=== PATIENT | male | born 1940 | race Caucasian/White ===

== ENCOUNTER → 2017-07-28 08:35 | Outpatient (CLI) | payer MEDICARE, OTHER, SELFPAY ==
[2017-07-22 08:54] VITALS: BP 130/70; BMI 23.5
--- NOTE | 2017-07-28 08:45 | ECHOD_ITS ---
Reason For Study: DYSPNEA/SOB Procedure This was a 2D Doppler, Color Flow transthoracic echocardiogram. Exam performed in department. Left Ventricle Normal LV size. Mild global left ventricular systolic dysfunction. The estimated ejection fraction is 45 %. No regional wall motion abnormalities noted. Right Ventricle Normal RV size. Mild global right ventricular systolic dysfunction. Atria The left atrium is mildly enlarged. Normal right atrium. Mitral Valve Normal mitral valve. Mild (1+) eccentric mitral valve insufficiency. Tricuspid Valve Normal tricuspid valve. Mild (1+) tricuspid valve insufficiency. Pulmonary artery systolic pressure is 32 mmHg. Aortic Valve Normal aortic valve. Trisinus/trileaflet aortic valve. Mild (1+) eccentric aortic valve insufficiency. Pulmonic Valve Normal pulmonic valve. Mild (1+) pulmonic valve insufficiency. Great Vessels Normal aortic root. The pulmonary artery is normal size. Normal inferior vena cava. Pericardium/Pleural No pericardial effusion. MMode/2D Measurements & Calculations LVIDd: 5.3 cm IVSd: 0.99 cm Ao root diam: 3.2 cm LVIDs: 4.1 cm LVPWd: 0.96 cm LA dimension: 4.3 cm RVDd: 4.2 cm FS: 22.7 % LAV(MOD-bp): 64.2 ml LA A4 area: 20.4 cm2 RA A4 area: 17.3 cm2 LAV(MOD-bp) Indexed: 33.8 ml/m2 LAV(MOD-sp2): 62.6 ml LAV(MOD-sp4): 64.8 ml Doppler Measurements & Calculations MV E max farooq: 44.5 cm/sec Lat Peak E' Farooq: 7.3 cm/sec Med Peak E' Farooq: 4.5 cm/sec MV A max farooq: 53.6 cm/sec E/E' lat: 6.1 E/E' med: 9.9 MV E/A: 0.83 Ao V2 max: 89.5 cm/sec AI max farooq: 369.9 cm/sec LV V1 max: 72.7 cm/sec Ao max P.2 mmHg AI max P.8 mmHg LV V1 max P.1 mmHg AI dec slope: 109.5 cm/sec2 AI P1/2t: 989.7 msec MR max farooq: 546.2 cm/sec PA V2 max: 111.6 cm/sec PI dec slope: 129.3 cm/sec2 MR max P.3 mmHg TR max farooq: 259.2 cm/sec TR max P.9 mmHg Interpretation Summary Normal LV size. Mild global left ventricular systolic dysfunction. The estimated ejection fraction is 45 %. Mild (1+) eccentric mitral valve insufficiency. Mild (1+) tricuspid valve insufficiency. Compared to the previous the Lv function is mildly worse Ordering Physician: Pardeep Mason Referring Physician: Manuel Simpson Performed By: Amy Mae, PAKO, RVT
[2017-07-28 10:26] LABS: Anion Gap 7 (5-15); BUN 28 mg/dL (7-18); BUN/Creat Ratio 21.2 RATIO (10-20); Calcium,Total 8.6 mg/dL (8.5-10.1); Chloride 106 mmol/L (98-107); Creatinine, Serum 1.32 mg/dL (0.70-1.30); EST Glomerular Filtration Rate 56 mL/min (>60); Est Glom Filt Rate - Afr Amer 68 mL/min (>60); Glucose 83 mg/dL (74-106); Potassium 4.3 mmol/L (3.5-5.1); Sodium Level 142 mmol/L (136-145)
[2017-07-28 10:27] LABS: BNP,B-Type NATRIURETIC PEPTIDE 54.2 pg/mL (0-100)
== END ==
PROVIDERS: Family Provider Family Medicine; PCP Family Medicine; Visit Provider Internal Medicine Cardiovascular Disease
DX: R06.02 Shortness of breath (principal); I25.10 Atherosclerotic heart disease of native coronary artery without angina pectoris
CPT/HCPCS: 36415; 80048; 83880; 93306

== ENCOUNTER → 2017-12-20 11:29 | Outpatient (CLI) | payer MEDICARE, OTHER, SELFPAY ==
--- NOTE | 2017-12-20 11:35 | RAD_ITS ---
STUDY: X-RAY - ABDOMEN/PELVIS REASON FOR EXAM: Male, 77 years old. Renal calculi. TECHNIQUE: Single AP view of the abdomen / pelvis. COMPARISON: January 12, 2017 FINDINGS: Normal visualized lung bases. There is an unremarkable bowel gas pattern. There is no demonstrated free abdominal air. There is a large granuloma within the spleen, unchanged. There are at least 3 calcifications projected over the left kidney, the largest of which measures 4 mm in diameter. Normal soft tissue structures. Normal visualized osseous structures. RAD/Abdomen Single View IMPRESSION: Progression of left nephrocalcinosis. Electronically Signed: Ray Encinas MD at 17:22 EDT , Service support ,
== END ==
PROVIDERS: Family Provider Family Medicine; PCP Family Medicine; Visit Provider Nurse Practitioner Adult Health
DX: N20.0 Calculus of kidney (principal)
CPT/HCPCS: 74018

== ENCOUNTER → 2017-12-21 10:55 | Outpatient (CLI) | payer MEDICARE, OTHER, SELFPAY ==
--- NOTE | 2017-12-21 11:04 | CT_ITS ---
STUDY: CT ABDOMEN AND PELVIS WITHOUT CONTRAST REASON FOR EXAM: Male, 77 years old. Left flank pain. RADIATION DOSAGE (If Supplied By Facility): CTDIvol = ( 6.52 ) mGy, DLP = ( 307.85 ) mGycm TECHNIQUE: Transaxial images were obtained from the dome of the diaphragm to the symphysis pubis without oral contrast, and without intravenous contrast. Sagittal and coronal images were reconstructed. Individualized dose optimization techniques were used for this CT. COMPARISON: Comparison is made with prior study dated January 04, 2017. FINDINGS: Stable mild degree of increased linear markings at the lung bases suggestive of mild scarring. The visualized portions of the heart are within normal limits. Normal liver. Normal gallbladder and extrahepatic biliary system. Normal spleen. Normal pancreas. Normal bilateral adrenal glands. There is a marked degree of right hydronephrosis and right hydroureter due to a 3 mm calculus in the midportion of the right ureter. A tiny punctate calculus is seen just distal to the 3 mm calculus. This measures approximately 1 mm. Nonobstructive left intrarenal calculi. The largest measures 7 mm and is in the inferior pole. Normal visualized stomach. Normal small intestine. There are multiple colonic diverticula consistent with diverticulosis. The appendix is visualized and appears normal. There is scattered atherosclerotic calcification of the abdominal aorta, without a demonstrated aneurysm. Normal inferior vena cava. Normal retroperitoneum. I suspect a tiny calculus along the posterior base of the urinary bladder. The prostate measures 4.9 cm x 3.9 cm. Normal abdominal wall. 50% loss of height of the L3 vertebrae. This is unchanged. Disc space narrowing and degeneration at the L5-S1 level. CT/Abdomen/Pelvis without Cont IMPRESSION: Marked degree of right hydronephrosis and hydroureter due to a 3 mm calculus in the midportion of the ureter. A tiny calculus also seen just distal to the 3 mm calculus. Multiple nonobstructive left intrarenal calculi. Electronically Signed: Zen Adame MD at 12:01 EDT Tel [phone], Service support ,
== END ==
PROVIDERS: Family Provider Family Medicine; PCP Family Medicine; Visit Provider Nurse Practitioner Adult Health
DX: R10.9 Unspecified abdominal pain (principal)
CPT/HCPCS: 74176

== ENCOUNTER → 2017-12-27 07:38 | Outpatient (CLI) | payer MEDICARE, OTHER, SELFPAY ==
--- NOTE | 2017-12-27 07:49 | EKG12_ITS ---
Test Reason : PREOP Blood Pressure : / mmHG Vent. Rate : 043 BPM Atrial Rate : 043 BPM P-R Int : 238 ms QRS Dur : 110 ms QT Int : 486 ms P-R-T Axes : -44 -59 -28 degrees QTc Int : 410 ms Unusual P axis, possible ectopic atrial bradycardia Left anterior fascicular block Minimal voltage criteria for LVH, may be normal variant ST abnormality, possible digitalis effect Abnormal ECG Confirmed by PRABHU DUFFY, NGUYỄN ([id number]), food editor PATRICIA MENSAH ([id number]) on 12/28/2017 9:25:00 AM Referred By: Mike Dougherty Confirmed By:NGUYỄN PELLETIER MD
[2017-12-27 09:29] LABS: Hematocrit 42.5 % (40-54); Hemoglobin 13.7 g/dl (13.0-16.5); Mean Corp Hgb Conc 32.2 g/gl (32-36); Mean Corpuscular Hgb 29.5 pg (27.0-32.0); Mean Corpuscular Volume 91.4 fL (80-94); Mean Platelet Vol. 9.9 fl (6.2-12.0); Platelet Count 183 K/mm3 (150-450); RBC Distribution Width CV 13.3 % (11.6-14.6); RBC Distribution Width SD 44.1 fl (35.1-43.9); Red Blood Count 4.65 M/mm3 (4.6-6.2); White Blood Count 4.9 K/mm3 (4.4-11.0)
[2017-12-27 09:39] LABS: Scan Indicated on CBC? Y/N NO
[2017-12-27 10:05] LABS: AST(SGOT) 27 U/L (15-37); Alanine Aminotransfer ALT/SGPT 29 U/L (16-61); Albumin, Serum 3.5 g/dL (3.2-5.0); Alkaline Phosphatase 87 U/L (45-117); Anion Gap 8 (5-15); BUN 26 mg/dL (7-18); BUN/Creat Ratio 19.7 RATIO (10-20); Bilirubin, Direct 0.13 mg/dL (0.00-0.30); Calcium,Total 8.9 mg/dL (8.5-10.1); Chloride 105 mmol/L (98-107); Cholesterol 134 mg/dL (200); Creatinine, Serum 1.32 mg/dL (0.70-1.30); EST Glomerular Filtration Rate 56 mL/min (>60); Est Glom Filt Rate - Afr Amer 68 mL/min (>60); Globulin 3.4 g/dL (2.2-4.2); Glucose 57 mg/dL (74-106); High Density Lipoprotein 54 mg/dL; Potassium 4.3 mmol/L (3.5-5.1); Protein, Total 6.9 g/dL (6.4-8.2); Sodium Level 143 mmol/L (136-145); Triglycerides 87 mg/dL; Very Low Density Lipoprotein 17 mg/dL (5-40)
== END ==
PROVIDERS: Family Provider Family Medicine; PCP Family Medicine; Visit Provider Urology
DX: Z01.812 Encounter for preprocedural laboratory examination (principal); I51.9 Heart disease, unspecified; I10 Essential (primary) hypertension
CPT/HCPCS: 36415; 80048; 80061; 80076; 85027; 93005

== ENCOUNTER → 2018-01-20 12:45 | Outpatient (CLI) | payer MEDICARE, OTHER, SELFPAY ==
--- NOTE | 2018-01-20 12:47 | RAD_ITS ---
STUDY: X-RAY - ABDOMEN/PELVIS REASON FOR EXAM: Male, 77 years old. Right renal stone TECHNIQUE: Two AP supine views of the abdomen and pelvis. COMPARISON: December 20, 2017 FINDINGS: Normal visualized lung bases. There is an unremarkable bowel gas pattern. There is no demonstrated free abdominal air. Stent extending from the right renal pelvis the urinary bladder. There are left abdominal calcifications including small renal stone and nonspecific left upper quadrant calcification. There is levoscoliosis with degenerative change of the spine . There is stable L3 compression fracture. RAD/Abdomen Single View IMPRESSION: Right urinary stent. Left renal stone. Electronically Signed: Stevo Barnes MD at 12:06 EDT , Service support ,
== END ==
PROVIDERS: Family Provider Family Medicine; PCP Family Medicine; Visit Provider Urology
DX: N20.0 Calculus of kidney (principal)
CPT/HCPCS: 74018

== ENCOUNTER → 2018-02-07 09:50 | Outpatient (CLI) | payer MEDICARE, OTHER, SELFPAY | PROVIDERS: Family Provider Family Medicine; PCP Family Medicine; Visit Provider Urology | DX: N20.0 Calculus of kidney (principal); R10.9 Unspecified abdominal pain | CPT/HCPCS: 74176 ==

== ENCOUNTER 2018-03-14 11:20 | Day surgery (SDC) | payer MEDICARE, OTHER, SELFPAY ==
[2018-03-14 11:55] VITALS: BP 136/86; PULSE 49; RESP 18; TEMP 36.4; O2SAT 97; BMI 22.6
[2018-03-14] MEDS: Cefazolin 2 GM in 0.9% Normal Saline 100 ML IV (12:58)
--- NOTE | 2018-03-14 13:00 | OP.PN_ITS ---
Immediate Post-Op Note Date of Procedure: 03/14/18 Primary Surgeon/Physician: Ani Hartman rattling machine tender: NOT,DEFINED Pre-Operative Diagnosis: left inguinal hernia Post-Operative Diagnosis: left inguinal hernia - direct and indirect Surgery/Procedure Performed:: left inguinal hernia repair with mesh Description of Surgical Findings:: direct and indirect inguinal hernia Estimated Blood Loss: < 10 Specimen's removed: none Type of Anesthesia:: Local MAC ASA Class: ASA2 Mod Systematic Disease - Admit VTE Documentation VTE Present on Admission: Yes VTE Mechan Device Prophylaxis: SCD's
--- NOTE | 2018-03-14 13:01 | DCINST_ITS ---
Discharge Diet: No Restrictions Discharge Activity: Return to Normal Activity, May not drive while taking narcotic pain medications. Lifting Restrictions: no lifting greater than 50 pounds for one month Call your doctor if your incision/area has: Continuous Slow Oozing, Foul Smelling Discharge Call your doctor if you observe: Fever of 101 or Higher Additional Dressing/Incision Instructions:: Leave dressing in place. May get wet in shower. Do not soak - no tub baths/swimming Allergies/Adverse Reactions: Allergies No Known Allergies Allergy (Verified 03/07/18 09:19) Medications to take at Discharge Aspirin [Aspirin, Baby] 81 mg PO DAILY@0800 10/03/13 Multivitamins,Therapeutic [Multivitamin] 1 tab PO DAILY 10/03/13 Saw [place] 900 mg PO DAILY 10/03/13 Finasteride [Proscar] 5 mg PO DAILY 01/05/17 Melatonin 20 mg PO QHS 01/05/17 famotidine 10 mg chewable tablet 10 mg PO .q day PRN 07/22/17 rosuvastatin 10 mg tablet 10 mg PO DAILY #90 tab 07/22/17 Primary Care Physician: Omer Simpson MD [Primary Care Provider] - Test Results: Test results from this visit will be discussed in further detail at your follow- up appointment, if applicable. Please Follow Up With: Ani Hartman MD - call When: to be seen in 7-10 days, please call for date and time, thank you
--- NOTE | 2018-03-14 14:16 | OP.PCM_ITS ---
Report of Operation Date of Procedure: 03/14/18 Pre-Operative Diagnosis: left inguinal hernia Post-Operative Diagnosis: left inguinal hernia - direct and indirect Surgery/Procedure Performed:: left inguinal hernia repair with mesh Description of Surgical Findings:: direct and indirect inguinal hernia armor reconnaissance specialist: NOT,DEFINED Type of Anesthesia:: Local MAC Anesthesiologist: Shine Ahuja Specimen's removed: none Estimated Blood Loss (mL): < 10 Fluids Replaced: 1000 ml RL Description of Procedure: After informed consent was obtained, patient was brought to the Operating Room. Appropriate time out protocol was followed. He was then placed in the supine position. The patient was then placed under anesthesia. The lower torso and the left groin area and genitalia were then prepped with a surgical skin preparation and appropriate sterile surgical drapes were placed. The anatomical landmarks were identified and after anesthetizing the skin and subcutaneous tissues with 1% xylocaine with epinephrine, a transverse skin incision was made above the level of the internal inguinal ring. The subcutaneous tissues were then sharply dissected down to the external oblique fascia and any hemorrhage was adequately controlled with electrocoagulation. The external oblique was then divided obliquely along the fibers and a muscle-splitting incision was then made to divide the internal oblique musculature and fascia. The transversalis fascia was then identified and was then incised parallel to the inferior hypogastric vessels. The preperitoneal space was then entered. Blunt dissection was then done to identify out Davidson's ligament, the pubic tubercle and a large area surrounding these landmarks for placement of the mesh. The femoral vessels were identified. There was an internal hernia sac identified. The peritoneal sac was then from the spermatic cord blunt dissection. The peritoneal sac was then from the spermatic cord and opened. There were no incarcerated contents. The opening was then ligated with vicryl suture. It was from the spermatic cord proximally to the level of the separation of the gonadal vessels and vas deferens. A large left side 3D Bard Max mesh was then placed in the preperitoneal space such that it would be overlapping medially beyond the pubic tubercle and overlapping inferior to Davidson's ligament. The patient was then placed in the reversed [place] position to ensure that the mesh was laid out properly according to general duty nurse's guidelines. The mesh covered the entire wound opening also. The internal oblique fascia was then closed using interrupted 0 prolene suture. One of the sutures was used to lock the mesh into position. Hemostasis was carefully controlled with electrocoagulation. The external oblique fascia was then reapproximated using a running 0 Vicryl suture. This was carefully done to avoid any entrapment of blood vessels/nerves. Bernadine's fascia was closed using Vicryl suture in an interrupted simple fashion. The skin incision was closed with 4-0 Monocryl in a running subcuticular fashion. Cavilon and Steri-Strips were used to reinforce the skin closure and appropriate sterile dressing was applied. The patient was brought to the Recovery Room in stable condition. Grafts/Implants Used: Bard 3D Max Large mesh - Complications none noted - Admit VTE Documentation VTE Present on Admission: Yes VTE Mechan Device Prophylaxis: SCD's
[2018-03-14 14:17] VITALS: BP 110/68; BP 136/86; PULSE 50; RESP 16; TEMP 36.2; O2SAT 96
[2018-03-14 14:20] VITALS: BP 116/68; BP 136/86; PULSE 52; RESP 14; O2SAT 97
[2018-03-14 14:25] VITALS: BP 117/69; BP 136/86; PULSE 50; RESP 16; O2SAT 97
[2018-03-14 14:30] VITALS: BP 119/71; BP 136/86; PULSE 52; RESP 16; TEMP 36.2; O2SAT 97
[2018-03-14 15:05] VITALS: BP 136/86
== END 2018-03-14 15:05 | disposition home or self-care (01) ==
LOC: SDC 11:21 → AC 11:23
PROVIDERS: Family Provider Family Medicine; PCP Family Medicine; Visit Provider Surgery
PROC: (CPT 49505; principal; 2018-03-14 12:45)
DX: K40.90 Unilateral inguinal hernia, without obstruction or gangrene, not specified as recurrent (principal); K21.9 Gastro-esophageal reflux disease without esophagitis; I10 Essential (primary) hypertension; E78.5 Hyperlipidemia, unspecified; N40.0 Benign prostatic hyperplasia without lower urinary tract symptoms; Z87.442 Personal history of urinary calculi
CPT/HCPCS: 00830; 49505; J7050; J7120; C1781; J2405

== ENCOUNTER 2018-07-16 20:33 | Emergency (ER) | payer MEDICARE, OTHER, SELFPAY ==
[2018-07-16 20:33] VITALS: BMI 23.5
[2018-07-16 20:34] VITALS: BP 162/94; PULSE 60; RESP 18; TEMP 36.8; O2SAT 98; BMI 22.9
--- NOTE | 2018-07-16 21:15 | ED.DCSUM_ITS ---
- ER Visit Summary Date of Service: 07/16/18 Chief Complaint: Left wrist pain History of Present Illness: The patient is a 78 M presenting with left wrist pain. Patient states he was stepping down off a step ladder and lost his balance and fell. He caught himself with his left upper extremity. He did not hit his head or lose consciousness. This occurred several hours ago. He presents due to persistent pain in left wrist. He is not on anticoagulants. Physical Examination: Vitals are stable. Patient is afebrile. Alert no acute distress. HEENT exam is unremarkable. Neck is nontender Lungs are clear and equal bilaterally. Heart is regular rate and rhythm. Abdomen is soft nontender nondistended. Extremities left wrist diffuse tenderness with swelling, elbow and shoulder are nontender Skin is warm and dry. No focal neurologic deficit. Remainder of exam is unremarkable. Emergency Department Course and Treatment: X-ray left wrist shows no fracture. Patient declined pain medication. He was given a Velcro wrist splint. Advised to follow-up with his primary care physician. Advised return to ED if worsening complaints. Disposition: Discharge home Impression: Left wrist sprain This note was generated with [employer] dictation software. It may contain incorrect words, spelling, and punctuation that were not noted in review of the chart prior to signing ED Disposition - Plan for ED Patient: Instructions: ED Sprain Wrist Referrals: Omer Smipson MD [Primary Care Provider] -
--- NOTE | 2018-07-16 21:20 | RAD_ITS ---
STUDY: X-RAY - LEFT WRIST REASON FOR EXAM: Male, 78 years old. Left wrist pain/swelling after fall TECHNIQUE: 3 view(s) of the wrist were obtained. COMPARISON: None. FINDINGS: Normal visualized distal radius and ulna. Normal radiocarpal articulation. Normal distal radioulnar articulation. Normal carpal bones. Normal carpal articulations. There is degenerative arthrosis of the carpometacarpal articulation of the thumb. Normal second through fifth carpometacarpal articulations. Normal visualized metacarpal bones. The soft tissue structures are unremarkable. RAD/Wrist min 3 Views IMPRESSION: No fracture. Electronically Signed: Luciano Danielle MD at 23:17 EST , Service support ,
--- NOTE | 2018-07-16 23:42 | ED.DEP ---
ED Disposition - Plan for ED Patient: Instructions: ED Sprain Wrist Referrals: Omer Simpson MD [Primary Care Provider] -
[2018-07-16 23:56] VITALS: BP 142/77; PULSE 63; RESP 17; O2SAT 94
== END 2018-07-16 23:57 | disposition home or self-care (01) ==
PROVIDERS: Emergency Provider Emergency Medicine; Family Provider Family Medicine; PCP Family Medicine
DX: S63.502A Unspecified sprain of left wrist, initial encounter (principal); W11.XXXA Fall on and from ladder, initial encounter; Y93.9 Activity, unspecified; Y92.89 Other specified places as the place of occurrence of the external cause; Y99.9 Unspecified external cause status
CPT/HCPCS: 73110; 99283

== ENCOUNTER → 2019-03-28 15:01 | Outpatient (CLI) | payer MEDICARE, OTHER, SELFPAY ==
[2018-07-26 09:05] VITALS: BMI 22.5
--- NOTE | 2019-03-28 15:04 | RAD_ITS ---
STUDY: X-RAY - LUMBAR SPINE REASON FOR EXAM: Male, 78 years old. Back pain TECHNIQUE: 5 view(s) of the lumbar spine were obtained. COMPARISON: None FINDINGS: Normal lumbar lordosis. There is mild to moderate levo scoliosis. There is a normal alignment of the vertebrae. There is chronic wedging of superior endplate of L3. No evidence for acute fracture or subluxation.. The disc space heights are well-maintained although there is minor multilevel endplate spurring The soft tissue structures are unremarkable. RAD/L/S Spine Min 4 Views IMPRESSION: Scoliosis and mild degenerative changes. Old fracture of superior endplate of L3. If clinical suspicion for acute injury CT or MRI recommended for further evaluation Electronically Signed: León Ragsdale MD at 22:12 EDT , Service support ,
== END ==
PROVIDERS: Family Provider Family Medicine; PCP Family Medicine; Referring Provider Family Medicine; Visit Provider Family Medicine
DX: M54.9 Dorsalgia, unspecified (principal)
CPT/HCPCS: 72110

== ENCOUNTER → 2019-07-28 10:09 | Outpatient (CLI) | payer OTHER, SELFPAY ==
[2019-07-28 08:58] VITALS: BMI 23.2
[2019-07-28 11:15] LABS: AST(SGOT) 31 U/L (15-37); Alanine Aminotransfer ALT/SGPT 35 U/L (16-61); Albumin, Serum 3.6 g/dL (3.2-5.0); Alkaline Phosphatase 82 U/L (45-117); Bilirubin, Direct 0.18 mg/dL (0.00-0.30); Cholesterol 148 mg/dL (200); Globulin 3.3 g/dL (2.2-4.2); High Density Lipoprotein 62 mg/dL; Protein, Total 6.9 g/dL (6.4-8.2); Triglycerides 47 mg/dL; Very Low Density Lipoprotein 9 mg/dL (5-40)
== END ==
PROVIDERS: PCP Family Medicine; Referring Provider Physician Assistant Medical; Visit Provider Physician Assistant Medical
DX: I25.10 Atherosclerotic heart disease of native coronary artery without angina pectoris (principal); E78.5 Hyperlipidemia, unspecified; R00.1 Bradycardia, unspecified
CPT/HCPCS: 36415; 80061; 80076

== ENCOUNTER → 2019-08-10 12:46 | Outpatient (CLI) | payer MEDICARE, SELFPAY ==
[2019-07-28 08:58] VITALS: BMI 23.2
== END ==
PROVIDERS: PCP Family Medicine; Referring Provider Physician Assistant Medical; Visit Provider Physician Assistant Medical
DX: I25.10 Atherosclerotic heart disease of native coronary artery without angina pectoris (principal); E78.5 Hyperlipidemia, unspecified; R00.1 Bradycardia, unspecified
CPT/HCPCS: 93225; 93226

== ENCOUNTER → 2019-08-14 12:53 | Outpatient (CLI) | payer MEDICARE, SELFPAY ==
[2019-07-28 08:58] VITALS: BMI 23.2
--- NOTE | 2019-08-14 12:54 | ECHOD_ITS ---
Reason For Study: MURMUR Procedure This was a 2D Doppler, Color Flow transthoracic echocardiogram. Exam performed in department. Left Ventricle Normal LV size. Left ventricular systolic function is normal. The estimated ejection fraction is 60 %. Stage 1 diastolic dysfunction. No regional wall motion abnormalities noted. Right Ventricle Normal RV size. Normal systolic function. Atria The left atrium is mildly enlarged. Normal right atrium. Mitral Valve Normal mitral valve. Mild (1+) eccentric mitral valve insufficiency. Tricuspid Valve Mild diffuse thickening of the tricuspid valve. Mild (1+) tricuspid valve insufficiency. Pulmonary artery systolic pressure is 30 mmHg. Aortic Valve Trisinus/trileaflet aortic valve. Mild (1+) aortic valve insufficiency. Pulmonic Valve Normal pulmonic valve. Great Vessels Normal aortic root. The pulmonary artery is normal size. Normal inferior vena cava. Pericardium/Pleural No pericardial effusion. MMode/2D Measurements & Calculations LVIDd: 5.0 cm IVSd: 0.91 cm Ao root diam: 4.1 cm LVIDs: 3.5 cm LVPWd: 0.86 cm RVDd: 3.8 cm FS: 29.1 % LAV(MOD-bp): 57.2 ml LA A4 area: 21.4 cm2 LA dimension(2D): 4.5 cm LAV(MOD-bp) Indexed: 30.6 ml/m2 LAV(MOD-sp2): 49.9 ml LAV(MOD-sp4): 64.8 ml RA A4 area: 14.7 cm2 Time Measurements MV dec time: 0.39 sec Doppler Measurements & Calculations MV E max farooq: 36.4 cm/sec Lat Peak E' Farooq: 8.2 cm/sec Med Peak E' Farooq: 4.5 cm/sec MV A max farooq: 70.4 cm/sec E/E' lat: 4.4 E/E' med: 8.1 MV E/A: 0.52 Ao V2 max: 138.8 cm/sec AI max farooq: 389.2 cm/sec LV V1 max: 107.5 cm/sec Ao max P.7 mmHg AI max P.9 mmHg LV V1 max P.6 mmHg AI dec slope: 169.9 cm/sec2 AI P1/2t: 671.1 msec PA V2 max: 138.5 cm/sec PI end-d farooq: 117.7 cm/sec TR max farooq: 258.9 cm/sec TR max P.8 mmHg Interpretation Summary Normal LV size. Left ventricular systolic function is normal. The estimated ejection fraction is 60 %. Stage 1 diastolic dysfunction. The left atrium is mildly enlarged. Pulmonary artery systolic pressure is 30 mmHg. Mild (1+) aortic valve insufficiency. Ordering Physician: An Cooper/Pardeep Mason Referring Physician: ROSANNA ARAUJO Performed By: Ana Leone, RDCS, RVT
== END ==
PROVIDERS: PCP Family Medicine; Referring Provider Physician Assistant Medical; Visit Provider Physician Assistant Medical
DX: R00.1 Bradycardia, unspecified (principal); I25.10 Atherosclerotic heart disease of native coronary artery without angina pectoris; R01.1 Cardiac murmur, unspecified; E78.5 Hyperlipidemia, unspecified
CPT/HCPCS: 93306

== ENCOUNTER → 2019-10-26 10:39 | Outpatient (CLI) | payer MEDICARE, SELFPAY ==
[2019-09-15 13:32] VITALS: BMI 22.2
--- NOTE | 2019-10-26 10:56 | RAD_ITS ---
STUDY: X-RAY CHEST REASON FOR EXAM: Male, 79 years old. PRE OP PPM IMPLANT TECHNIQUE: PA and lateral views of the chest. COMPARISON: Comparison is made with prior examination October 02, 2013. FINDINGS: The lungs are clear and expanded. There is no demonstrated pleural abnormality. Normal size heart. Normal mediastinum and sonali. Normal visualized pulmonary arteries. There is atherosclerotic calcification of the aortic arch with tortuosity. There is demineralization of the osseous structures. Normal visualized ribs, clavicles, and shoulders. Stable 2.2 cm x 2.5 cm rounded calcified nodule in the left upper quadrant. RAD/Chest PA and Lateral IMPRESSION: Stable examination. Electronically Signed: Zen Adame, at 13:15 EDT , Service support ,
== END ==
LOC: LAB 10:41 → RAD 10:52
PROVIDERS: PCP Family Medicine; Referring Provider Internal Medicine Cardiovascular Disease; Visit Provider Internal Medicine Cardiovascular Disease
DX: I44.1 Atrioventricular block, second degree (principal); I25.10 Atherosclerotic heart disease of native coronary artery without angina pectoris; R00.1 Bradycardia, unspecified
CPT/HCPCS: 71046

== ENCOUNTER 2019-11-03 10:58 | Day surgery (SDC) | payer MEDICARE, SELFPAY ==
[2019-09-15 13:32] VITALS: BMI 22.2
[2019-10-26 10:44] LABS: Bacteria 0 SEEN /hpf (None Seen); Mucous, Urine 0 SEEN /hpf (<or=2+); Red Blood Cells-Urine 0 SEEN /hpf (0-5); Squamous Epithelial Cells - UA 0 SEEN /hpf (0-5)
[2019-10-26 11:27] LABS: Hematocrit 43.3 % (40-54); Hemoglobin 14.5 g/dL (13.0-16.5); Mean Corp Hgb Conc 33.5 g/dL (32-36); Mean Corpuscular Hgb 31.3 pg (27.0-32.0); Mean Corpuscular Volume 93.3 fL (80-94); Mean Platelet Vol. 9.9 fl (6.2-12.0); Platelet Count 154 K/mm3 (150-450); RBC Distribution Width SD 44.2 fl (35.1-43.9); Red Blood Count 4.64 M/mm3 (4.6-6.2); White Blood Count 4.4 K/mm3 (4.4-11.0)
[2019-10-26 11:34] LABS: Prothrombin Time (Protime)PT. 12.6 SECONDS (11.7-14.9)
[2019-10-26 11:38] LABS: Color, Urine Yellow (Yellow); Glucose, Dipstick Normal (Normal); Ketone-Dipstick Negative (Negative); Leukocyte Esterase-Dipstick Negative /ul (Negative); Nitrite-Dipstick Negative (Negative); Occult Blood-Urine Negative /ul (Negative); Protein-Dipstick Negative (Negative); Specific Gravity, Urine 1.015 (1.002-1.030); Urine Bilirubin Dipstick Negative (Negative); Urine Clarity Clear (Clear); Urine Urobilinogen Normal (Normal)
[2019-10-26 11:57] LABS: Anion Gap 7 (5-15); BUN 27 mg/dL (7-18); BUN/Creat Ratio 20.8 RATIO (10-20); Calcium,Total 8.6 mg/dL (8.5-10.1); Chloride 105 mmol/L (98-107); EST Glomerular Filtration Rate 57 mL/min (>60); Est Glom Filt Rate - Afr Amer 69 mL/min (>60); Glucose 109 mg/dL (74-106); Potassium 4.2 mmol/L (3.5-5.1); Sodium Level 140 mmol/L (136-145)
[2019-10-26 11:58] LABS: White Blood Cells 0-5 SEEN /hpf (0-5)
--- NOTE | 2019-11-01 11:16 | PCM.HP.BLA ---
History and Physical Date of Admission: 11/03/19 He is a 79-year-old man with a history of minimal coronary artery disease status post cardiac catheterization in 2013. As you know he has had occasional dizzy spells. 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 He has not had any ralph syncopal episodes. In June 2018 he was noted to have sinus bradycardia during cataract surgery. He went on to have a 24-hour Holter monitor performed which demonstrated periods of sinus rhythm with intermittent second-degree Mobitz type II AV block. His longest pause was 3.3 seconds. His echocardiogram had demonstrated an ejection fraction of 60% with stage I diastolic dysfunction and mild left atrial enlargement. He tells me that he is not had any ralph syncopal spells. He denies any chest pain. 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) Nonobstructive atherosclerosis of coronary artery (Chronic) Hyperlipidemia (Chronic) Sinus bradycardia (Chronic) BPH (benign prostatic hyperplasia) (Chronic) Osteoarthritis (Chronic) Renal calculi (Chronic) Urinary calculi (Chronic) Surgical History History of left heart catheterization (Chronic 11/03/13) History of cataract extraction (Resolved 07/12/19) History of colonoscopy (Resolved) History of cystoscopy (Resolved) History of left inguinal hernia repair (Resolved) History of right inguinal hernia repair (Resolved) Family History Father , age 71 COPD (chronic obstructive pulmonary disease) Brother Cancer brain tumor Social History (Updated 09/15/19 @ 13:[address] Pardeep Mason MD) Smoking Status: Never smoker alcohol intake: current alcohol intake frequency: holidays/special occasions only substance use type: does not use caffeine: Yes Type: carbonated beverages Number of servings: 1, tea Number of servings: 1 ROS Const Const: Negative for fatigue, weakness, headache(s), frequent falls, difficulty sleeping or excessive sweating Eyes Eyes: Negative for loss of peripheral vision, transient loss of vision, blurry vision, double vision or tunnel vision ENT ENT: Negative for headache(s), dizziness, Nosebleed/epistaxis or balance problems Cardio Chest Pain: No Palpitations: No Edema: None Muscle aches with walking: None Resp Respiratory: Negative for SOB with activity, SOB at rest, SOB orthopnea\SOB lying down, Cough or paroxysmal nocturnal dyspnea GI GI: Negative nausea, vomiting, heartburn or black,tarry stools : Negative for hematuria Musc Musc: Negative for muscle aches/ myalgia, muscle weakness, joint pain or balance problems Skin Skin: Negative non-healing lesions, rash or unusual bruising Neuro Neuro: Negative for dizziness, lightheadedness, near syncope, syncope, orthostatic symptoms, frequent falls, headache(s), weakness, blurry vision, double vision or lack of coordination Thiago Hematologic/Lymphatic: Negative for easy bleeding or easy bruising Endo Endo: Negative for fatigue, excessive sweating or increased thirst/drinking Psych Psych: Negative for anxiety or depression Allergy Allergy/Immunology: Negative for hives, Negative for rash Cardiology Exam Const Appearance: cooperative, healthy appearing, no acute distress, well developed and well groomed Nutritional Appearance: average body habitus and well nourished Orientation: alert, awake and oriented x3 Head Head: normal to inspection, normocephalic and atraumatic Ears: hearing grossly normal bilaterally and external ears normal Nose: external nose normal, nares normal, nasal mucous membranes and turbinates normal, septum normal, no nasal discharge Face and Sinus: face symmetric Mouth: oral mucosae normal, tongue normal, oropharynx normal and moist mucous membranes Teeth and gingiva: dentition normal Throat: posterior oropharynx normal, tonsils normal and uvula midline Eyes General: appearance normal, both eyes and all related structures Eyelids: eyelids normal Conjunctivae: conjunctivae normal Pupils: PERRL, normal by confrontation and accommodation normal EOM: EOM intact bilaterally Neck Neck: normal visual inspection, trachea midline and no JVD JVD: +5 Carotids: normal carotid upstroke and bounding pulses Chest Chest inspection: normal inspection of the chest, symmetric chest movement and normal respiratory effort Auscultation: Bilateral: Clear to Auscultation Cardio Palpation: normal PMI Rate: regular rate Rhythm: regular rhythm Heart sounds: S1 normal, S2 normal and normal, physiologic split S2; negative rub, gallop or murmur GI GI: normal to inspection, soft, no hepatosplenomegaly and bowel sounds present Neuro General: alert, awake, oriented x3, gait normal, moves all extremities and no focal sensory deficit Skin Skin: no rashes or lesions noted Extremities Pulses: Normal: Right Femoral Pulse, Left Femoral Pulse, Right Dorsalis Pedis Pulse, Left Dorsalis Pedis Pulse, Right Posterior Tibial Pulse, Left Posterior Tibial Pulse, Right Radial Pulse, Left Radial Pulse Lower Extremity Edema: None: Bilateral Musculoskel Musculoskeletal: No joint tenderness Psych Psychological: normal affect Assessment & Plan 1. Mobitz type 2 second degree atrioventricular block I44.1 Plan He appears to have intermittent Mobitz type II AV block. His longest pause on the Holter monitor was 3.3 seconds. He will proceed with PPM implant and follow-up with Pacemaker clinic on 11/13/2019 at 9 AM. Hopefully, this improves his dizzy spells. 2. Pure hypercholesterolemia E78.00 Plan He does have a history of hyperlipidemia and remains on medium intensity statin. This will be continued. 3. Nonobstructive atherosclerosis of coronary artery I25.10 Plan He has evidence of nonobstructive coronary disease. I would not recommend that we make any changes at this particular time. Thank you for allowing me to participate in the care of your patient. Please don't hesitate to call if any issues arise.
[2019-11-02 14:34] VITALS: BMI 22.2
[2019-11-03] VITALS (13 sets, daily range): BP systolic 116–148; BP diastolic 66–99; PULSE 44–49; RESP 18; TEMP 36.3–36.8; O2SAT 94–100; BMI 22.2
--- NOTE | 2019-11-03 13:34 | CL.IE_ITS ---
Patient: FENG JONES Study Date: 11/03/2019 Performing: Pardeep Mason MD : 1940 Age: 79 Gender: male PROCEDURES PERFORMED [id number] PACER INSERT+DUAL LEADS INDICATIONS Mobitz (type II) AV block PROCEDURE DETAILS The patient was brought to the Catheterization Lab in the postabsorptive nonsedated state. Infor med consent was obtained prior to the procedure. Local anesthetic was given subcutaneously to the le ft upper chest area with Lidocaine 2%. Incision was made to the left subclavicular area. Access was a chieved and a guidewire was advanced into the left subclavian vein. A peel-away sheath was inserted i nto the left subclavian vein - 9fr. PPM ventricular lead was inserted / positioned to right ventricul ar apex. PPM ventricular lead testing performed. PPM ventricular lead testing performed. A peel-away sheath was inserted into the left subclavian vein - 7fr. PPM atrial lead was inserted / positioned to the right atrial appendage. PPM atrial lead testing performed. The Atrial lead sutured in place with 2-0 Silk. The Ventricular PM lead sutured in place with 2-0 Silk. Device pocket was irrigated with a ntibiotic. PPM generator was attached to the lead(s) and inserted into the pocket. PPM generator was then interrogated by the sas clinical programmer. Subcutaneous closure was completed with 3-0 Vicryl . Skin closure was completed with 4-0 Vicryl. Instrument, sponge, and needle counts were noted to be normal. The patient tolerated the procedure well. Estimated Blood Loss: 15 ml's IMPLANTED / EX-PLANTED DEVICES IMPLANTED DEVICE(S): PPM Generator - Car Sander: [employer]TV, Model # L111 , Serial # [id number] PPM Atrial lead - Car Sander: [employer]TV, Model # 7741 , Serial # [id number] PPM Ventricular lead - Car Sander: [employer]TV, Model # 7742 , Serial # [id number] DEVICE PARAMETERS ATRIAL LEAD PARAMETERS: P wave- 1.7 (mV) Current- 1.6 (mA) threshold- 1.2 (V) impedence- 794 (OHMS) VENTRICULAR LEAD PARAMETERS: R wave- 11.7 (mV) Current- 1.2 (mA) threshold- 0.9 (V) impedence- 794 (OHMS) DEVICE PARAMETERS: Mode- DDD Lower rate- 45 Upper rate- 130 CONCLUSIONS / RECOMMENDATIONS Device Conclusions: Successful implantation of a dual chamber pacemaker Device Recommendations: Follow up with Primary Care Physician PROCEDURE MEDICATIONS Versed 1 mg IV Fentanyl 50 mcg IV Oxygen: 2 L/min via nasal cannula Antibiotic given in appropriate timeframe. Signed By Pardeep Mason MD On 11/03/2019 13:32:54 Pardeep Mason MD
[2019-11-03] MEDS: Atorvastatin Calcium 20 MG Tablet PO (21:55)
[2019-11-03] MEDS: MELATONIN 10 MG TABLET 20 MG PO (21:55)
[2019-11-04 02:58] VITALS: PULSE 45
[2019-11-04 04:15] VITALS: BP 130/70; PULSE 46; RESP 18; TEMP 36.6; O2SAT 97
--- NOTE | 2019-11-04 05:55 | RAD_ITS ---
STUDY: X-RAY CHEST REASON FOR EXAM: Male, 79 years old. POST PERM ICD/PACEMAKER. INSPR VW TECHNIQUE: Frontal view COMPARISON: 11/04/2019 FINDINGS: There are pacemaker leads in the RIGHT atrium and RIGHT ventricle. The lungs are clear and expanded. There is no demonstrated pleural abnormality. Normal size heart. Normal mediastinum and sonali. Normal visualized pulmonary arteries. Normal visualized aortic arch and descending thoracic aorta. Normal visualized thoracic spine. Normal visualized ribs, clavicles, and shoulders. There is no demonstrated abnormality of the visualized soft tissue structures of the upper abdomen. RAD/Chest PA and Lateral IMPRESSION: Pacemaker is in proper position. There is NO pneumothorax. Electronically Signed: Paul Johnson MD at 7:43 EDT , Service support ,
[2019-11-04 06:38] VITALS: PULSE 45
--- NOTE | 2019-11-04 06:50 | RAD_ITS ---
STUDY: X-RAY CHEST REASON FOR EXAM: Male, 79 years old. POST PERM ICD/PACEMAKER. EXPR VW TECHNIQUE: Frontal view COMPARISON: 11/04/2019 FINDINGS: There are pacemaker leads in the RIGHT atrium and RIGHT ventricle. The lungs are clear and expanded. There is no demonstrated pleural abnormality. Normal size heart. Normal mediastinum and sonali. Normal visualized pulmonary arteries. Normal visualized aortic arch and descending thoracic aorta. Normal visualized thoracic spine. Normal visualized ribs, clavicles, and shoulders. There is no demonstrated abnormality of the visualized soft tissue structures of the upper abdomen. RAD/Chest 1 View IMPRESSION: Pacemaker is in proper position. There is NO pneumothorax. Electronically Signed: Paul Johnson MD at 7:46 EDT , Service support ,
[2019-11-04 09:18] VITALS: BP 119/61; PULSE 47; RESP 18; TEMP 36.9; O2SAT 98
[2019-11-04] MEDS: Aspirin 81 MG TAB.CHEW PO (09:19)
--- NOTE | 2019-11-04 10:36 | PN.CARD_ITS ---
Subjectve: Patient seen and evaluated. Appears to be doing better. Objective: Vital Signs Temp Pulse Resp BP Pulse Ox 98.4 F 47 L 18 119/61 98 11/04/19 09:18 11/04/19 09:18 11/04/19 09:18 11/04/19 09:18 11/04/19 09:18 Oxygen Delivery Method Room Air Weight: 154 lb 15.759 oz Body Mass Index (BMI) 22.2 Intake and Output for Last 24 Hours 11/02/19 11/03/19 11/04/19 23:59 23:59 23:59 Intake Total 200 / 650 450 / 450 Output Total 200 / 1225 1525 / 1525 Balance 0 / -575 -1075 / -1075 General: Awake, Alert, Oriented x 3 HEENT: PERRL, EOMI, Sclera Non Icteric Neck: Supple, Good ROM, No Lymph Node Enlargement Lungs: Clear to auscultation Cardiovascular: Regular Rhythm, Normal S1, Normal S2, No Murmurs, No Rubs, No Gallops Vascular: No Carotid Bruits, Normal Femoral Pulses, Normal Radial Pulses, Normal Dorsalis Pedal Pulse, Normal Posterior Tibial Pulses Abdomen: Bowel Sounds Present, Soft, Non Tender, No HSM, No Organomegaly Extremities: No Cyanosis, No Clubbing, No edema Neurological: No Focal Motor or Sensory Deficit Rhythm: EKG: ECHO: Stress Test: Cardiac Cath: PCI: CT Surgery: Holter monitor: EPS: PPM: CXR: Chest CT Scan: Medical Necessity - Tobacco Use Smoking Status: Never smoker Assessment/Plan 1. Status post permanent pacemaker implantation for 2-1 heart block. * Patient appears to have done well overnight. Chest x-ray demonstrates no evidence of pneumothorax and leads in good position. * Pacer check appears to be functioning normally. * Will discharge patient home for outpatient follow-up. * Patient will call the office Wednesday for a follow-up appointment.
--- NOTE | 2019-11-04 10:37 | DCINST_ITS ---
Discharge Diet: Low fat/ Low Cholesterol Discharge Activity: May Not Drive May resume sexual activity in: 1 week Call your doctor if your incision/area has: Continuous Slow Oozing, Sudden Increased Bleeding, Increased Pain/ Swelling, Increased Redness, Foul Smelling Discharge, Swelling at the incision site Call your doctor if you observe: Fever of 101 or Higher, Shortness of breath, Dizziness, Fainting spells, Swelling in the ankles, Chest pain, Prolonged hi ccoughing, Increased palpitations (irregular heartbeat) Suture Line Care: Avoid Pulling/Pushing, Avoid Pinching/Bending Remove Dressing in (days):: 3 Cleanse incision/area with: Do not get Incision Wet, Keep Dressing Clean & Dry Additional Dressing/Incision Instructions:: When dressing is removed, wash and dry incision. Keep covered with a light bandage if it is rubbing against your clothing. Do not cover the incision with an airtight bandage. Change the bandage daily. Do not remove steri strips. The strips will fall off on their own. Additional Instructions: Signs and Symptoms to Report to Your Doctor at Once - call your doctor's office or Doctor's Registry ([phone]) Call 911 or go to the nearest Emergency Department if you feel you need urgent care. *Infection (fever, increased redness or swelling at the incision site, drainage from the incision increased pain at the pacemaker site) *Shortness of breath *Dizziness *Fainting spells *Swelling in the ankles *Chest pain *Prolonged hiccoughing *Increased palpitaitons (irregular heartbeat) Medications: Take your pain medication as directed. Refer to your discharge instruction sheet for a list of medications you are to take. Allergies/Adverse Reactions: Allergies No Known Allergies Allergy (Verified 09/15/19 13:32) Medications to take at Discharge Aspirin [Aspirin, Baby] 81 mg PO DAILY@0800 10/03/13 Multivitamins,Therapeutic [Multivitamin] 1 tab PO DAILY 10/03/13 Melatonin 20 mg PO QHS 01/05/17 rosuvastatin 10 mg tablet 10 mg PO DAILY #90 tab 07/28/19 Primary Care Physician: Omer Simpson MD [Primary Care Provider] - Test Results: Test results from this visit will be discussed in further detail at your follow- up appointment, if applicable. When: CALL OFFICE WEDNESDAY FOR AAPPT.[id number] PACER Proposed Discharge Date: 11/04/19
== END 2019-11-04 09:16 | disposition home or self-care (01) ==
LOC: CLSP 11:00 → PCU 14:08
PROVIDERS: PCP Family Medicine; Referring Provider Internal Medicine Cardiovascular Disease; Visit Provider Internal Medicine Cardiovascular Disease
DX: I44.1 Atrioventricular block, second degree (principal); E78.00 Pure hypercholesterolemia, unspecified; I25.10 Atherosclerotic heart disease of native coronary artery without angina pectoris; Z95.0 Presence of cardiac pacemaker
CPT/HCPCS: 33208; 36415; 71045; 71046; 80048; 81001; 85027; 85610; 93005; 99152; 99153; J7040; J7050; C1894

== ENCOUNTER → 2020-06-12 10:08 | Outpatient (CLI) | payer MEDICARE, SELFPAY ==
[2020-06-12 08:24] VITALS: BMI 22.9
[2020-06-12 11:06] LABS: Anion Gap 3 (5-15); BUN 25 mg/dL (7-18); BUN/Creat Ratio 22.5 RATIO (10-20); Calcium,Total 8.7 mg/dL (8.5-10.1); Chloride 108 mmol/L (98-107); Creatinine, Serum 1.11 mg/dL (0.70-1.30); EST Glomerular Filtration Rate 68 mL/min (>60); Est Glom Filt Rate - Afr Amer 82 mL/min (>60); Glucose 96 mg/dL (74-106); Potassium 4.2 mmol/L (3.5-5.1); Sodium Level 139 mmol/L (136-145)
[2020-06-12 11:08] LABS: AST(SGOT) 29 U/L (15-37); Alanine Aminotransfer ALT/SGPT 34 U/L (16-61); Albumin, Serum 3.4 g/dL (3.2-5.0); Alkaline Phosphatase 93 U/L (45-117); Bilirubin, Direct 0.13 mg/dL (0.00-0.30); Cholesterol 145 mg/dL (200); Globulin 3.4 g/dL (2.2-4.2); High Density Lipoprotein 54 mg/dL; Protein, Total 6.8 g/dL (6.4-8.2); Triglycerides 60 mg/dL; Very Low Density Lipoprotein 12 mg/dL (5-40)
== END ==
PROVIDERS: PCP Family Medicine; Referring Provider Internal Medicine Cardiovascular Disease; Visit Provider Internal Medicine Cardiovascular Disease
DX: E78.00 Pure hypercholesterolemia, unspecified (principal); N18.9 Chronic kidney disease, unspecified
CPT/HCPCS: 36415; 80048; 80061; 80076

== ENCOUNTER → 2020-09-24 16:10 | Outpatient (CLI) | payer MEDICARE, SELFPAY ==
[2020-06-12 08:24] VITALS: BMI 22.9
--- NOTE | 2020-09-24 16:14 | RAD_ITS ---
STUDY: X-RAY - ACUTE ABDOMINAL SERIES REASON FOR EXAM: Male, 80 years old. constipation and RLQ painn TECHNIQUE: Single view of the chest. Supine, and erect view(s) of the abdomen were obtained. COMPARISON: None. FINDINGS: Two lead cardiac conduction device is seen via the left subclavian vein with lead tips projecting over the right atrium and right ventricle, respectively. The lungs are clear and expanded. Normal size heart. Normal mediastinum and sonali. Normal visualized pulmonary arteries. Normal visualized aortic arch and descending thoracic aorta. There is fecal residue of the right and left colon. No dilated loops of small bowel. 8 show calcification of the left hemidiaphragm is stable since CT 02/07/2018, doubtful significance (probable sequela of old fat necrosis or postinflammatory lymph node). The soft tissue structures of the abdomen and pelvis are unremarkable. Mild levoscoliosis. Degenerative changes of the lumbar spine. RAD/Acute Abdomen Inc Chest IMPRESSION: 1. Mild colonic fecal retention. Nonobstructive bowel gas pattern. Electronically Signed: Bird Oneal MD ([place]) at 7:29 EDT , Service support ,
[2020-09-24 18:17] LABS: Absolute Lymphocyte Count 0.97 X10^3/uL (0.83-4.51); Absolute Neutrophil Count 4.1 X10^3/uL (2.0-7.7); Basophil# 0.02 X10^3/uL; Basophil% 0.3 % (0-1); Eosinophils% 1.7 % (0-5); Hematocrit 48.1 % (40-54); Hemoglobin 15.6 g/dL (13.0-16.5); Lymphocyte # 0.97 X10^3/ul (4.0); Lymphocyte % 16.2 % (19-41); Mean Corp Hgb Conc 32.4 g/dL (32-36); Mean Corpuscular Hgb 30.3 pg (27.0-32.0); Mean Corpuscular Volume 93.4 fL (80-94); Mean Platelet Vol. 10.1 fl (6.2-12.0); Monocyte# 0.78 X10^3/uL; NRBC Flagged by Analyzer 0 % (0-5); Neutrophil # 4.09 X10^3/uL (2.7-7.7); Neutrophil % 68.3 % (47-70); Platelet Count 173 K/mm3 (150-450); RBC Distribution Width CV 12.7 % (11.6-14.6); RBC Distribution Width SD 43.8 fl (35.1-43.9); Red Blood Count 5.15 M/mm3 (4.6-6.2)
[2020-09-24 18:25] LABS: Erythrocyte Sedimentation Rate 26 mm/hr (0-20)
[2020-09-24 19:04] LABS: ALB/GLOB Ratio 0.9 RATIO (0.9-2.4); AST(SGOT) 26 U/L (15-37); Alanine Aminotransfer ALT/SGPT 27 U/L (16-61); Albumin, Serum 3.5 g/dL (3.2-5.0); Alkaline Phosphatase 85 U/L (45-117); Anion Gap 6 (5-15); BUN 19 mg/dL (7-18); BUN/Creat Ratio 13.3 RATIO (10-20); Calcium,Total 8.9 mg/dL (8.5-10.1); Chloride 104 mmol/L (98-107); Creatinine, Serum 1.43 mg/dL (0.70-1.30); EST Glomerular Filtration Rate 51 mL/min (>60); Est Glom Filt Rate - Afr Amer 62 mL/min (>60); Globulin 3.9 g/dL (2.2-4.2); Glucose 88 mg/dL (74-106); Potassium 4.3 mmol/L (3.5-5.1); Protein, Total 7.4 g/dL (6.4-8.2); Sodium Level 137 mmol/L (136-145)
== END ==
PROVIDERS: PCP Family Medicine; Referring Provider Family Medicine; Visit Provider Family Medicine
DX: R10.813 Right lower quadrant abdominal tenderness (principal); K59.00 Constipation, unspecified
CPT/HCPCS: 74022; 80053; 85025; 85652; 86140

== ENCOUNTER → 2020-09-25 10:08 | Outpatient (CLI) | payer MEDICARE, SELFPAY ==
[2020-06-12 08:24] VITALS: BMI 22.9
[2020-09-25 13:08] LABS: Anion Gap 4 (5-15); BUN 18 mg/dL (7-18); BUN/Creat Ratio 12.2 RATIO (10-20); Chloride 101 mmol/L (98-107); Creatinine, Serum 1.48 mg/dL (0.70-1.30); EST Glomerular Filtration Rate 49 mL/min (>60); Est Glom Filt Rate - Afr Amer 59 mL/min (>60); Glucose 99 mg/dL (74-106); Potassium 4.7 mmol/L (3.5-5.1); Sodium Level 134 mmol/L (136-145)
== END ==
PROVIDERS: PCP Family Medicine; Referring Provider Family Medicine; Visit Provider Family Medicine
DX: R10.9 Unspecified abdominal pain (principal); N18.9 Chronic kidney disease, unspecified
CPT/HCPCS: 36415; 80048; 86140

== ENCOUNTER → 2020-09-30 07:27 | Outpatient (CLI) | payer MEDICARE, SELFPAY ==
[2020-06-12 08:24] VITALS: BMI 22.9
--- NOTE | 2020-09-30 07:29 | CT_ITS ---
STUDY: CT ABDOMEN AND PELVIS WITH CONTRAST REASON FOR EXAM: Male, 80 years old. ABD PAIN. Right flank pain and right lower quadrant pain. History of renal calculi. RADIATION DOSAGE (If Supplied By Facility): CTDIvol = ( 12.8 ) mGy, DLP = ( 1084.62 ) mGycm TECHNIQUE: Transaxial images were obtained from the dome of the diaphragm to the symphysis pubis with oral contrast. Oral and amp; IV Readi-CAT and amp; 100mL Isovue-300 was administered. Sagittal and coronal images were reconstructed. Individualized dose optimization techniques were used for this CT. COMPARISON: Comparison is made with prior examination dated 02/07/2018. FINDINGS: Stable minimal increased markings at the lung bases slightly more prominent on the right side suggestive of mild scarring. A dual-chamber pacemaker is seen. There is decreased attenuation of the liver consistent with steatosis. 4.6 mm cyst in the lateral aspect of the right lobe of the liver. Normal gallbladder and extrahepatic biliary system. Normal spleen. Normal pancreas. Normal bilateral adrenal glands. Marked degree of right hydronephrosis and proximal right hydroureter. A tiny calculus is seen in the proximal portion of the right ureter. Stable tiny nonobstructive left intrarenal calculi. There is a small hiatal hernia. Normal small intestine. There are multiple colonic diverticula consistent with diverticulosis. The appendix is visualized and appears normal. Normal abdominal aorta. Normal inferior vena cava. Normal retroperitoneum. Stable 2.3 cm x 2 cm calcified mesenteric lymph node in the mesenteric fat in the left mid abdomen. Normal urinary bladder. There is enlargement of the prostate gland. The prostate measures 4.9 cm x 4.9 cm. This causes indentation at the bladder base. Normal abdominal wall. 50% loss of height of the superior endplate of the L3 vertebrae. Moderate degree of disc space narrowing and spondylosis at the L5-S1 level. Mild degree of levoscoliosis. CT/Abdomen/Pelvis WITH Contrast IMPRESSION: Marked degree of right-sided hydronephrosis and proximal right hydroureter due to a tiny calculus in the proximal right ureter. Sigmoid diverticulosis. Electronically Signed: Zen Adame MD at 9:10 EDT , Service support ,
== END ==
PROVIDERS: PCP Family Medicine; Referring Provider Family Medicine; Visit Provider Family Medicine
DX: R10.9 Unspecified abdominal pain (principal)
CPT/HCPCS: 74177; Q9967

== ENCOUNTER → 2020-10-04 16:49 | Outpatient (CLI) | payer MEDICARE, SELFPAY ==
[2020-06-12 08:24] VITALS: BMI 22.9
== END ==
PROVIDERS: PCP Family Medicine; Referring Provider Urology; Visit Provider Urology
DX: Z03.818 Encounter for observation for suspected exposure to other biological agents ruled out (principal)
CPT/HCPCS: 87635; C9803; U0002

== ENCOUNTER 2021-04-11 14:17 | Emergency (ER) | payer MEDICARE, SELFPAY ==
[2021-04-11 14:18] VITALS: BP 144/91; PULSE 52; RESP 16; TEMP 36.1; O2SAT 97; BMI 21.9
--- NOTE | 2021-04-11 14:25 | RAD_ITS ---
STUDY: X-RAY - LEFT HAND REASON FOR EXAM: Male, 80 years old. INJURY, PAIN -- LEFT MIDDLE, RING FINGER TECHNIQUE: 3 view(s) of the hand. COMPARISON: None. FINDINGS: Normal radiocarpal articulation. Normal distal radioulnar joint. Normal visualized carpal bones. Normal carpal articulations There is degenerative arthrosis of the carpometacarpal (CMC) articulation of the thumb. Normal second through fifth carpometacarpal joints. Normal metacarpi. Normal metacarpophalangeal joint of the thumb. Normal interphalangeal joint of the thumb. Normal proximal and distal phalanges of the thumb. Normal metacarpophalangeal joints of the second through fifth fingers. There is diffuse articular joint space narrowing of the proximal and distal interphalangeal joints of the second through fifth fingers, but without erosive changes or periarticular soft tissue swelling. Normal phalanges of the second through fifth fingers. Soft tissue laceration overlying the distal phalanx of the fourth digit. No fracture is seen. RAD/Hand Min 3 Views IMPRESSION: Degenerative joint disease of the hand and wrist, as described above. Soft tissue laceration overlying the distal phalanx of the fourth digit. Electronically Signed: Zen Adame MD at 14:46 EDT , Service support ,
--- NOTE | 2021-04-11 15:28 | EX.ED.UPPERE ---
HPI History of Present Illness HPI Narrative: Patient presents with injury to his left ring finger that occurred today approximately 1 hour prior to arrival. Patient states he got it pinched between 2 metal objects. Patient states his pain is very mild at the present time. Patient is unsure of his last tetanus. Patient denies any paresthesias or weakness. Patient states nothing makes the pain better or worse. Chief Complaint: Upper Extremity Injury Informant: patient Occured/Mechanism Mechanism/Context: Yes blunt trauma Onset/Context/Timing Onset: Today Context: Sudden Onset Timing: Continuous Location: Left ring finger Current Severity: Mild Worsened by: Nothing Relieved by: Nothing Narrative Tetanus Immunization: Unknown [facility] Medical History (Updated 04/11/21 @ 17:[address] Pierre Koo DO) BPH (benign prostatic hyperplasia) Hyperlipidemia Mobitz type 2 second degree atrioventricular block Nonobstructive atherosclerosis of coronary artery Osteoarthritis Renal calculi Sinus bradycardia Urinary calculi Home Medications rosuvastatin 10 mg tablet 10 mg PO DAILY #90 tab 06/12/20 [Rx Last Taken Unknown] cephalexin 500 mg PO Q6 #40 capsule 04/11/21 [Rx Last Taken Unknown] Allergy/AdvReac Type Severity Reaction Status Date / Time No Known Allergies Allergy Verified 04/11/21 14:21 Family History Father , age 71 COPD (chronic obstructive pulmonary disease) Brother Cancer brain tumor Surgical History History of cataract extraction (07/12/19) History of colonoscopy History of cystoscopy History of left heart catheterization (11/03/13) History of left inguinal hernia repair History of right inguinal hernia repair Social History Smoking Status: Never smoker alcohol intake: current alcohol intake frequency: holidays/special occasions only substance use type: does not use caffeine: Yes Type: carbonated beverages Number of servings: 1 and tea Number of servings: 1 ROS ROS ED Constitutional Constitutional ED: Denies chills or fever(s) Eyes Eyes: Denies blurry vision or change in vision ENT ENT ED: Denies rhinorrhea or sore throat Cardiovascular Cardiovascular: Denies chest pain or palpitations Respiratory/Chest Respiratory/Chest: Denies cough or dyspnea Gastrointestinal Gastrointestinal: Denies nausea or vomiting Genitourinary Genitourinary ED: Denies dysuria or hematuria Musculoskeletal Musculoskeletal: Denies back pain or neck pain Integumentary Denies abscess or rash Neurologic Neurologic: Denies headache(s) or weakness Allergic/Immunologic Allergic/Immunologic ED: Denies mouth swelling or urticaria EXAM Physical Exam Const Vital Signs: 04/11/21 14:18 Temperature 97.0 F L Temperature Source Temporal Pulse Rate 52 L Respiratory Rate 16 Blood Pressure 144/91 H Blood Pressure Mean 108 Pulse Ox 97 Oxygen Delivery Method Room Air Positive well nourished and well developed General Appearance ED: well developed HEENT Reports moist mucous membranes Neck full ROM Extremity Extremity Narrative: There is some tenderness over the left ring finger. There is no deformity noted. Range of motion was slightly limited in flexion extension of the DIP and PIP joints secondary to pain. There is a 3 cm full-thickness curvilinear laceration over the palmar aspect of the distal phalanx of the left ring finger. There is moderate gapping of the wound margins. There are no foreign bodies. There are no tendon lacerations noted. Sensation was intact to light touch in all digits. Capillary refill was less than 2 seconds in all digits. Neuro oriented x3, CN's II-XII intact bilaterally, moves all extremities, no focal motor deficits and no sensory deficits noted Sensorium / Orientation: alert Motor Exam: strength 5/5 throughout Psych mental status grossly normal MDM MDM MDM Narrative Medical decision making narrative: Patient was given a tetanus booster. X-rays of the left hand were obtained. There are 3 views. On my interpretation, there is no acute fracture. There is no dislocation. There is some mild soft tissue swelling. There are some degenerative changes noted in the wrist and hand. Radiologist also interpreted the x-rays and agrees. The wound was cleaned and irrigated with copious amounts of normal saline. The wound was anesthetized with 1% plain lidocaine via digital block. The wound was closed with 7 simple interrupted #4-0 nylon sutures under sterile technique. Patient tolerated the procedure well. Bacitracin dressing was applied. Patient was given a prescription for Keflex. Patient was given his first dose here. Patient was instructed to keep the hand elevated. Patient was instructed to follow-up with his primary care physician in 7 days for wound recheck and suture removal. Patient understood and was agreeable with the plan. All questions were answered. Radiography Diagnostic Testing: Clinical Impression(s) from Imaging Studies Hand X-Ray 04/11/21 14:25 IMPRESSION: Degenerative joint disease of the hand and wrist, as described above. Soft tissue laceration overlying the distal phalanx of the fourth digit. Electronically Signed: Zen Adame MD at 14:46 EDT , Service support , Procedures Lacerations Left ring finger: Length: 3 cm Depth: Sub Q Shape: Flap Prep: Sterile Conditions and Chlorhexadine Laceration repair: Digital block, Irrigated, Lidocaine and Wound explored Irrigated (ml): 60 Number of Sutures/Hermelinda: 7 Suture Information: Simple and 4-0 Discharge Plan Triage Chief Complaint: Upper Extremity Injury ED Provider: Pierre Koo Dx/Rx/DC Orders Clinical Impression: Laceration of left ring finger Instructions: ED Laceration, Hand: All Closures Prescriptions: New cephalexin [cephalexin] 500 MG capsule 500 mg PO Q6 Qty: 40 RF: 0 No Action rosuvastatin 10 mg tablet 10 mg PO DAILY Qty: 90 RF: 3 Primary Care Provider: Omer Simpson Referrals: Omer Simpson MD [Primary Care Provider] - 7 Days for suture removal Disposition Disposition: Home, Self Care
[2021-04-11] MEDS: Diphth,Pertuss(Acell),Tet Vac 0.5 ML Vial IM (16:31)
[2021-04-11] MEDS: Lidocaine 1% (20 ml mdv) 20 ML Vial INFILT (16:32)
[2021-04-11] MEDS: Cephalexin 500 MG Capsule PO (17:38)
[2021-04-11 17:39] VITALS: RESP 18
== END 2021-04-11 17:40 | disposition home or self-care (01) ==
PROVIDERS: Emergency Provider Emergency Medicine; PCP Family Medicine
DX: S61.215A Laceration without foreign body of left ring finger without damage to nail, initial encounter (principal); W23.0XXA Caught, crushed, jammed, or pinched between moving objects, initial encounter; Y92.9 Unspecified place or not applicable; Y99.9 Unspecified external cause status; E78.5 Hyperlipidemia, unspecified; I44.1 Atrioventricular block, second degree; I25.10 Atherosclerotic heart disease of native coronary artery without angina pectoris; M19.042 Primary osteoarthritis, left hand; N40.0 Benign prostatic hyperplasia without lower urinary tract symptoms; Z23 Encounter for immunization
CPT/HCPCS: 12002; 73130; 90715; 99283

== ENCOUNTER → 2021-10-06 | Outpatient (CLI) | payer MEDICARE, SELFPAY ==
--- NOTE | 2021-10-06 10:03 | RAD_ITS ---
INDICATION: GENERAL ABD PAIN EXAMINATION/TECHNIQUE: X-RAY - XR Abdomen 1 View COMPARISON: CT abdomen and pelvis with contrast from 09/30/2020. FINDINGS: The entirety of the upper, lower, and bilateral lateral aspect of the abdomen are not entirely included in the [id number]. BOWEL GAS PATTERN: Nonobstructive bowel gas pattern. CALCIFICATIONS: There are 0.4 cm left midpole and 0.4 cm left lower pole calculi. There is redemonstration of a radio lucent peripherally calcified left upper quadrant oval lesion corresponding to the calcified lymph node seen on the prior CT from 09/30/2020. LOWER CHEST: Not included in the [id number]. BONES AND SOFT TISSUES: No acute findings in the visualized bones and soft tissues. RAD/Abdomen Single View IMPRESSION: Left-sided nephrolithiasis. Electronically Signed: Delroy Shields, at 10:41 EDT ,
[2021-10-06 11:40] LABS: Hematocrit 46.2 % (40-54); Hemoglobin 15.1 g/dL (13.0-16.5); Mean Corp Hgb Conc 32.7 g/dL (32-36); Mean Corpuscular Hgb 30.1 pg (27.0-32.0); Mean Corpuscular Volume 92.2 fL (80-94); Mean Platelet Vol. 9.7 fl (6.2-12.0); Platelet Count 194 K/mm3 (150-450); RBC Distribution Width CV 12.5 % (11.6-14.6); RBC Distribution Width SD 42.5 fl (35.1-43.9); Red Blood Count 5.01 M/mm3 (4.6-6.2); White Blood Count 4.8 K/mm3 (4.4-11.0)
[2021-10-06 12:14] LABS: Anion Gap 5 (5-15); BUN 29 mg/dL (7-18); BUN/Creat Ratio 20.9 RATIO (10-20); Calcium,Total 9.1 mg/dL (8.5-10.1); Chloride 108 mmol/L (98-107); Creatinine, Serum 1.39 mg/dL (0.70-1.30); EST Glomerular Filtration Rate 52 mL/min (>60); Est Glom Filt Rate - Afr Amer 63 mL/min (>60); Glucose 99 mg/dL (74-106); Sodium Level 138 mmol/L (136-145)
== END | disposition home or self-care (01) ==
PROVIDERS: PCP Family Medicine; Referring Provider Registered Nurse; Visit Provider Registered Nurse
DX: Z01.812 Encounter for preprocedural laboratory examination (principal); R10.84 Generalized abdominal pain
CPT/HCPCS: 36415; 74018; 80048; 85027

== ENCOUNTER → 2021-10-07 | Outpatient (CLI) | payer MEDICARE, SELFPAY ==
--- NOTE | 2021-10-07 12:27 | EKG12_ITS ---
Test Reason : PREOP Blood Pressure : / mmHG Vent. Rate : 050 BPM Atrial Rate : 050 BPM P-R Int : 208 ms QRS Dur : 168 ms QT Int : 530 ms P-R-T Axes : 243 -74 073 degrees QTc Int : 483 ms AV dual-paced rhythm Abnormal ECG Confirmed by ORTIZ DUFFY, AUDREY ([id number]), brands editor TANIA BUCKLEY ([id number]) on 10/08/2021 9:58:50 AM Referred By: Mike Dougherty Confirmed By:AUDREY ALCANTAR MD
== END | disposition home or self-care (01) ==
LOC: PSN 12:05
PROVIDERS: PCP Family Medicine; Referring Provider Urology; Visit Provider Urology
DX: Z01.810 Encounter for preprocedural cardiovascular examination (principal); Z20.822 Contact with and (suspected) exposure to COVID-19
CPT/HCPCS: 87635; 93005; C9803; U0003; U0005

== ENCOUNTER → 2021-12-23 | Outpatient (CLI) | payer MEDICARE, SELFPAY ==
--- NOTE | 2021-12-23 12:57 | CT_ITS ---
STUDY: CT ABDOMEN AND PELVIS WITH CONTRAST REASON FOR EXAM: Male, 81 years old. STRICTURE OF URETER. History of bilateral inguinal hernia repair. RADIATION DOSAGE (If Supplied By Facility): CTDIvol = ( 15.82 ) mGy, DLP = ( 604.72 ) mGycm TECHNIQUE: Transaxial images were obtained from the dome of the diaphragm to the symphysis pubis without oral contrast. IV 100mL Isovue-300 was administered. Sagittal and coronal images were reconstructed. Individualized dose optimization techniques were used for this CT. COMPARISON: Comparison is made with prior examination dated 09/30/2020. FINDINGS: The visualized lung bases are unremarkable. The visualized portions of the heart are within normal limits. A dual chamber pacemaker is seen. There is decreased attenuation of the liver consistent with steatosis. Stable 4.6 mm cyst in the lateral aspect of the right lobe of the liver. There are multiple small gallstones. Normal spleen. Normal pancreas. Normal bilateral adrenal glands. There is mild cortical atrophy of the right kidney, consistent with chronic medical renal disease. Nonobstructive 3 mm calculus in the mid to lower aspect of the left kidney. There is a small hiatal hernia. Normal small intestine. There are multiple colonic diverticula consistent with diverticulosis. The appendix is visualized and appears normal. There is scattered atherosclerotic calcification of the abdominal aorta, without a demonstrated aneurysm. Normal inferior vena cava. Normal retroperitoneum. Stable calcified 2.3 cm x 2 cm mesenteric lymph node in the mesenteric fat in the left midabdomen. Normal urinary bladder. There is enlargement of the prostate gland. It measures 4.5 cm x 4.8 cm. This causes indentation of the bladder base. Prostatic calcification. Normal abdominal wall. Stable loss of height of the superior endplate of L3 vertebrae. Disc space narrowing and spondylosis at the L5-S1 level. CT/Abdomen/Pelvis WITH Contrast IMPRESSION: Prostatic enlargement. 3 mm calculus in the mid lower aspect of the left kidney. Right renal atrophy. Fatty infiltration of the liver. Multiple small gallstones. Electronically Signed: Zen Adame MD at 14:19 EDT ,
[2021-12-23 13:30] LABS: CREATININE FINGERSTICK 1.4 mg/dL (0.70-1.30)
== END | disposition home or self-care (01) ==
LOC: CT 12:57
PROVIDERS: PCP Family Medicine; Referring Provider Urology; Visit Provider Urology
DX: Z01.812 Encounter for preprocedural laboratory examination (principal); N13.5 Crossing vessel and stricture of ureter without hydronephrosis
CPT/HCPCS: 74177; Q9967

== ENCOUNTER → 2022-03-26 | Outpatient (CLI) | payer MEDICARE, SELFPAY ==
--- NOTE | 2022-03-26 13:11 | CT_ITS ---
STUDY: CT LUMBAR SPINE WITH CONTRAST REASON FOR EXAM: Male, 81 years old. STENOSIS RADIATION DOSAGE (If Supplied By Facility): CTDIvol = ( 22.21 ) mGy, DLP = ( 811.84 ) mGycm TECHNIQUE: The patient was scanned in a multi detector CT scanner. High resolution transaxial imaging was performed following the intravenous administration of 10ml ISOVUE-200. Images were obtained from L1 to S1 level. Sagittal and coronal images were reconstructed. Individualized dose optimization techniques were used for this CT. COMPARISON: None FINDINGS: Normal lumbar lordosis. There is no substantial scoliosis. There is 50% loss of height of the superior endplate of the L3 vertebrae. Due to the hypertrophy of the spinous processes, a lumbar puncture was not successful. L1-2: Mild degree of disc space narrowing. Spondylosis. No significant stenosis is seen. L2-3: 50% loss of height of the L3 vertebrae. Mild degree of diffuse posterior disc bulge. Mild degree of bilateral neural foraminal stenosis. L3-4: Mild degree of disc space narrowing. Mild degree of diffuse posterior disc bulge. Hypertrophy of the facet joints. Mild to moderate degree of bilateral neural foraminal stenosis worse on the right side. L4-5: Diffuse posterior disc bulge. Mild degree of bilateral neural foraminal stenosis. This is worse on the right side. Facet joint osteoarthritis and hypertrophy. Minimal degree of anterior listhesis of L4 on L5. L5-S1: Disc space narrowing and disc degeneration. No significant abnormality is seen. Atherosclerotic calcification of the abdominal aorta. CT/Spine Lumbar WITH Contrast IMPRESSION: Detailed findings as described above. Electronically Signed: Zen Adame MD at 15:22 EDT ,
[2022-03-26 13:21] VITALS: BP 147/90; PULSE 50; RESP 16; TEMP 36.2; O2SAT 97; BMI 22.9
--- NOTE | 2022-03-26 13:30 | RAD_ITS ---
PROCEDURE: LUMBAR MYELOGRAM DATE OF EXAMINATION: 03/26/2022. INDICATION: Male, 81 years old. Low back pain. PHYSICIAN: Zen Adame M.D. CONSENT: The patient''s history and physical findings were reviewed. The lumbar myelogram procedure was discussed with the patient prior to signing a consent. SEDATION: Local anesthesia with 3 mL of 1% lidocaine was used. FLUOROSCOPY TIME (if supplied): (5:11) minutes/seconds. Injection Information: 10 cc of ISOVUE M2 100 Number of images obtained: 1 TECHNIQUE: Digital fluoroscopy was used to identify a safe approach for the lumbar myelogram. The back was prepped and draped in usual fashion. Local anesthesia was utilized. Under fluoroscopic guidance a 22-gauge spinal needle was inserted into the spinal canal at the L4-5 level. Clear spinal fluid was seen. 10 mL of Isovue 200 M was injected into the spinal canal. There was evidence of extravasation. RAD/Lumbar Myelogram IMPRESSION: Limited attempted lumbar myelogram. A CT scan will follow. Electronically Signed: Zen Adame MD at 15:19 EDT ,
[2022-03-26] MEDS: Lidocaine 2% (5ml sdv) 5 ML VIAL.MPF INFILT (13:50)
[2022-03-26 14:15] VITALS: BP 153/84; PULSE 49; RESP 14; O2SAT 99
== END | disposition home or self-care (01) ==
LOC: RAD 13:08
PROVIDERS: PCP Family Medicine; Referring Provider Orthopaedic Surgery; Visit Provider Orthopaedic Surgery
DX: M48.061 Spinal stenosis, lumbar region without neurogenic claudication (principal); M43.16 Spondylolisthesis, lumbar region; M47.26 Other spondylosis with radiculopathy, lumbar region
CPT/HCPCS: 62304; 72132; Q9965

== ENCOUNTER 2022-04-25 22:21 | Emergency (ER) | payer MEDICARE, SELFPAY ==
[2022-04-25 22:22] VITALS: BP 147/81; PULSE 57; RESP 14; TEMP 36.7; O2SAT 96; BMI 23.5
--- NOTE | 2022-04-25 22:48 | ED.VIS.LOWEX ---
HPI History of Present Illness Chief Complaint: Lower Extremity Injury Informant: patient Narrative Narrative: Patient was walking a 5K race today. Normally he runs but he has been having sciatic issues on the right side. This is not bothering him now. While he was walking the race, he got a sudden pain on his medial midfoot. It shot a little bit up the anterior coles. It still is sore when he bears weight. No numbness or tingling. No calf pain. No swelling. Of note, he has not been on any fluoroquinolone antibiotics but he did get a steroid shot about 10 days ago. Rest makes this better and use makes it worse. No history of DVTs. [facility] Medical History (Updated 04/26/22 @ 00:[address] Dale Meek MD) BPH (benign prostatic hyperplasia) Hyperlipidemia Mobitz type 2 second degree atrioventricular block Nonobstructive atherosclerosis of coronary artery Osteoarthritis Renal calculi Sinus bradycardia Urinary calculi Home Medications aspirin 81 mg tablet,delayed release (Adult Low Dose Aspirin) 81 mg PO DAILY 06/10/21 [History Last Taken Unknown] rosuvastatin 10 mg tablet 10 mg PO DAILY #90 tabs 06/23/21 [Rx Last Taken Unknown] Allergy/AdvReac Type Severity Reaction Status Date / Time No Known Allergies Allergy Verified 04/25/22 22:22 Family History Father , age 71 COPD (chronic obstructive pulmonary disease) Brother Cancer brain tumor Surgical History History of cataract extraction (07/12/19) History of colonoscopy History of cystoscopy History of left heart catheterization (11/03/13) History of left inguinal hernia repair History of right inguinal hernia repair Social History Smoking Status: Never smoker alcohol intake: current alcohol intake frequency: holidays/special occasions only substance use type: does not use caffeine: Yes Type: carbonated beverages Number of servings: 1 and tea Number of servings: 1 ROS ROS ED Constitutional Constitutional ED: Denies fever(s) Cardiovascular Cardiovascular: Denies chest pain or palpitations Respiratory/Chest Respiratory/Chest: Denies cough or dyspnea Gastrointestinal Gastrointestinal: Denies nausea or vomiting Musculoskeletal Musculoskeletal: Reports other Details: See history of present illness. ; Denies neck pain Integumentary Denies abscess, Abrasions or rash Neurologic Neurologic: Denies paresthesias or weakness Endocrine Endocrinology: Denies polydipsia or polyuria Hematologic/Lymphatic Hematologic/Lymphatic: Denies easy bleeding or easy bruising Allergic/Immunologic Allergic/Immunologic ED: Denies urticaria EXAM Physical Exam Const Vital Signs: 04/25/22 22:22 Temperature 98.1 F Temperature Source Temporal Pulse Rate 57 L Respiratory Rate 14 Blood Pressure 147/81 H Blood Pressure Mean 103 Pulse Ox 96 Oxygen Delivery Method Room Air Positive well nourished and well developed General Appearance ED: well developed and NAD HEENT Reports moist mucous membranes atraumatic Resp normal respiratory effort Back/Spine no CVA tenderness Extremity normal to inspection Extremity Narrative: There is no swelling. No bruising. No change in color. No rashes. He does have tenderness at the medial midfoot. He has pain with dorsi flexion. However this range of motion is intact. No tenderness at the calcaneus. Achilles is intact palpation and Ríos test. His anterior compartments are still soft. There is mild tenderness in them though. No calf or posterior leg tenderness. No cord. Neuro Sensorium / Orientation: alert Psych mental status grossly normal Skin Lesions: no lesions Rashes: no rashes MDM MDM MDM Narrative Medical decision making narrative: X-rays show no process. Patient had sudden onset of a sharp pain. He has pain with dorsiflexion. I wonder if he had a tendinous rupture. These should resolve on their own. There is no calf tenderness. There is no swelling. No indication of DVT. I think ice [id number] meds and rest should be appropriate. If he has continued pain he may need further imaging. We discussed that if he has continued pain or swelling he may need ultrasound at some point. Radiography Diagnostic Testing: Clinical Impression(s) from Imaging Studies Foot X-Ray 04/25/22 22:57 IMPRESSION: No acute abnormal finding. Electronically Signed: Nik Kirby MD at 23:07 EST , Three-view x-ray of the left foot looked at by me and read by radiology shows no sign of acute fracture. Discharge Plan Triage Chief Complaint: Lower Extremity Injury ED Provider: Dale Meek Dx/Rx/DC Orders Clinical Impression: Acute pain of left foot Instructions: Treating Tendonitis of the Foot, ED Foot Sprain Prescriptions: No Action aspirin [Adult Low Dose Aspirin] 81 mg tablet,delayed release (DR/EC) 81 mg PO DAILY rosuvastatin 10 mg tablet 10 mg PO DAILY Qty: 90 3RF Primary Care Provider: Omer Simpson Referrals: Omer Simpson MD [Primary Care Provider] - 1 Week if not improving Disposition Disposition: Home, Self Care
--- NOTE | 2022-04-25 22:57 | RAD_ITS ---
STUDY: X-RAY - LEFT FOOT CLINICAL: Male, 81 years old. Trauma, and medial arch pain TECHNIQUE: 3 view(s) of the foot. COMPARISON: None. FINDINGS: Normal talus, calcaneus, and tarsal bones. Normal visualized subtalar, talonavicular, calcaneocuboid, tarsal and tarsometatarsal articulations. Normal metatarsi. Normal metatarsophalangeal joint of the great toe. Normal tibial and fibular sesamoid bones. Normal interphalangeal joint of the great toe. Normal phalanges of the great toe. Normal second through fifth metatarsophalangeal joints. Normal interphalangeal joints and phalanges of the lesser toes. The soft tissue structures are unremarkable. Old medial malleolus fracture. There is no demonstrated acute fracture. RAD/Foot min 3 Views IMPRESSION: No acute abnormal finding. Electronically Signed: Nik Kirby MD at 23:07 EST ,
[2022-04-26 00:21] VITALS: PULSE 64; RESP 15; O2SAT 99
== END 2022-04-26 00:48 | disposition home or self-care (01) ==
PROVIDERS: Emergency Provider Emergency Medicine; PCP Family Medicine; Visit Provider Emergency Medicine
DX: M79.672 Pain in left foot (principal); I25.10 Atherosclerotic heart disease of native coronary artery without angina pectoris; E78.5 Hyperlipidemia, unspecified
CPT/HCPCS: 73630; 99282

== ENCOUNTER → 2022-07-03 | Outpatient (CLI) | payer MEDICARE, SELFPAY ==
--- NOTE | 2022-07-03 11:30 | MRI_ITS ---
STUDY: MRI LEFT ANKLE WITHOUT CONTRAST REASON FOR EXAM: Male, 82 years old. LEFT ankle pain TECHNIQUE: Standarized fat and water weighted pulse sequences were obtained in all 3 orthogonal planes. COMPARISON: X-ray of the left foot dated April 25, 2022. FINDINGS: Mild reactive edema and subchondral cystic changes are present in the second, third, and fourth TMT articulations which are also mildly narrowed. No occult fractures are present. A small ankle joint effusion is present. No osteochondral defect are visualized on the current study. Normal subcutis adipose space. Normal posterior tibialis tendon. Normal flexor digitorum longus tendon. Normal flexor hallucis longus tendon. Normal peroneus longus and brevis tendons. Normal tibialis anterior tendon. Normal extensor hallucis longus tendon. Normal extensor digitorum longus tendons. Normal Achilles tendon and teno-osseous insertion. Normal plantar fascia. Normal plantar calcaneal tubercles. Normal intrinsic muscles of the rearfoot. Normal distal tibiofibular syndesmotic ligamentous complex. Normal lateral ligamentous complex. Normal subtalar ligaments and sinus tarsi. Normal deltoid ligamentous complexes. Normal plantar calcaneonavicular (spring) ligament. Normal tibiotalar articulation. Normal talar dome. Normal subtalar articulations. Normal talonavicular articulation. Normal calcaneocuboid articulation. Normal navicular-cuneiform articulations. MRI/Lower Ext Joint Only (Routine) IMPRESSION: 1. Mild reactive edema and subchondral cystic changes are present in the second, third, and fourth TMT articulations which are also mildly narrowed. 2. Small ankle joint effusion Electronically Signed: Kvng Olivera MD at 15:38 EST ,
[2022-07-03 11:39] VITALS: BP 145/57; PULSE 70; RESP 18; O2SAT 96
[2022-07-03 11:51] VITALS: BP 147/57; PULSE 70; RESP 18; O2SAT 95
[2022-07-03 12:07] VITALS: BP 138/86; PULSE 70; RESP 18; O2SAT 96
== END | disposition home or self-care (01) ==
PROVIDERS: PCP Family Medicine; Referring Provider Family Medicine; Visit Provider Family Medicine
DX: M25.572 Pain in left ankle and joints of left foot (principal); M25.472 Effusion, left ankle
CPT/HCPCS: 73721

== ENCOUNTER → 2023-05-17 | Outpatient (CLI) | payer MEDICARE, SELFPAY ==
--- NOTE | 2023-05-17 10:49 | STRESSREP_ITS ---
Stress Test Report Pharmacologic myocardial perfusion stress test. 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 Ventricular pacing is noted. Resting blood pressure is 140/84 mmHg. 0.4 mg of regadenoson was infused per usual protocol followed by rapid intravenous saline flush injection. Continuous EKG monitoring was performed. The maximum heart rate was 65 bpm which was 46% of max impacted heart rate the maximum workload was 1 metabolic equivalent. At rest there were no ST or T wave changes noted to suggest ischemia and at peak infusion nonspecific ST changes were noted which did not meet the criteria for ischemia. No clinical angina is noted. The final blood pressure was 132/74 mmHg. Myocardial perfusion protocol. 11 mCi of technetium 99m sestamibi was injected at rest. 0.4 mg of regadenoson was infused per usual protocol. At peak infusion 33.6 mCi of technetium 99m sestamibi was injected stress images were obtained stress and rest images were reconstructed and compared in the short axis vertical long and horizontal long axis. Gated images were also obtained. Perfusion SPECT analysis: Review of the stress images demonstrate normal uptake of tracer noted in all areas of the myocardium. There is mild reduction noted in the inferior septal wall. The resting images similar demonstrated normal uptake of tracer noted in all areas of the myocardium with mild reduction noted in the inferior septal wal l. No areas of reversibility are noted to suggest ischemia and no previous infarct is noted. Gated SPECT analysis: The gated ejection fraction is 47%. Conclusion: Normal pharmacologic myocardial perfusion stress test. Mildly reduced ejection fraction.
== END | disposition home or self-care (01) ==
LOC: CVS 06:16
PROVIDERS: PCP Family Medicine; Referring Provider Nurse Practitioner Family; Visit Provider Nurse Practitioner Family
DX: I47.29 Other ventricular tachycardia (principal); Z95.0 Presence of cardiac pacemaker; I44.1 Atrioventricular block, second degree; R00.1 Bradycardia, unspecified; I25.10 Atherosclerotic heart disease of native coronary artery without angina pectoris; E78.00 Pure hypercholesterolemia, unspecified
CPT/HCPCS: 78452; 93017; A9500; A4216; J2785

== ENCOUNTER → 2023-07-06 | Outpatient (CLI) | payer MEDICARE, SELFPAY ==
--- NOTE | 2023-07-06 12:46 | ECHOD_ITS ---
Version 2 Reason For Study: Other Ventricular Tachycardia Procedure This was a 2D Doppler, Color Flow transthoracic echocardiogram. Exam performed in department. Left Ventricle Normal LV size. Left ventricular systolic function is normal. The estimated ejection fraction is 60 %. No regional wall motion abnormalities noted. Right Ventricle Normal RV size. ICD or pacer leads identified within the right ventricle. Normal systolic function. Atria The left atrium is moderately enlarged. The right atrium is mildly enlarged. Mitral Valve Normal mitral valve. Tricuspid Valve Normal tricuspid valve. Mild to moderate (1-2+) tricuspid valve insufficiency. Pulmonary artery systolic pressure is 45 mmHg. Mild pulmonary hypertension. Aortic Valve Trisinus/trileaflet aortic valve. Mild (1+) eccentric aortic valve insufficiency. Pulmonic Valve Normal pulmonic valve. Great Vessels Normal aortic root. The pulmonary artery is normal size. Normal inferior vena cava. Pericardium/Pleural No pericardial effusion. MMode/2D Measurements & Calculations LVIDd: 5.0 cm IVSd: 1.3 cm Ao root diam: 3.4 cm LVIDs: 3.6 cm LVPWd: 1.0 cm LA dimension: 4.9 cm RVDd: 4.3 cm FS: 29.4 % LAV(MOD-bp): 94.4 ml LVAd ap4: 36.8 cm2 SV(MOD-sp4): 73.4 ml LAV(MOD-bp) Indexed: 48.5 ml/m2 LVLd ap4: 9.1 cm LAV(MOD-sp2): 101.1 ml EDV(MOD-sp4): 124.1 ml LAV(MOD-sp4): 82.7 ml EDV(sp4-el): 126.8 ml LVAs ap4: 21.0 cm2 LVLs ap4: 7.8 cm ESV(MOD-sp4): 50.7 ml ESV(sp4-el): 48.3 ml EF(MOD-sp4): 59.1 % EF(sp4-el): 61.9 % SV(sp4-el): 78.5 ml LA A4 area: 25.1 cm2 RA A4 area: 23.0 cm2 TAPSE: 1.9 cm Time Measurements MV dec time: 0.70 sec Doppler Measurements & Calculations MV E max farooq: 53.1 cm/sec Med Peak E' Farooq: 5.6 cm/sec MV V2 max: 85.7 cm/sec MV A max farooq: 68.7 cm/sec E/E' med: 9.4 MV max P.9 mmHg MV E/A: 0.77 MV V2 mean: 46.8 cm/sec MV mean P.0 mmHg MV V2 VTI: 34.7 cm MV P1/2t max farooq: 85.7 cm/sec Ao V2 max: 123.9 cm/sec AI max farooq: 379.5 cm/sec MV P1/2t: 180.2 msec Ao max P.1 mmHg AI max P.8 mmHg MV dec slope: 139.3 cm/sec2 Ao V2 mean: 80.7 cm/sec AI dec slope: 167.8 cm/sec2 Ao mean P.1 mmHg AI P1/2t: 662.3 msec MVA(P1/2t): 1.2 cm2 Ao V2 VTI: 32.4 cm AV (velocity ratio): 0.75 LV V1 max: 91.0 cm/sec MR max farooq: 498.1 cm/sec PA V2 max: 153.7 cm/sec LV V1 max P.3 mmHg MR max P.3 mmHg LV V1 mean P.9 mmHg LV V1 mean: 64.4 cm/sec LV V1 VTI: 24.3 cm PI end-d farooq: 127.4 cm/sec TR max farooq: 318.4 cm/sec TR max P.5 mmHg ECHO/Echo Complete Interpretation Summary Normal LV size. Left ventricular systolic function is normal. The estimated ejection fraction is 60 %. Pulmonary artery systolic pressure is 45 mmHg. Mild pulmonary hypertension. The left atrium is moderately enlarged. Ordering Physician: Gary Watson Referring Physician: Manuel Simpson MD Performed By: Mychal Phelan RCS
--- OUTSIDE RECORDS SUMMARY | 2023-07-06 13:17 | XMS RPT_ITS | CCD ---
Author Name Unknown Address [address] [facility] [address] [place] [address] Organization [facility] Care Team Providers Care Hydraulic Elevator Constructor Name Role Phone [facility] Nurse Unavailable Unavailable Kayce Claudio Unavailable Unavailable Tina SOTO, [place] Garcia Unavailable Unavailable MATTHIAS LARES Unavailable Unavailable MATTHIAS LARES Unavailable Unavailable ROSANNA ARAUJO Unavailable Unavailcharmaine Mason MD, Pardeep Remy Unavailable Medications Completed/Discontinued Medications Medication Drug Class(es) Dates Sig (Normalized) Sig (Original) aspirin 81 mg oral tablet (8 sources) Platelet Aggregation Inhibitor, Nonsteroidal Anti-inflammatory Drug Start: 07-21-2011 take 1 tablet by mouth once daily ASPIRIN 81 MG TABS One tablet by mouth daily ASPIRIN [id number] Pardeep Mason MD Problems Active Problems Problem Classification Problem Date Documented Date Episodic/Chronic Cardiac dysrhythmias (4 sources) Sinus bradycardia; Translations: [Bradycardia, unspecified] Onset: 07-16-2015 07-16-2015 Chronic Coronary atherosclerosis and other heart disease (8 sources) Atherosclerotic heart disease of [place] coronary artery without angina pectoris; Translations: [Coronary arteriosclerosis] Onset: 07-21-2011 07-16-2015 Chronic Disorders of lipid metabolism (4 sources) Hyperlipidemia; Translations: [Hyperlipidemia, unspecified] Onset: 07-22-2011 07-22-2011 Chronic Unclassified (1 source) Long-term drug therapy; Translations: [Other terminal carman (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 therapy] Onset: 07-17-2011 07-17-2011 Past or Other Problems Problem Classification Problem Date Documented Date Episodic/Chronic Other aftercare (3 sources) Other terminal carman (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 therapy; Translations: [Other fci (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 therapy] Onset: 07-17-2011 07-17-2011 Episodic Other lower respiratory disease (8 sources) Dyspnea; Translations: [Shortness of breath] Onset: 07-17-2011 Resolved: 07-16-2015 07-16-2015 Episodic Other screening for suspected conditions (not mental disorders or infectious disease) (14 sources) Abnormal electrocardiogram [ECG] [EKG]; Translations: [Abnormal result of cardiovascular function study, unspecified] Onset: 07-17-2011 Resolved: 07-16-2015 07-16-2015 Episodic Other screening for suspected conditions (not mental disorders or infectious disease) (2 sources) Abnormal result of cardiovascular function study, unspecified; Translations: [Abnormal result of cardiovascular function study, unspecified] Onset: 07-17-2011 Resolved: 07-16-2015 07-16-2015 Episodic Results Test Name Value Interpretation Reference Range Facil ity Vital Signs Date Time Vital Sign Value Performing Clinician Jana rodríguez 07-16-2016 09:02-0500 BMI (Body Mass Index) 23.1 kg/m2 MD [facility] Work Phone: 07-16-2016 09:02-0500 BP Diastolic 60 mm[Hg] MD [facility] Work Phone: 07-16-2016 09:02-0500 BP Systolic 130 mm[Hg] MD [facility] Work Phone: 07-16-2016 09:02-0500 BSA (Body Surface Area) 1.91 m2 MD [facility] Work Phone: 07-16-2016 09:02-0500 Pulse (Heart Rate) 52 /min MD [facility] Work Phone: 07-16-2016 09:02-0500 Respiratory Rate 20 /min MD [facility] Work Phone: 07-16-2016 09:02-0500 Weight 73.03 kg MD [facility] Work Phone: 07-21-2011 13:14-0500 Height 177.8 cm MD [facility] Work Phone: Encounters Encounter Date Encounter Type Care Provider Facility Start: 03-21-2018 End: 03-24-2018 Patient encounter MATTHIAS LARES [facility] Start: 03-03-2018 End: 03-07-2018 Patient encounter MATTHIAS LARES [facility] Procedures Date Procedure Procedure Detail Performing Clinician Start: 06-11-2017 End: 06-18-2017 *Hepatic Function Panel Jamari Rodriguez Start: 06-11-2017 End: 06-18-2017 Lipid panel [AGGREGATE] Jamari Rodriguez Start: 11-18-2016 End: 12-10-2016 *Hepatic Function Panel Jamari Rodriguez Start: 11-18-2016 End: 12-10-2016 Lipid panel [AGGREGATE] Jamari Rodriguez Start: 07-16-2016 End: 07-16-2016 DORIS Mason MD Start: 07-16-2016 End: 07-16-2016 Follow Up Appt 1 year Pardeep Mason MD Start: 02-28-2016 End: 05-20-2016 *Hepatic Function Panel Jamari Rdoriguez Start: 02-28-2016 End: 05-20-2016 Lipid panel [AGGREGATE] Jamari Rodriguez Start: 08-14-2015 End: 08-28-2015 *Hepatic Function Panel Jamari Rodriguez Start: 08-14-2015 End: 08-28-2015 Lipid panel [AGGREGATE] Jamari Rodriguez Start: 07-16-2015 End: 07-16-2015 DORIS Mason MD Start: 07-16-2015 End: 07-16-2015 Follow Up Appt 1 year Pardeep Mason MD Start: 12-03-2014 End: 12-10-2014 *Hepatic Function Panel Jamari Rodriguez Start: 12-03-2014 End: 12-10-2014 Lipid panel [AGGREGATE] Jamari Rodriguez Start: 07-17-2014 End: 07-17-2014 IC DESIGNER CUSTOM Pardeep Mason MD Start: 07-17-2014 End: 07-18-2014 Documentation of current medications Pardeep Mason MD Start: 07-17-2014 End: 07-17-2014 Follow Up Appt 1 year Pardeep Mason MD Start: 04-14-2014 End: 06-01-2014 *Hepatic Function Panel Jamari Rodriguez Start: 04-14-2014 End: 06-01-2014 Lipid panel [AGGREGATE] Jamari Rodriguez Start: 01-08-2014 End: 01-08-2014 DORIS Cooper PA-C Work Phone: Start: 01-08-2014 End: 01-08-2014 Follow Up Appt 6 months An mcintosh PA-C Work Phone: Start: 10-12-2013 End: 11-09-2013 *Hepatic Function Panel Jamari Rodriguez Start: 10-12-2013 End: 11-09-2013 Lipid panel [AGGREGATE] Jamari Rodriguez Start: 10-11-2013 End: 10-11-2013 DORIS Cooper PA-C Work Phone: Start: 10-11-2013 End: 10-11-2013 Follow Up Appt 3 months An mcintosh PA-C Work Phone: Start: 10-02-2013 End: 10-02-2013 *BMP Pardeep Mason MD Start: 10-02-2013 End: 10-02-2013 CBC W Auto Differential panel - Blood Pardeep Mason MD Start: 10-02-2013 End: 10-06-2013 Chest x-ray Pardeep Mason MD Start: 10-02-2013 End: 10-02-2013 Coagulation factor induced.INR assay in platelet poor plasma Pardeep Mason MD Start: 10-02-2013 End: 10-06-2013 Electrocardiogram, complete Pardeep Merritt i, MD Start: 10-02-2013 End: 10-06-2013 Left Heart Cath Pardeep Mason MD Start: 09-26-2013 End: 01-08-2014 Follow Up Appt 1 year Pardeep Mason MD Start: 09-26-2013 End: 10-02-2013 Stress Echocardiogram (treadmill) Pardeep Mason MD Start: 04-14-2013 End: 04-26-2013 *Hepatic Function Panel Jamari Rodriguez Start: 04-14-2013 End: 04-26-2013 Lipid panel [AGGREGATE] Jamari Rodriguez Start: 10-12-2012 End: 11-03-2012 *Hepatic Function Panel Jamari Rodriguez Start: 10-12-2012 End: 11-03-2012 Lipid panel [AGGREGATE] Jamari Rodriguez Start: 09-23-2012 End: 10-06-2013 *Hepatic Function Panel Jamari Rodriguez Start: 09-23-2012 End: 09-23-2012 IC DESIGNER CUSTOM Pardeep Mason MD Start: 09-23-2012 End: 09-23-2012 Follow Up Appt 1 year Pardeep Mason MD Start: 09-23-2012 End: 10-06-2013 Lipid panel [AGGREGATE] Jamari Rodriguez Start: 04-14-2012 End: 04-19-2012 *Hepatic Function Panel Jamari Rodriguez Start: 04-14-2012 End: 04-19-2012 Lipid panel [AGGREGATE] Jamari Rodriguez Start: 10-26-2011 End: 11-11-2011 *Hepatic Function Panel Jamari Rodriguez Start: 10-26-2011 End: 11-11-2011 Lipid panel [AGGREGATE] Jamari Rodriguez Start: 07-21-2011 End: 07-21-2011 Follow Up Appt 1 year Pardeep Mason MD Plan of Treatment Date Care Activity Detail Author Start: 07-22-2017 End: 07-22-2017 Appointment Appointment [facility] Work Phone: Start: 06-11-2017 End: 06-18-2017 *Hepatic Function Panel *Hepatic Function Panel [facility] Work Phone: Start: 06-11-2017 End: 06-18-2017 Lipid panel [AGGREGATE] *Lipid Profile CC PCP [facility] Work Phone: Start: 11-18-2016 End: 12-10-2016 *Hepatic Function Panel *Hepatic Function Panel [facility] Work Phone: Start: 11-18-2016 End: 12-10-2016 Lipid panel [AGGREGATE] *Lipid Profile CC PCP [facility] Work Phone: Start: 07-16-2016 End: 07-16-2016 IC DESIGNER CUSTOM IC DESIGNER CUSTOM [facility] Work Phone: Start: 07-16-2016 End: 07-16-2016 Follow Up Appt 1 year Follow Up Appt 1 year [facility] Work Phone: Start: 02-28-2016 End: 05-20-2016 *Hepatic Function Panel *Hepatic Function Panel [facility] Work Phone: Start: 02-28-2016 End: 05-20-2016 Lipid panel [AGGREGATE] *Lipid Profile CC PCP [facility] Work Phone: Start: 08-14-2015 End: 08-28-2015 *Hepatic Function Panel *Hepatic Function Panel [facility] Work Phone: Start: 08-14-2015 End: 08-28-2015 Lipid panel [AGGREGATE] *Lipid Profile CC PCP [facility] Work Phone: Start: 07-16-2015 End: 07-16-2015 IC DESIGNER CUSTOM IC DESIGNER CUSTOM [facility] Work Phone: Start: 07-16-2015 End: 07-16-2015 Follow Up Appt 1 year Follow Up Appt 1 year [facility] Work Phone: Start: 12-03-2014 End: 02-13-2015 *Hepatic Function Panel *Hepatic Function Panel [facility] Work Phone: Start: 12-03-2014 End: 02-13-2015 Lipid panel [AGGREGATE] *Lipid Profile CC PCP [facility] Work Phone: Start: 07-17-2014 End: 07-17-2014 IC DESIGNER CUSTOM IC DESIGNER CUSTOM [facility] Work Phone: Start: 07-17-2014 End: 07-17-2014 Follow Up Appt 1 year Follow Up Appt 1 year [facility] Work Phone: Start: 04-14-2014 End: 06-01-2014 *Hepatic Function Panel *Hepatic Function Panel [facility] Work Phone: Start: 04-14-2014 End: 06-01-2014 Lipid panel [AGGREGATE] *Lipid Profile CC PCP [facility] Work Phone: Start: 01-08-2014 End: 01-08-2014 IC DESIGNER CUSTOM IC DESIGNER CUSTOM [facility] Work Phone: Start: 01-08-2014 End: 01-08-2014 Follow Up Appt 6 months Follow Up Appt 6 months [email or web address] Work Phone: Start: 10-12-2013 End: 11-09-2013 *Hepatic Function Panel *Hepatic Function Panel [email or web address] Work Phone: Start: 10-12-2013 End: 11-09-2013 Lipid panel [AGGREGATE] *Lipid Profile CC PCP [email or web address] Work Phone: Start: 10-11-2013 End: 10-11-2013 IC DESIGNER CUSTOM IC DESIGNER CUSTOM [email or web address] Work Phone: Start: 10-11-2013 End: 10-11-2013 Follow Up Appt 3 months Follow Up Appt 3 months [facility] Work Phone: Start: 10-02-2013 End: 10-02-2013 *BMP *[facility] Work Phone: Start: 10-02-2013 End: 10-02-2013 CBC W Auto Differential panel - Blood *CBC without Diff [email or web address] Work Phone: Start: 10-02-2013 End: 10-06-2013 Chest x-ray X-Ray, Chest, PA & Lateral [email or web address] Work Phone: Start: 10-02-2013 End: 10-02-2013 Coagulation factor induced.INR assay in platelet poor plasma *PT/INR [email or web address] Work Phone: Start: 10-02-2013 End: 10-06-2013 Electrocardiogram, complete EKG (In office) [email or web address] Work Phone: Start: 10-02-2013 End: 10-03-2013 Left Heart Cath Left Heart Cath [email or web address] Work Phone: Start: 09-26-2013 End: 01-08-2014 Follow Up Appt 1 year Follow Up Appt 1 year [facility] Work Phone: Start: 09-26-2013 End: 10-02-2013 Stress Echocardiogram (treadmill) Stress Echocardiogram (treadmill) [email or web address] Work Phone: Start: 04-14-2013 End: 04-26-2013 *Hepatic Function Panel *Hepatic Function Panel [facility] Work Phone: Start: 04-14-2013 End: 04-26-2013 Lipid panel [AGGREGATE] *Lipid Profile CC PCP [email or web address] Work Phone: Start: 10-12-2012 End: 11-03-2012 *Hepatic Function Panel *Hepatic Function Panel [email or web address] Work Phone: Start: 10-12-2012 End: 11-03-2012 Lipid panel [AGGREGATE] *Lipid Profile [facility] Work Phone: Start: 09-23-2012 End: 10-06-2013 *Hepatic Function Panel *Hepatic Function Panel [email or web address] Work Phone: Start: 09-23-2012 End: 09-23-2012 IC DESIGNER CUSTOM IC DESIGNER CUSTOM [facility] Work Phone: Start: 09-23-2012 End: 09-23-2012 Follow Up Appt 1 year Follow Up Appt 1 year [facility] Work Phone: Start: 09-23-2012 End: 10-06-2013 Lipid panel [AGGREGATE] *Lipid Profile [facility] Work Phone: Start: 04-14-2012 End: 04-19-2012 *Hepatic Function Panel *Hepatic Function Panel [facility] Work Phone: Start: 04-14-2012 End: 04-19-2012 Lipid panel [AGGREGATE] *Lipid Profile [facility] Work Phone: Start: 10-26-2011 End: 11-11-2011 *Hepatic Function Panel *Hepatic Function Panel [facility] Work Phone: Start: 10-26-2011 End: 11-11-2011 Lipid panel [AGGREGATE] *Lipid Profile [facility] Work Phone: Start: 07-21-2011 End: 07-21-2011 Follow Up Appt 1 year Follow Up Appt 1 year [facility] Work Phone: Patient Education [facility] Work Phone: Summary Purpose Family History No Family History Records Found Advance Directives No Advanced Directives Records Found Additional Source Comments (unrecognized sect ion and content) No Status Records Found INFORMATION SOURCE (unrecogn ized section and content) FOR RECORDS PERTAINING TO PATIENTS WHO ARE OR HAVE BEEN ENROLLED IN A CHEMICAL DEPENDENCY/SUBSTANCEABUSE PROGRAM, SOME INFORMATION MAY BE OMITTED. This clinical summary was aggregated from multiple sources. Caution should be exercised in using it in the provision of clinical care. This summary normalizes information from multiple sources, and as a consequence, information in this document may materially change the coding, format and clinical context of patient data. In addition, data may be omitted in some cases. CLINICAL DECISIONS SHOULD BE BASED ON THE PRIMARY CLINICAL RECORDS. [employer] provides no warranty or guarantee of the accuracy or completeness of information in this document.
== END | disposition home or self-care (01) ==
LOC: CVS 12:45
PROVIDERS: PCP Family Medicine; Referring Provider Nurse Practitioner Family; Visit Provider Nurse Practitioner Family
DX: I47.29 Other ventricular tachycardia (principal)
CPT/HCPCS: 93306

== ENCOUNTER → 2023-07-21 | Outpatient (CLI) | payer MEDICARE, SELFPAY ==
--- NOTE | 2023-07-21 15:05 | RAD_ITS ---
STUDY: X-RAY - ABDOMEN/PELVIS REASON FOR EXAM: Male, 83 years old. ABD PAIN TECHNIQUE: Single AP view of the abdomen / pelvis. COMPARISON: None. FINDINGS: Normal visualized lung bases. Pacemaker leads in place. There is an unremarkable bowel gas pattern. There is no demonstrated free abdominal air. 4.4 mm calcification projecting over the left lower renal pole, likely stone. Larger calcification in the left upper abdomen likely peritoneal based on comparison to CT dated 12/23/2021 and measuring 3 cm. Normal soft tissue structures. 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 Mild degenerative disease of bilateral hips. RAD/Abdomen Single View IMPRESSION: Nonspecific gas pattern with no signs of bowel obstruction or free air. Possible kidney stone. Electronically Signed: Jasmin Guadarrama MD at 2:51 EST ,
[2023-07-21 17:32] LABS: Absolute Lymphocyte Count 0.71 X10^3/uL (0.83-4.51); Absolute Neutrophil Count 5.2 X10^3/uL (2.0-7.7); Basophil# 0.02 X10^3/uL; Basophil% 0.3 % (0-1); Eosinophil# 0.09 X10^3/uL; Eosinophils% 1.4 % (0-5); Hematocrit 39.2 % (40-54); Hemoglobin 12.7 g/dL (13.0-16.5); Lymphocyte # 0.71 X10^3/ul (0.83-4.51); Lymphocyte % 10.7 % (19-41); Mean Corp Hgb Conc 32.4 g/dL (32-36); Mean Corpuscular Hgb 29.5 pg (27.0-32.0); Mean Corpuscular Volume 91.2 fL (80-94); Mean Platelet Vol. 9.6 fl (6.2-12.0); Monocyte# 0.59 X10^3/uL; Monocyte% 8.9 % (0-10); NRBC Flagged by Analyzer 0 % (0-5); Neutrophil # 5.17 X10^3/uL (2.7-7.7); Neutrophil % 78.2 % (47-70); Platelet Count 162 K/mm3 (150-450); RBC Distribution Width CV 12.9 % (11.6-14.6); RBC Distribution Width SD 42.6 fl (35.1-43.9); White Blood Count 6.6 K/mm3 (4.4-11.0)
[2023-07-21 18:20] LABS: ALB/GLOB Ratio 0.8 RATIO (0.9-2.4); AST(SGOT) 27 U/L (15-37); Alanine Aminotransfer ALT/SGPT 31 U/L (16-61); Albumin, Serum 3.1 g/dL (3.2-5.0); Alkaline Phosphatase 76 U/L (45-117); Anion Gap 4 (5-15); BUN 25 mg/dL (7-18); BUN/Creat Ratio 19.7 RATIO (10-20); Calcium,Total 8.9 mg/dL (8.5-10.1); Chloride 109 mmol/L (98-107); Creatinine, Serum 1.27 mg/dL (0.70-1.30); EST Glomerular Filtration Rate 58 mL/min (>60); Est Glom Filt Rate - Afr Amer 70 mL/min (>60); Globulin 3.7 g/dL (2.2-4.2); Glucose 89 mg/dL (74-106); Potassium 3.4 mmol/L (3.5-5.1); Protein, Total 6.8 g/dL (6.4-8.2); Sodium Level 138 mmol/L (136-145)
--- OUTSIDE RECORDS SUMMARY | 2023-07-21 18:56 | XMS RPT_ITS | CCD ---
Author Name Unknown Address [address] [facility] [address] [place] [address] Organization [facility] Care Team Providers Care Industrial Electrician Name Role Phone [facility] Nurse Unavailable Unavailable Kayce Claudio Unavailable Unavailable Tina SOTO, [place] Garcia Unavailable Unavailable MATTHIAS LARES Unavailable Unavailable MATHTIAS LARES Unavailable Unavailable ROSANNA ARAUJO Unavailable Unavailcharmaine Mason MD, Pardeep Remy Unavailable Medications Completed/Discontinued Medications Medication Drug Class(es) Dates Sig (Normalized) Sig (Original) aspirin 81 mg oral tablet (8 sources) Platelet Aggregation Inhibitor, Nonsteroidal Anti-inflammatory Drug Start: 07-21-2011 take 1 tablet by mouth once daily ASPIRIN 81 MG TABS One tablet by mouth daily ASPIRIN [id number] Pardeep Mason MD Problems Active Problems Problem Classification Problem Date Documented Date Episodic/Chronic Cardiac dysrhythmias (4 sources) Sinus bradycardia; Translations: [Bradycardia, unspecified] Onset: 07-16-2015 07-16-2015 Chronic Coronary atherosclerosis and other heart disease (8 sources) Atherosclerotic heart disease of [place] coronary artery without angina pectoris; Translations: [Coronary arteriosclerosis] Onset: 07-21-2011 07-16-2015 Chronic Disorders of lipid metabolism (4 sources) Hyperlipidemia; Translations: [Hyperlipidemia, unspecified] Onset: 07-22-2011 07-22-2011 Chronic Unclassified (1 source) Long-term drug therapy; Translations: [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] Onset: 07-17-2011 07-17-2011 Past or Other Problems Problem Classification Problem Date Documented Date Episodic/Chronic Other aftercare (3 sources) 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; Translations: [Other detention (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 therapy] Onset: 07-17-2011 07-17-2011 Episodic [...] 03-21-2018 End: 03-24-2018 Patient encounter MATTHIAS LARES [facility] Start: 03-03-2018 End: 03-07-2018 Patient encounter MATTHIAS LARES [facility] Procedures Date Procedure Procedure Detail Performing Clinician Start: 06-11-2017 End: 06-18-2017 *Hepatic Function Panel Jamari Rodriguez Start: 06-11-2017 End: 06-18-2017 Lipid panel [AGGREGATE] Jamari Rodriguez Start: 11-18-2016 End: 12-10-2016 *Hepatic Function Panel Jamari Rodriguez Start: 11-18-2016 End: 12-10-2016 Lipid panel [AGGREGATE] Jamari Rodriugez Start: 07-16-2016 End: 07-16-2016 DORIS Mason MD Start: 07-16-2016 End: 07-16-2016 Follow Up Appt 1 year Pardeep Mason MD Start: 02-28-2016 End: 05-20-2016 *Hepatic Function Panel Jamari Rodriguez Start: 02-28-2016 End: 05-20-2016 Lipid panel [AGGREGATE] [...] [AGGREGATE] Jamari Rodriguez Start: 07-17-2014 End: 07-17-2014 RESIDENTIAL TREATMENT COUNSELOR Pardeep Mason MD Start: 07-17-2014 End: 07-18-2014 [...] Panel Jamari Rodriguez Start: 09-23-2012 End: 09-23-2012 RESIDENTIAL TREATMENT COUNSELOR Pardeep Mason MD Start: 09-23-2012 End: 09-23-2012 [...] 06-18-2017 *Hepatic Function Panel *Hepatic Function Panel [facility] Work Phone: Start: 06-11-2017 End: 06-18-2017 Lipid panel [AGGREGATE] *Lipid Profile CC PCP [facility] Work Phone: Start: 11-18-2016 End: 12-10-2016 *Hepatic Function Panel *Hepatic Function Panel [facility] Work Phone: Start: 11-18-2016 End: 12-10-2016 Lipid panel [AGGREGATE] *Lipid Profile CC PCP [facility] Work Phone: Start: 07-16-2016 End: 07-16-2016 RESIDENTIAL TREATMENT COUNSELOR RESIDENTIAL TREATMENT COUNSELOR [facility] Work Phone: Start: 07-16-2016 End: 07-16-2016 Follow Up Appt 1 year Follow Up Appt 1 year [facility] Work Phone: Start: 02-28-2016 End: 05-20-2016 *Hepatic Function Panel *Hepatic Function Panel [facility] Work Phone: Start: 02-28-2016 End: 05-20-2016 Lipid panel [AGGREGATE] *Lipid Profile CC PCP [facility] Work Phone: Start: 08-14-2015 End: 08-28-2015 *Hepatic Function Panel *Hepatic Function Panel [facility] Work Phone: Start: 08-14-2015 End: 08-28-2015 Lipid panel [AGGREGATE] *Lipid Profile CC PCP [facility] Work Phone: Start: 07-16-2015 End: 07-16-2015 RESIDENTIAL TREATMENT COUNSELOR RESIDENTIAL TREATMENT COUNSELOR [facility] Work Phone: Start: 07-16-2015 End: 07-16-2015 Follow Up Appt 1 year Follow Up Appt 1 year [facility] Work Phone: Start: 12-03-2014 End: 02-13-2015 *Hepatic Function Panel *Hepatic Function Panel [facility] Work Phone: Start: 12-03-2014 End: 02-13-2015 Lipid panel [AGGREGATE] *Lipid Profile CC PCP [facility] Work Phone: Start: 07-17-2014 End: 07-17-2014 RESIDENTIAL TREATMENT COUNSELOR RESIDENTIAL TREATMENT COUNSELOR [facility] Work Phone: Start: 07-17-2014 End: 07-17-2014 Follow Up Appt 1 year Follow Up Appt 1 year [facility] Work Phone: Start: 04-14-2014 End: 06-01-2014 *Hepatic Function Panel *Hepatic Function Panel [facility] Work Phone: Start: 04-14-2014 End: 06-01-2014 Lipid panel [AGGREGATE] *Lipid Profile CC PCP [facility] Work Phone: Start: 01-08-2014 End: 01-08-2014 RESIDENTIAL TREATMENT COUNSELOR RESIDENTIAL TREATMENT COUNSELOR [facility] Work Phone: Start: 01-08-2014 End: 01-08-2014 Follow Up Appt 6 months Follow Up Appt 6 months [facility] Work Phone: Start: 10-12-2013 End: 11-09-2013 *Hepatic Function Panel *Hepatic Function Panel [email or web address] Work Phone: Start: 10-12-2013 End: 11-09-2013 Lipid panel [AGGREGATE] *Lipid Profile CC PCP [email or web address] Work Phone: Start: 10-11-2013 End: 10-11-2013 RESIDENTIAL TREATMENT COUNSELOR RESIDENTIAL TREATMENT COUNSELOR [email or web address] Work Phone: Start: 10-11-2013 End: 10-11-2013 Follow Up Appt 3 months Follow Up Appt 3 months [facility] Work Phone: Start: 10-02-2013 End: 10-02-2013 *BMP *BMP [facility] Work Phone: Start: 10-02-2013 End: 10-02-2013 CBC W Auto Differential panel - Blood *CBC without Diff [email or web address] Work Phone: Start: 10-02-2013 End: 10-06-2013 Chest x-ray X-Ray, Chest, PA & Lateral [email or web address] Work Phone: Start: 10-02-2013 End: 10-02-2013 Coagulation factor induced.INR assay in platelet poor plasma *PT/INR [email or web address] Work Phone: Start: 10-02-2013 End: 10-06-2013 Electrocardiogram, complete EKG (In office) [email or web address] Work Phone: Start: 10-02-2013 End: 10-03-2013 Left Heart Cath Left Heart Cath [email or web address] Work Phone: Start: 09-26-2013 End: 01-08-2014 Follow Up Appt 1 year Follow Up Appt 1 year [facility] Work Phone: Start: 09-26-2013 End: 10-02-2013 Stress Echocardiogram (treadmill) Stress Echocardiogram (treadmill) [facility] Work Phone: Start: 04-14-2013 End: 04-26-2013 *Hepatic Function Panel *Hepatic Function Panel [facility] Work Phone: Start: 04-14-2013 End: 04-26-2013 Lipid panel [AGGREGATE] *Lipid Profile CC PCP [facility] Work Phone: Start: 10-12-2012 End: 11-03-2012 *Hepatic Function Panel *Hepatic Function Panel [facility] Work Phone: Start: 10-12-2012 End: 11-03-2012 Lipid panel [AGGREGATE] *Lipid Profile [facility] Work Phone: Start: 09-23-2012 End: 10-06-2013 *Hepatic Function Panel *Hepatic Function Panel [facility] Work Phone: Start: 09-23-2012 End: 09-23-2012 RESIDENTIAL TREATMENT COUNSELOR RESIDENTIAL TREATMENT COUNSELOR [facility] Work Phone: Start: 09-23-2012 End: 09-23-2012 Follow Up Appt 1 year Follow Up Appt 1 year [facility] Work Phone: Start: 09-23-2012 End: 10-06-2013 Lipid panel [AGGREGATE] *Lipid Profile [facility] Work Phone: Start: 04-14-2012 End: 04-19-2012 *Hepatic Function Panel *Hepatic Function Panel [facility] Work Phone: Start: 04-14-2012 End: 04-19-2012 Lipid panel [AGGREGATE] *Lipid Profile [facility] Work Phone: Start: 10-26-2011 End: 11-11-2011 *Hepatic Function Panel *Hepatic Function Panel [facility] Work Phone: Start: 10-26-2011 End: 11-11-2011 Lipid panel [AGGREGATE] *Lipid Profile [facility] Work Phone: Start: 07-21-2011 End: 07-21-2011 Follow Up Appt 1 year Follow Up Appt 1 year [facility] Work Phone: Patient Education [facility] [...] BE BASED ON THE PRIMARY CLINICAL RECORDS. [employer] provides no warranty or guarantee of the accuracy or completeness of information in this document.
== END | disposition home or self-care (01) ==
PROVIDERS: PCP Family Medicine; Referring Provider Family Medicine; Visit Provider Family Medicine
DX: R10.9 Unspecified abdominal pain (principal)
CPT/HCPCS: 36415; 74018; 80053; 85025

== ENCOUNTER 2024-04-07 21:06 | Emergency (ER) | payer MEDICARE, SELFPAY ==
[2024-04-07 21:07] VITALS: BP 135/105; PULSE 53; RESP 18; TEMP 36.6; O2SAT 97; BMI 23.3
--- NOTE | 2024-04-07 21:40 | EX.ED.UPPERE ---
HPI History of Present Illness Chief Complaint: Laceration Informant: patient Narrative Narrative: Laceration right forearm 3 PM after tripped and fell using a leaf blower. Some baby aspirin. Tetanus 2020 and records here. No head injuries. Bleeding uncontrolled therefore came here. No paresthesias. No loss of function. Tetanus Immunization: <5 years [facility] Medical History Non-sustained ventricular tachycardia Mobitz type 2 second degree atrioventricular block Nonobstructive atherosclerosis of coronary artery Osteoarthritis BPH (benign prostatic hyperplasia) Urinary calculi Renal calculi Hyperlipidemia Sinus bradycardia Home Medications ?Medication ?Instructions ?Recorded ?Last Taken ?Type aspirin 81 mg tablet,delayed 81 mg PO DAILY 06/10/21 Unknown History release (Adult Low Dose Aspirin) rosuvastatin 10 mg tablet See Rx Instructions .Route 06/10/23 Unknown Rx .COMPLEX #90 tabs metoprolol succinate 25 mg 25 mg PO DAILY #90 tabs 07/27/23 Unknown Rx tablet,extended release 24 hr Allergy/AdvReac Type Severity Reaction Status Date / Time No Known Allergies Allergy Verified 04/07/24 21:07 Family History Father , age 71 COPD (chronic obstructive pulmonary disease) Brother Cancer brain tumor Surgical History S/P ureteral stent placement 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) History of cataract extraction (07/12/19) History of left inguinal hernia repair History of colonoscopy History of right inguinal hernia repair History of cystoscopy History of left heart catheterization (11/03/13) Social History Smoking Status: Never smoker alcohol intake: current alcohol intake frequency: holidays/special occasions only substance use type: does not use caffeine: Yes Type: carbonated beverages Number of servings: 1 and tea Number of servings: 1 ROS ROS ED Constitutional Constitutional ED: Denies fever(s) Cardiovascular Cardiovascular: Denies chest pain Musculoskeletal Musculoskeletal: Denies back pain or neck pain Integumentary Reports other Neurologic Neurologic: Denies paresthesias or weakness EXAM Physical Exam Const Vital Signs: 04/07/24 21:07 Temperature 98 F Temperature Source Temporal Pulse Rate 53 L Respiratory Rate 18 Blood Pressure 135/105 H Blood Pressure Mean 115 Pulse Ox 97 Oxygen Delivery Method Room Air Positive well nourished and well developed Constitutional Narrative: GCS 15. General Appearance ED: well developed and NAD HEENT Reports moist mucous membranes HEENT Narrative: Hearing aids bilaterally. normocephalic and atraumatic Eyes EOMs intact bilaterally and conjunctivae normal General Eye ED: Yes normal appearance of both eyes Neck full ROM, no lymphadenopathy and supple General: Negative for tenderness Chest Wall Chest: Negative for tenderness Resp normal respiratory effort and normal air movement Effort and Inspection: symmetric chest movement; Negative for respiratory distress Cardio regular rate, regular rhythm and no murmurs Peripheral Pulses: pulses 2+ throughout GI normal to inspection, nondistended, normoactive bowel sounds and non-tender Palpation: Negative for guarding or rebound tenderness present Back/Spine no CVA tenderness and no thoracic nor lumbar tenderness Extremity Extremity Narrative: Full range of motion upper extremities shoulders elbows and wrist. Right forearm proximal medial dorsal aspect flap laceration 4 cm. Bleeding controlled with pressure. No pain of the olecranon. General Extremety ED: Negative for edema or tenderness General Extremity: Negative for edema Neuro oriented x3 and no sensory deficits noted Sensorium / Orientation: awake and alert Skin Skin Narrative: See above MDM MDM MDM Narrative Medical decision making narrative: Interventions / MDM: Differential diagnosis: Fall, forearm laceration Diagnosis considered but do not suspect: No visualized foreign body. My EKG interpretation: N/A Imaging independently reviewed and interpreted by myself: N/A External documents reviewed: N/A Test considered but not ordered:N/A ED course: Patient skin laceration there is no bony tenderness. Tetanus is up-to-date. Will prep for suture repair. Procedure note: Verbal consent. Laceration repair. Normal sterile conditions. 2 cc 1% lidocaine used for local analgesia. Copiously flushing with 200 cc of normal saline. Flap rolled back, no gross validation of foreign body no palpation of foreign body. Laceration repaired initially with a corner stitch of 5-0 nylon suture. Additional 4 simple interrupted sutures were placed with good approximation of the wound. Hemostasis achieved. Bacitracin, dressing was placed by myself. Patient tolerated procedure well. Wound care was discussed with the patient. His appointment with his PCP in 10 days as he had removal of lesion from his back earlier today. Re-evaluation: stable Disposition discussed with patient/family/significant other: Patient Case discussed with consulting clinician: N/A This note was generated with [employer] dictation software. It may contain incorrect words, spelling, and punctuation that were not noted in checking the note before signing. Discharge Plan Triage Chief Complaint: Laceration ED Provider: Jose Clancy Dx/Rx/DC Orders Clinical Impression: Laceration of forearm, right, Fall Instructions: ED Laceration Extremity Prescriptions: No Action aspirin [Adult Low Dose Aspirin] 81 mg tablet,delayed release (DR/EC) 81 mg PO DAILY metoprolol succinate 25 mg tablet extended release 24 hr 25 mg PO DAILY Qty: 90 3RF rosuvastatin 10 mg tablet See Rx Instructions .ROUTE .COMPLEX Qty: 90 3RF Dose Instruction: TAKE 1 TABLET DAILY Rx Instructions: TAKE 1 TABLET DAILY Primary Care Provider: Manuel Simpson Referrals: Manuel Simpson MD [Primary Care Provider] - Keep [facility] appointment Activity Restrictions/Additional Instructions: 5 sutures placed including corner stitch to your laceration. Wound care as discussed. Follow-up your doctor as scheduled for suture removal. Print Language: Tongan Disposition Disposition: Home, Self Care
[2024-04-07] MEDS: Lidocaine 1% (20 ml mdv) 20 ML Vial INFILT (21:49)
--- OUTSIDE RECORDS SUMMARY | 2024-04-07 22:23 | XMS RPT_ITS | CCD ---
Author Organization [facility] [place] [facility] Care Team Providers Care Hose Turner Name Role Phone [facility] Nurse Unavailable Unavailable Kayce Claudio Unavailable [...] TABS One tablet by mouth daily ASPIRIN [id number] Pardeep Mason MD Start: 07-21-2011 take 1 tablet by kirt th once daily ASPIRIN 81 MG TABS One tablet by mouth daily ASPIRIN [id number] Pardeep Mason MD Start: 07-21-2011 take 1 tablet by kirt th once daily ASPIRIN EC 81 MG TBEC One tablet by mouth daily ASPIRIN [id number] Sisi Renae RN dutasteride 0.5 mg oral capsule (8 sources) 5-alpha Reductase Inhibitor Start: 09-23-2012 End: 07-16-2016 take 1 tablet by mouth once daily AVODART 0.5 MG CAPS One tablet by mouth daily DUTASTERIDE [id number] Pardeep Mason MD famotidine 10 mg chewable tablet (8 sources) Histamine-2 Receptor Antagonist Start: 07-17-2011 take 2 tablets by mouth once daily as needed PEPCID AC 10 MG CHEW Two tablets by mouth daily as needed FAMOTIDINE [id number] Pardeep Mason MD Start: 07-17-2011 take 2 tablets by mo [facility] once daily as needed PEPCID AC 10 MG CHEW Two tablets by mouth daily as needed FAMOTIDINE [id number] Pardeep Mason MD finasteride 5 mg oral tablet (4 sources) 5-alpha Reductase Inhibitor Start: 07-16-2016 take 1 tablet by mouth once daily FINASTERIDE 5 MG TABS One tablet by mouth daily FINASTERIDE [id number] Pardeep Mason MD lisinopril 2.5 mg oral tablet (12 sources) Angiotensin Converting Enzyme Inhibitor Start: 10-11-2013 End: 07-24-2015 take 1 tablet by mouth once daily LISINOPRIL 2.5 MG TABS One tablet by mouth daily LISINOPRIL [id number] An Cooper PA-C melatonin 10 mg oral capsule (4 sources) Start: 07-16-2016 take 2 tablets by mouth at bedtime as needed MELATONIN 10 MG CAPS Two tablets by mouth at bedtime as needed MELATONIN [id number] Pardeep Mason MD MULTIPLE VITAMIN (3 sources) Start: 07-17-2011 take 1 tablet by mouth once daily MULTIVITAMINS TABS One tablet by mouth daily MULTIPLE VITAMIN [id number] Sheyla Paz MULTIPLE VITAMIN (1 source) Start: 07-17-2011 take 1 tablet by mouth once daily MULTIVITAMINS TABS One tablet by mouth daily MULTIPLE VITAMIN [id number] Sheyla Paz rosuvastatin calcium 10 mg oral tablet (20 sources) HMG-CoA Reductase Inhibitor Start: 08-03-2011 take 1 tablet by mouth at bedtime CRESTOR 10 MG TABS One tablet by mouth at bedtime. ROSUVASTATIN CALCIUM [id number] An Cooper PA-C Start: 07-22-2011 take 2 tablets by mo [facility] once daily CRESTOR 5 MG TABS Two tablest by mouth daily ROSUVASTATIN CALCIUM [id number] Melanie Nieto RN Start: 07-17-2011 take [address] tablet [address] [facility] once daily CRESTOR 5 MG TABS One tablet by mouth daily ROSUVASTATIN CALCIUM [id number] Pardeep Mason MD saw palmetto extract 1000 mg oral capsule (4 sources) Start: 07-17-2011 take 1 tablet by mouth once daily SAW PALMETTO 1000 MG CAPS One tablet by mouth daily SAW ZAIDA (SERENOA REPENS) [id number] Sheyla Kauffman Brandi Start: 07-17-2011 take 1 tablet by kirt th once daily SAW PALMETTO 1000 MG CAPS One tablet by mouth daily SAW PALMETTO (SERENOA REPENS) [id number] Sheyla Kauffman Paz tamsulosin hydrochloride 0.4 mg oral capsule (8 sources) alpha-Adrenergic Ambrosio Start: 09-23-2012 End: 07-16-2016 take 1 tablet by mouth once daily FLOMAX 0.4 MG CAPS One tablet by mouth daily TAMSULOSIN HCL [id number] [place] Wilder RN valsartan 80 mg oral tablet (8 sources) Angiotensin 2 Receptor Ambrosio Start: 07-17-2011 End: 07-21-2011 take 1 tablet by mouth once daily DIOVAN 80 MG TABS One tablet by mouth daily VALSARTAN [id number] Sheyla M Brandi Problems Active Problems Problem Classification Problem Date Documented Date Episodic/Chronic Cardiac dysrhythmias (4 sources) Sinus bradycardia; Translations: [Bradycardia, unspecified] Onset: 07-16-2015 07-16-2015 Chronic Coronary atherosclerosis and other heart disease (8 sources) Atherosclerotic heart disease of [place] coronary artery without angina pectoris; Translations: [Coronary arteriosclerosis] Onset: 07-21-2011 07-16-2015 Chronic Disorders of lipid metabolism (4 sources) Hyperlipidemia; Translations: [Hyperlipidemia, unspecified] Onset: 07-22-2011 07-22-2011 Chronic Unclassified (1 source) Long-term drug therapy; Translations: [Other long term care administrator (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 therapy] Onset: 07-17-2011 07-17-2011 Past or Other Problems Problem Classification Problem Date Documented Date Episodic/Chronic Other aftercare (3 sources) Other long term care administrator (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 therapy; Translations: [Other senior care (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 therapy] Onset: 07-17-2011 07-17-2011 Episodic [...] BNP 54.2 pg/mL Invalid Interpretation Code 0-100 [facility] Work Phone: Lab Report: Basic Metabolic Profile (BMP)on 07-28-2017 Anion gap 7 mmol/L Invalid Interpretation Code 5-15 [facility] Work Phone: BUN/Creatinine Ratio 21.2 RATIO High 10-20 [facility] Work Phone: Calcium 8.6 mg/dL Invalid Interpretation Code 8.5-10.1 [facility] Work Phone: Chloride 106 mmol/L Invalid Interpretation Code 98-107 [facility] Work Phone: CO2 29.0 mmol/L Invalid Interpretation Code 21.0-32.0 [facility] Work Phone: Creatinine 1.32 mg/dL High 0.70-1.30 [facility] Work Phone: eGFR (non-black) 68 mL/min/{1.73_ m2} Invalid Interpretation Code >60 [facility] Work Phone: eGFR (non-black) 56 mL/min/{1.73_ m2} Low >60 [facility] Work Phone: Glucose 83 mg/dL Invalid Interpretation Code 74-106 [facility] Work Phone: Potassium 4.3 mmol/L Invalid Interpretation Code 3.5-5.1 [facility] Work Phone: Sodium 142 mmol/L Invalid Interpretation Code 136-145 [facility] Work Phone: Urea nitrogen 28 mg/dL High 7-18 [facility] Work Phone: Lab Report: Lipid Profileon 06-18-2017 Cholesterol 147 mg/dL Invalid Interpretation Code 200 [facility] Work Phone: HDL Cholesterol 64 mg/dL Invalid Interpretation Code [facility] Work Phone: LDL Cholesterol 72 mg/dL Invalid Interpretation Code 0-130 [facility] Work Phone: Triglyceride 55 mg/dL [...] (ALP) 83 U/L Invalid Interpretation Code 45-117 [facility] Work Phone: Aspartate aminotransferase (AST) 31 U/L Invalid Interpretation Code 15-37 [facility] Work Phone: Bilirubin (direct) 0.15 mg/dL Invalid Interpretation Code 0.00-0.30 [facility] Work Phone: Bilirubin (total) 0.50 mg/dL Invalid Interpretation Code 0.20-1.00 [facility] Work Phone: Globulin 3.3 g/dL Invalid Interpretation Code 2.2-4.2 [facility] Work Phone: Protein 6.8 g/dL Invalid Interpretation Code 6.4-8.2 [facility] Work Phone: Lab Report: Lipid Profileon 12-10-2016 Cholesterol in HDL mass conc 57 mg/dL Invalid Interpretation Code [facility] Work Phone: Cholesterol in LDL mass conc 70 mg/dL Invalid Interpretation Code 0-130 [facility] Work Phone: Cholesterol mass conc 137 mg/dL Invalid Interpretation Code 200 [facility] Work Phone: Lipoprotein.pre-beta mass conc 10 mg/dL Invalid Interpretation Code 5-40 [facility] Work Phone: Triglyceride mass conc 48 mg/dL Invalid Interpretation Code [facility] Work Phone: Lab Report: Liver Profileon 12-10-2016 Albumin mass conc 3.4 g/dL Invalid Interpretation Code 3.4-5.0 [facility] Work Phone: Alkaline phosphatase (ALP) 94 U/L Invalid Interpretation Code 45-117 [facility] Work Phone: ALP enzyme act/vol (Bld) 94 U/L 45-117 [facility] Work Phone: ALT enzyme act/vol 33 U/L Invalid Interpretation Code 12-78 [facility] Work Phone: AST enzyme act/vol 27 U/L Invalid Interpretation Code 15-37 [facility] Work Phone: Bilirubin mass conc 0.60 mg/dL Invalid Interpretation Code 0.20-1.00 [facility] Work Phone: Bilirubin.direct mass conc 0.14 mg/dL Invalid Interpretation Code 0.00-0.30 [facility] Work Phone: Globulin 3.2 g/dL Invalid Interpretation Code 2.3-3.5 [facility] Work Phone: Globulin mass conc (S) 3.2 g/dL 2.3-3.5 [facility] [facility] Work Phone: Protein mass conc 6.6 g/dL Invalid Interpretation Code 6.4-8.2 [employer] Phone: Office Visiton 07-16-2016 Documentation of current medications (procedure) Done Invalid Interpretation Code [facility] Work Phone: Protein mass conc Done [facility] Work Phone: Office Visiton 07-16-2015 General cardiovascular disease 10Y risk [#] Tal.Marcella'Ursula N/A Invalid Interpretation Code [facility] Work Phone: Tobacco smoking status NHIS Tobacco smoking status NHIS Invalid Interpretation Code [facility] Work Phone: Tobacco smoking status NHIS Never smoker [facility] Work Phone: Tobacco use CP Never smoker Invalid Interpretation Code [facility] Work Phone: Office Visiton 07-17-2014 cardiac risk group C Invalid Interpretation Code [facility] Work Phone: Lab Report: Basic Metabolic Profile (BMP)on 05-30-2014 Anion gap 5 mmol/L Invalid Interpretation Code 5-15 [facility] Work Phone: Anion gap molar conc 5 mmol/L 5-[address] [facility] Work Phone: Calcium mass conc 9.2 mg/dL Invalid Interpretation Code 8.5-10.1 [facility] Work Phone: Chloride molar conc 103 mmol/L Invalid Interpretation Code 98-107 [facility] Work Phone: CO2 30.0 mmol/L Invalid Interpretation Code 21.0-32.0 [facility] Work Phone: CO2 ppres (BldV) 30.0 mmol/L 21.0-32.0 [facility] Work Phone: Creatinine mass conc 1.0 mg/dL Invalid Interpretation Code 0.8-1.3 [facility] Work Phone: Glucose 94 mg/dL Invalid Interpretation Code 70-110 [facility] Work Phone: Glucose mass conc 94 mg/dL 70-110 [facility] Work Phone: Potassium molar conc 4.2 mmol/L Invalid Interpretation Code 3.5-5.1 [facility] Work Phone: Sodium molar conc 138 mmol/L Invalid Interpretation Code 136-145 [facility] Work Phone: Urea nitrogen mass conc 20 mg/dL Critically high 7-18 [facility] Work Phone: Urea nitrogen/Creatinine mass ratio 20.0 RATIO Invalid Interpretation Code 10-20 [facility] Work Phone: Lab Report: Liver Profileon 05-30-2014 ALK P 73 U/L 50-136 [facility] Work Phone: GE use only - for [employer] import when terms are not otherwise specified 73 U/L Invalid Interpretation Code 50-136 [facility] Work Phone: Lab Report: CBCon 10-02-2013 Erythrocytes (RBC) 4.78 10*6/uL Normal 4.6-6.[address] [facility] Work Phone: Hematocrit (HCT) 42.3 % Normal 40-54 [facility] Work Phone: Hematocrit Volume Fraction (Bld) 42.3 % Normal 40-54 [facility] Work Phone: Hemoglobin mass conc (Bld) 14.3 g/dL Normal 13.0-16.5 [facility] Work Phone: MCH 29.9 pg Normal 27.0-32.0 [facility] Work Phone: MCH Entitic mass (RBC) 29.9 pg Normal 27.0-32.0 [facility] Work Phone: MCHC 33.8 G/GL Normal 32-36 [facility] Work Phone: MCHC mass conc (RBC) 33.8 G/GL Normal 32-[address] [facility] Work Phone: MCV 88.5 fL Normal 80-94 [facility] Work Phone: MCV Entitic volume (RBC) 88.5 fL Normal 80-94 [facility] Work Phone: Platelet mean volume Entitic volume (Bld) 9.8 fL Normal 6.2-12.0 [facility] Work Phone: Platelets 207 [...] Group Work Phone: Clinical Lists Update: Prelo feed in worker 07-22-2012 Albumin/Globulin mass ratio 1.2 {ratio} Invalid [...] 09:02-0500 Weight 73.03 kg Pardeep Mason MD [facility] Work Phone: 07-21-2011 13:14-0500 Height 177.8 cm MD [facility] Work Phone: Encounters Encounter Date Encounter Type Care Provider Facility Start: 03-21-2018 End: 03-24-2018 ambulatory MATTHIAS LARES [facility] Procedures Date Procedure Procedure Detail Performing [...] [AGGREGATE] PardeepJamari Verma Start: 01-08-2014 End: 01-08-2014 DEEP FAT FRY COOK An Cooper PA-C Work Phone: Start: 01-08-2014 End: 01-08-2014 Follow Up Appt 6 months An mcintosh PA-C Work Phone: Start: 10-12-2013 End: 11-09-2013 *Hepatic Function Panel PardeepJamari Verma Start: 10-12-2013 End: 11-09-2013 Lipid panel [AGGREGATE] PardeepJamari Verma Start: 10-11-2013 End: 10-11-2013 DEEP FAT FRY COOK An Cooper PA-C Work Phone: Start: 10-11-2013 [...] Panel Jamari Rodriguez Start: 09-23-2012 End: 09-23-2012 DEEP FAT FRY COOK Pardeep Mason MD Start: 09-23-2012 End: 09-23-2012 [...] Author Start: 07-22-2017 End: 07-22-2017 Appointment Appointment [facility] Work Phone: Start: 06-11-2017 End: 06-18-2017 *Hepatic Function Panel *Hepatic Function Panel [facility] Work Phone: Start: 06-11-2017 End: 06-18-2017 Lipid panel [AGGREGATE] *Lipid Profile CC PCP [facility] Work Phone: Start: 11-18-2016 End: 12-10-2016 *Hepatic Function Panel *Hepatic Function Panel [facility] Work Phone: Start: 11-18-2016 End: 12-10-2016 Lipid panel [AGGREGATE] *Lipid Profile CC PCP [facility] Work Phone: Start: 07-16-2016 End: 07-16-2016 DEEP FAT FRY COOK DEEP FAT FRY COOK [facility] Work Phone: Start: 07-16-2016 End: 07-16-2016 Follow Up Appt 1 year Follow Up Appt 1 year [facility] Work Phone: Start: 02-28-2016 End: 05-20-2016 *Hepatic Function Panel *Hepatic Function Panel [facility] Work Phone: Start: 02-28-2016 End: 05-20-2016 Lipid panel [AGGREGATE] *Lipid Profile CC PCP [facility] Work Phone: Start: 08-14-2015 End: 08-28-2015 *Hepatic Function Panel *Hepatic Function Panel [facility] Work Phone: Start: 08-14-2015 End: 08-28-2015 Lipid panel [AGGREGATE] *Lipid Profile CC PCP [facility] Work Phone: Start: 07-16-2015 End: 07-16-2015 DEEP FAT FRY COOK DEEP FAT FRY COOK [facility] Work Phone: Start: 07-16-2015 End: 07-16-2015 Follow Up Appt 1 year Follow Up Appt 1 year [facility] Work Phone: Start: 12-03-2014 End: 02-13-2015 *Hepatic Function Panel *Hepatic Function Panel [facility] Work Phone: Start: 12-03-2014 End: 02-13-2015 Lipid panel [AGGREGATE] *Lipid Profile CC PCP [facility] Work Phone: Start: 07-17-2014 End: 07-17-2014 DEEP FAT FRY COOK DEEP FAT FRY COOK [facility] Work Phone: Start: 07-17-2014 End: 07-17-2014 Follow Up Appt 1 year Follow Up Appt 1 year [facility] Work Phone: Start: 04-14-2014 End: 06-01-2014 *Hepatic Function Panel *Hepatic Function Panel [facility] Work Phone: Start: 04-14-2014 End: 06-01-2014 Lipid panel [AGGREGATE] *Lipid Profile CC PCP [facility] Work Phone: Start: 01-08-2014 End: 01-08-2014 DEEP FAT FRY COOK DEEP FAT FRY COOK [facility] Work Phone: Start: 01-08-2014 End: 01-08-2014 Follow Up Appt 6 months Follow Up Appt 6 months [facility] Work Phone: Start: 10-12-2013 End: 11-09-2013 *Hepatic Function Panel *Hepatic Function Panel [facility] Work Phone: Start: 10-12-2013 End: 11-09-2013 Lipid panel [AGGREGATE] *Lipid Profile CC PCP [facility] Work Phone: Start: 10-11-2013 End: 10-11-2013 DEEP FAT FRY COOK DEEP FAT FRY COOK [facility] Work Phone: Start: 10-11-2013 End: 10-11-2013 Follow Up Appt 3 months Follow Up Appt 3 months [employer] Work Phone: Start: 10-02-2013 End: 10-02-2013 *BMP *BMP [facility] Work Phone: Start: 10-02-2013 End: 10-02-2013 CBC W Auto Differential panel - Blood *CBC without Diff [facility] Work Phone: Start: 10-02-2013 End: 10-06-2013 Chest x-ray X-Ray, Chest, PA & Lateral [facility] Work Phone: Start: 10-02-2013 End: 10-02-2013 Coagulation factor induced.INR assay in platelet poor plasma *PT/INR [facility] Work Phone: Start: 10-02-2013 End: 10-06-2013 Electrocardiogram, complete EKG (In office) [facility] Work Phone: Start: 10-02-2013 End: 10-03-2013 Left Heart Cath Left Heart Cath [facility] Work Phone: Start: 09-26-2013 End: 01-08-2014 Follow Up Appt 1 year Follow Up Appt 1 year [employer] Phone: Start: 09-26-2013 End: 10-02-2013 Stress Echocardiogram (treadmill) Stress Echocardiogram (treadmill) [facility] Work Phone: Start: 04-14-2013 End: 04-26-2013 *Hepatic Function Panel *Hepatic Function Panel [facility] [facility] Work Phone: Start: 04-14-2013 End: 04-26-2013 Lipid panel [AGGREGATE] *Lipid Profile CC PCP [facility] Work Phone: Start: 10-12-2012 End: 11-03-2012 *Hepatic Function Panel *Hepatic Function Panel [facility] Work Phone: Start: 10-12-2012 End: 11-03-2012 Lipid panel [AGGREGATE] *Lipid Profile [facility] Work Phone: Start: 09-23-2012 End: 10-06-2013 *Hepatic Function Panel *Hepatic Function Panel [facility] Work Phone: Start: 09-23-2012 End: 09-23-2012 DEEP FAT FRY COOK DEEP FAT FRY COOK [facility] Work Phone: Start: 09-23-2012 End: 09-23-2012 Follow Up Appt 1 year Follow Up Appt 1 year [facility] Work Phone: Start: 09-23-2012 End: 10-06-2013 Lipid panel [AGGREGATE] *Lipid Profile [facility] Work Phone: Start: 04-14-2012 End: 04-19-2012 *Hepatic Function Panel *Hepatic Function Panel [facility] Work Phone: Start: 04-14-2012 End: 04-19-2012 Lipid panel [AGGREGATE] *Lipid Profile [facility] Work Phone: Start: 10-26-2011 End: 11-11-2011 *Hepatic Function Panel *Hepatic Function Panel [facility] Work Phone: Start: 10-26-2011 End: 11-11-2011 Lipid panel [AGGREGATE] *Lipid Profile [facility] Work Phone: Start: 07-21-2011 End: [...] section and content) DATE CREATED AUTHOR 11/14/2023 [facility] FOR RECORDS PERTAINING TO PATIENTS WHO [...] BE BASED ON THE PRIMARY CLINICAL RECORDS. [facility] [employer] [facility]. provides no warranty or guarantee of the accuracy or completeness of information in this document.
[2024-04-07 22:26] VITALS: BP 131/85; PULSE 53; RESP 16; TEMP 36.7; O2SAT 93
== END 2024-04-07 22:27 | disposition home or self-care (01) ==
PROVIDERS: Emergency Provider Emergency Medicine; PCP Family Medicine; Visit Provider Emergency Medicine
DX: S51.811A Laceration without foreign body of right forearm, initial encounter (principal); I25.10 Atherosclerotic heart disease of native coronary artery without angina pectoris; W01.0XXA Fall on same level from slipping, tripping and stumbling without subsequent striking against object, initial encounter; E78.5 Hyperlipidemia, unspecified; Z79.899 Other long term (current) drug therapy; Z95.0 Presence of cardiac pacemaker; Z98.49 Cataract extraction status, unspecified eye
CPT/HCPCS: 12002; 99283

== ENCOUNTER → 2024-04-07 | Outpatient (CLI) | payer MEDICARE, SELFPAY ==
--- NOTE | 2024-04-07 | LES_PTH ---
PATHOLOGY RESULTS PATIENT: FENG JONES LOC: [facility] U#:[id number] AGE/SX: 83/M ROOM: RE04/07/[address]: Dr. Manuel Simpson MD : [id number] BED: DIS: 04/07/2024 SPEC #: [id number] RECD: 04/07/24 14:49 STATUS: VAZQUEZ RECalista #: [id number] ROMI: 04/07/24 00:[address]: Manuel Simpson DEPT: SURGICAL PATHOLOGY RECD BY: Bulmaro Rodgers ENTERED: 04/10/24 09:16 SP TYPE: Lesion Tissues: Skin of back, NOS Procedures: Surgery Specimen Level IV HEADER OPERATION: Excision back PRE-OP DIAGNOSIS: Scc TISSUE SUBMITTED: Back excision MICROSCOPIC DIAGNOSIS Back lesion, excisional biopsy: Squamous cell carcinoma in situ, completely excised in the planes of section examined. See maritza. 04/11/2024 COMMENT Lesion also shows overlying cutaneous horn. Clinical correlation and appropriate follow up are necessary. MICROSCOPIC DESCRIPTION Slides are reviewed. GROSS DESCRIPTION Received in fixative is one container labeled with the patient's name and designated Back. The specimen consists of a piece of russell-white skin measuring 0.6 x 0.3 x 0.4cm. The entire specimen is submitted in one cassette. 04/10/2024 TC:0 CPT:36291
--- OUTSIDE RECORDS SUMMARY | 2024-04-07 16:32 | XMS RPT_ITS | CCD ---
Author Organization [facility] Care Team Providers Care Cyber Intel Planner Name Role Phone [facility] Nurse Unavailable Unavailable Kayce Claudio Unavailable Unavailable Tina SOTO, [place] Garcia Unavailable Unavailable MD Isabella, Pardeep Remy Unavailable MATTHIAS LARES Attending Unavailable ROSANNA ARAUJO Referring Unavailabl e Medications Completed/Discontinued Medications Medication Drug Class(es) Dates Sig (Normalized) Sig (Original) aspirin 81 mg oral tablet (8 sources) Platelet Aggregation Inhibitor, Nonsteroidal Anti-inflammatory Drug Start: 07-21-2011 take 1 tablet by mouth once daily ASPIRIN 81 MG TABS One tablet by mouth daily ASPIRIN [id number] Pardeep Mason MD Start: 07-21-2011 take 1 tablet by kirt th once daily ASPIRIN 81 MG TABS One tablet by mouth daily ASPIRIN [id number] Pardeep Mason MD Start: 07-21-2011 take 1 tablet by kirt th once daily ASPIRIN EC 81 MG TBEC One tablet by mouth daily ASPIRIN [id number] Sisi Renae RN dutasteride 0.5 mg oral capsule (8 sources) 5-alpha Reductase Inhibitor Start: 09-23-2012 End: 07-16-2016 take 1 tablet by mouth once daily AVODART 0.5 MG CAPS One tablet by mouth daily DUTASTERIDE [id number] Pardeep Mason MD famotidine 10 mg chewable tablet (8 sources) Histamine-2 Receptor Antagonist Start: 07-17-2011 take 2 tablets by mouth once daily as needed PEPCID AC 10 MG CHEW Two tablets by mouth daily as needed FAMOTIDINE [id number] Pardeep Mason MD Start: 07-17-2011 take [address] [facility] once daily as needed PEPCID AC 10 MG CHEW Two tablets by mouth daily as needed FAMOTIDINE [id number] Pardeep Mason MD finasteride 5 mg oral tablet (4 sources) 5-alpha Reductase Inhibitor Start: 07-16-2016 take 1 tablet by mouth once daily FINASTERIDE 5 MG TABS One tablet by mouth daily FINASTERIDE [id number] Pardeep Mason MD lisinopril 2.5 mg oral tablet (12 sources) Angiotensin Converting Enzyme Inhibitor Start: 10-11-2013 End: 07-24-2015 take 1 tablet by mouth once daily LISINOPRIL 2.5 MG TABS One tablet by mouth daily LISINOPRIL [id number] An Cooper PA-C melatonin 10 mg oral capsule (4 sources) Start: 07-16-2016 take 2 tablets by mouth at bedtime as needed MELATONIN 10 MG CAPS Two tablets by mouth at bedtime as needed MELATONIN [id number] Pardeep Mason MD MULTIPLE VITAMIN (3 sources) Start: 07-17-2011 take 1 tablet by mouth once daily MULTIVITAMINS TABS One tablet by mouth daily MULTIPLE VITAMIN [id number] Sheyla Paz MULTIPLE VITAMIN (1 source) Start: 07-17-2011 take 1 tablet by mouth once daily MULTIVITAMINS TABS One tablet by mouth daily MULTIPLE VITAMIN [id number] Sheyla Paz rosuvastatin calcium 10 mg oral tablet (20 sources) HMG-CoA Reductase Inhibitor Start: 08-03-2011 take 1 tablet by mouth at bedtime CRESTOR 10 MG TABS One tablet by mouth at bedtime. ROSUVASTATIN CALCIUM [id number] An Cooper PA-C Start: 07-22-2011 take [address] [facility] once daily CRESTOR 5 MG TABS Two tablest by mouth daily ROSUVASTATIN CALCIUM [id number] Melanie Nieto RN Start: 07-17-[address] [facility] once daily CRESTOR 5 MG TABS One tablet by mouth daily ROSUVASTATIN CALCIUM [id number] Pardeep Mason MD saw palmetto extract 1000 mg oral capsule (4 sources) Start: 07-17-2011 take 1 tablet by mouth once daily SAW PALMETTO 1000 MG CAPS One tablet by mouth daily SAW ZAIDA (SERENOA REPENS) [id number] Sheyla Kauffman Brandi Start: 07-17-2011 take 1 tablet by kirt th once daily SAW PALMETTO 1000 MG CAPS One tablet by mouth daily SAW PALMETTO (SERENOA REPENS) [id number] Sheyla Kauffman Paz tamsulosin hydrochloride 0.4 mg oral capsule (8 sources) alpha-Adrenergic Ambrosio Start: 09-23-2012 End: 07-16-2016 take 1 tablet by mouth once daily FLOMAX 0.4 MG CAPS One tablet by mouth daily TAMSULOSIN HCL [id number] [place] Wilder RN valsartan 80 mg oral tablet (8 sources) Angiotensin 2 Receptor Ambrosio Start: 07-17-2011 End: 07-21-2011 take 1 tablet by mouth once daily DIOVAN 80 MG TABS One tablet by mouth daily VALSARTAN [id number] Sheyla M Brandi Problems Active Problems Problem Classification Problem Date Documented Date Episodic/Chronic Cardiac dysrhythmias (4 sources) Sinus bradycardia; Translations: [Bradycardia, unspecified] Onset: 07-16-2015 07-16-2015 Chronic Coronary atherosclerosis and other heart disease (8 sources) Atherosclerotic heart disease of [place] coronary artery without angina pectoris; Translations: [Coronary arteriosclerosis] Onset: 07-21-2011 07-16-2015 Chronic Disorders of lipid metabolism (4 sources) Hyperlipidemia; Translations: [Hyperlipidemia, unspecified] Onset: 07-22-2011 07-22-2011 Chronic Unclassified (1 source) Long-term drug therapy; Translations: [Other exterminator (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 therapy] Onset: 07-17-2011 07-17-2011 Past or Other Problems Problem Classification Problem Date Documented Date Episodic/Chronic Other aftercare (3 sources) Other exterminator (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 therapy; Translations: [Other long-term (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 therapy] Onset: 07-17-2011 07-17-2011 Episodic [...] Name Value Interpretation Reference Range Facil ity Lab Report: BNP,B-Type NATRI URETIC PEPTIDEon 07-28-2017 BNP 54.2 pg/mL Invalid Interpretation Code 0-100 [facility] Work Phone: Lab Report: Basic Metabolic Profile (BMP)on 07-28-2017 Anion gap 7 mmol/L Invalid Interpretation Code 5-15 [facility] Work Phone: BUN/Creatinine Ratio 21.2 RATIO High 10-20 [facility] Work Phone: Calcium 8.6 mg/dL Invalid Interpretation Code 8.5-10.1 [facility] Work Phone: Chloride 106 mmol/L Invalid Interpretation Code 98-107 [facility] Work Phone: CO2 29.0 mmol/L Invalid Interpretation Code 21.0-32.0 [facility] Work Phone: Creatinine 1.32 mg/dL High 0.70-1.30 [facility] Work Phone: eGFR (non-black) 68 mL/min/{1.73_ m2} Invalid Interpretation Code >60 [facility] Work Phone: eGFR (non-black) 56 mL/min/{1.73_ m2} Low >60 [facility] Work Phone: Glucose 83 mg/dL Invalid Interpretation Code 74-106 [facility] Work Phone: Potassium 4.3 mmol/L Invalid Interpretation Code 3.5-5.1 [facility] Work Phone: Sodium 142 mmol/L Invalid Interpretation Code 136-145 [facility] Work Phone: Urea nitrogen 28 mg/dL High 7-18 [facility] Work Phone: Lab Report: Lipid Profileon 06-18-2017 Cholesterol 147 mg/dL Invalid Interpretation Code 200 [facility] Work Phone: HDL Cholesterol 64 mg/dL Invalid Interpretation Code [facility] Work Phone: LDL Cholesterol 72 mg/dL Invalid Interpretation Code 0-130 [facility] Work Phone: Triglyceride 55 mg/dL Invalid Interpretation Code [facility] Work Phone: very low density lipoproteins 11 mg/dL Invalid Interpretation Code 5-40 [facility] Work Phone: Lab Report: Liver Profileon 06-18-2017 Alanine aminotransferase (ALT) 34 U/L Invalid Interpretation Code 12-78 [facility] Work Phone: Albumin 3.5 g/dL Invalid Interpretation Code 3.4-5.0 [facility] Work Phone: Alkaline phosphatase (ALP) 83 U/L Invalid Interpretation Code 45-117 [facility] Work Phone: Aspartate aminotransferase (AST) 31 U/L Invalid Interpretation Code 15-37 [facility] Work Phone: Bilirubin (direct) 0.15 mg/dL Invalid Interpretation Code 0.00-0.30 [facility] Work Phone: Bilirubin (total) 0.50 mg/dL Invalid Interpretation Code 0.20-1.00 [facility] Work Phone: Globulin 3.3 g/dL Invalid Interpretation Code 2.2-4.2 [facility] Work Phone: Protein 6.8 g/dL Invalid Interpretation Code 6.4-8.2 [facility] Work Phone: Lab Report: Lipid Profileon 12-10-2016 Cholesterol in HDL mass conc 57 mg/dL Invalid Interpretation Code [facility] Work Phone: Cholesterol in LDL mass conc 70 mg/dL Invalid Interpretation Code 0-130 [facility] Work Phone: Cholesterol mass conc 137 mg/dL Invalid Interpretation Code 200 [facility] Work Phone: Lipoprotein.pre-beta mass conc 10 mg/dL Invalid Interpretation Code 5-40 [facility] Work Phone: Triglyceride mass conc 48 mg/dL Invalid Interpretation Code [facility] Work Phone: Lab Report: Liver Profileon 12-10-2016 Albumin mass conc 3.4 g/dL Invalid Interpretation Code 3.4-5.0 [facility] Work Phone: Alkaline phosphatase (ALP) 94 U/L Invalid Interpretation Code 45-117 [facility] Work Phone: ALP enzyme act/vol (Bld) 94 U/L 45-117 [facility] Work Phone: ALT enzyme act/vol 33 U/L Invalid Interpretation Code 12-78 [facility] Work Phone: AST enzyme act/vol 27 U/L Invalid Interpretation Code 15-37 [facility] Work Phone: Bilirubin mass conc 0.60 mg/dL Invalid Interpretation Code 0.20-1.00 [facility] Work Phone: Bilirubin.direct mass conc 0.14 mg/dL Invalid Interpretation Code 0.00-0.30 [facility] Work Phone: Globulin 3.2 g/dL Invalid Interpretation Code 2.3-3.5 [facility] Work Phone: Globulin mass conc (S) 3.2 g/dL 2.3-3.5 [facility] Work Phone: Protein mass conc 6.6 g/dL Invalid Interpretation Code 6.4-8.2 [facility] Phone: Office Visiton 07-16-2016 Documentation of current medications (procedure) Done Invalid Interpretation Code [facility] Work Phone: Protein mass conc Done [facility] Work Phone: Office Visiton 07-16-2015 General cardiovascular disease 10Y risk [#] Tal.Marcella'Ursula N/A Invalid Interpretation Code [facility] Work Phone: Tobacco smoking status NHIS Tobacco smoking status NHIS Invalid Interpretation Code [facility] Work Phone: Tobacco smoking status NHIS Never smoker [facility] Work Phone: Tobacco use CP Never smoker Invalid Interpretation Code [facility] Work Phone: Office Visiton 07-17-2014 cardiac risk group C Invalid Interpretation Code [facility] Work Phone: Lab Report: Basic Metabolic Profile (BMP)on 05-30-2014 Anion gap 5 mmol/L Invalid Interpretation Code 5-15 [facility] Work Phone: Anion gap molar conc 5 mmol/L 5-[address] [facility] Work Phone: Calcium mass conc 9.2 mg/dL Invalid Interpretation Code 8.5-10.1 [facility] Work Phone: Chloride molar conc 103 mmol/L Invalid Interpretation Code 98-107 [facility] Work Phone: CO2 30.0 mmol/L Invalid Interpretation Code 21.0-32.0 [facility] Work Phone: CO2 ppres (BldV) 30.0 mmol/L 21.0-32.0 [facility] Work Phone: Creatinine mass conc 1.0 mg/dL Invalid Interpretation Code 0.8-1.3 [facility] Work Phone: Glucose 94 mg/dL Invalid Interpretation Code 70-110 [facility] Work Phone: Glucose mass conc 94 mg/dL 70-110 [facility] Work Phone: Potassium molar conc 4.2 mmol/L Invalid Interpretation Code 3.5-5.1 [facility] Work Phone: Sodium molar conc 138 mmol/L Invalid Interpretation Code 136-145 [facility] Work Phone: Urea nitrogen mass conc 20 mg/dL Critically high 7-18 [facility] Work Phone: Urea nitrogen/Creatinine mass ratio 20.0 RATIO Invalid Interpretation Code 10-20 [facility] Work Phone: Lab Report: Liver Profileon 05-30-2014 ALK P 73 U/L 50-136 [facility] Work Phone: GE use only - for Link[employer]ic import when terms are not otherwise specified 73 U/L Invalid Interpretation Code 50-136 [facility] Work Phone: Lab Report: CBCon 10-02-2013 Erythrocytes (RBC) 4.78 10*6/uL Normal 4.6-6.[address] [facility] Work Phone: Hematocrit (HCT) 42.3 % Normal 40-54 [facility] Work Phone: Hematocrit Volume Fraction (Bld) 42.3 % Normal 40-54 [facility] Work Phone: Hemoglobin mass conc (Bld) 14.3 g/dL Normal 13.0-16.5 [facility] Work Phone: MCH 29.9 pg Normal 27.0-32.0 [facility] Work Phone: MCH Entitic mass (RBC) 29.9 pg Normal 27.0-32.0 [facility] Work Phone: MCHC 33.8 G/GL Normal 32-36 [facility] Work Phone: MCHC mass conc (RBC) 33.8 G/GL Normal 32-[address] [facility] Work Phone: MCV 88.5 fL Normal 80-94 [facility] Work Phone: MCV Entitic volume (RBC) 88.5 fL Normal 80-94 [facility] Work Phone: Platelet mean volume Entitic volume (Bld) 9.8 fL Normal 6.2-12.0 [facility] Work Phone: Platelets 207 10*3/mm3 Normal 150-450 [facility] Work Phone: Platelets #/vol (Bld) 207 10*3/mm3 Normal 150-450 [facility] Work Phone: PMV by Rafael 9.8 fL Normal 6.2-12.0 [facility] Work Phone: RBC #/vol (Bld) 4.78 10*6/uL Normal 4.6-6.2 [facility] Work Phone: WBC #/vol (Bld) 5.3 10*3/uL Normal 4.4-11.0 [facility] Work Phone: WBC (Leukocytes) 5.3 10*3/uL Normal 4.4-11.0 [facility] Work Phone: Lab Report: PTon 10-02-2013 INR Coag RelTime (PPP) 1.0 {INR} Normal [facility] Work Phone: INR in blood by coagulation 1.0 {INR} Normal [facility] Work Phone: prothrombin time, actual/normal, ratio 12.6 SECONDS Normal 11.9-14.4 [facility] Work Phone: PTP 12.6 SECONDS Normal 11.9-14.4 [facility] Work Phone: Clinical Lists Update: Prelo clinical biostatistician 07-22-2012 Albumin/Globulin mass ratio 1.2 {ratio} Invalid Interpretation Code [facility] Work Phone: Globulin 3.0 g/dL Invalid Interpretation Code [facility] Work Phone: Globulin mass conc (S) 3.0 g/dL [facility] Work Phone: Lab Report: PSAon 07-21-2011 prostate specific antigen (PSA) screening 2.4 ng/mL Normal 0.0-4.0 [facility] Work Phone: Protein mass conc 2.4 ng/mL Normal 0.0-4.0 [facility] Work Phone: Vital Signs Date Time Vital Sign Value [...] Phone: 07-16-2016 09:02-0500 Respiratory Rate 20 /min Pardeep Mason MD [facility] Work Phone: 07-16-2016 09:02-0500 Weight 73.03 kg Pardeep Mason MD [facility] Work Phone: 07-21-2011 13:14-0500 Height 177.8 cm MD [facility] Work Phone: Encounters Encounter Date Encounter Type Care Provider Facility Start: 03-21-2018 End: 03-24-2018 ambulatory MATTHIAS LARES [facility] Procedures Date Procedure Procedure Detail Performing Clinician [...] [AGGREGATE] Jamari Rodriguez Start: 07-17-2014 End: 07-17-2014 DORIS Mason MD Start: 07-17-2014 End: 07-18-2014 Documentation of current medications Pardeep Mason MD Start: 07-17-2014 End: 07-17-2014 Follow Up Appt 1 year Pardeep Mason MD Start: 04-14-2014 End: 06-01-2014 *Hepatic Function Panel Jamari Rodriguez Start: 04-14-2014 End: 06-01-2014 Lipid panel [AGGREGATE] PardeepJamari Verma Start: 01-08-2014 End: 01-08-2014 MANAGER PURCHASING An Cooper PA-C Work Phone: Start: 01-08-2014 End: 01-08-2014 Follow Up Appt 6 months An mcintosh PA-C Work Phone: Start: 10-12-2013 End: 11-09-2013 *Hepatic Function Panel PardeepJamari Verma Start: 10-12-2013 End: 11-09-2013 Lipid panel [AGGREGATE] PardeepJamari Verma Start: 10-11-2013 End: 10-11-2013 MANAGER PURCHASING An Cooper PA-C Work Phone: Start: 10-11-2013 End: [...] Panel Jamari Rodriguez Start: 09-23-2012 End: 09-23-2012 MANAGER PURCHASING Pardeep Mason MD Start: 09-23-2012 End: 09-23-2012 [...] Author Start: 07-22-2017 End: 07-22-2017 Appointment Appointment [facility] Work Phone: Start: 06-11-2017 End: 06-18-2017 *Hepatic Function Panel *Hepatic Function Panel [facility] Work Phone: Start: 06-11-2017 End: 06-18-2017 Lipid panel [AGGREGATE] *Lipid Profile CC PCP [facility] Work Phone: Start: 11-18-2016 End: 12-10-2016 *Hepatic Function Panel *Hepatic Function Panel [facility] Work Phone: Start: 11-18-2016 End: 12-10-2016 Lipid panel [AGGREGATE] *Lipid Profile CC PCP [facility] Work Phone: Start: 07-16-2016 End: 07-16-2016 MANAGER PURCHASING MANAGER PURCHASING [facility] Work Phone: Start: 07-16-2016 End: 07-16-2016 Follow Up Appt 1 year Follow Up Appt 1 year [facility] Work Phone: Start: 02-28-2016 End: 05-20-2016 *Hepatic Function Panel *Hepatic Function Panel [facility] Work Phone: Start: 02-28-2016 End: 05-20-2016 Lipid panel [AGGREGATE] *Lipid Profile CC PCP [facility] Work Phone: Start: 08-14-2015 End: 08-28-2015 *Hepatic Function Panel *Hepatic Function Panel [facility] Work Phone: Start: 08-14-2015 End: 08-28-2015 Lipid panel [AGGREGATE] *Lipid Profile CC PCP [facility] Work Phone: Start: 07-16-2015 End: 07-16-2015 MANAGER PURCHASING MANAGER PURCHASING [facility] Work Phone: Start: 07-16-2015 End: 07-16-2015 Follow Up Appt 1 year Follow Up Appt 1 year [facility] Work Phone: Start: 12-03-2014 End: 02-13-2015 *Hepatic Function Panel *Hepatic Function Panel [facility] Work Phone: Start: 12-03-2014 End: 02-13-2015 Lipid panel [AGGREGATE] *Lipid Profile CC PCP [facility] Work Phone: Start: 07-17-2014 End: 07-17-2014 MANAGER PURCHASING MANAGER PURCHASING [facility] Work Phone: Start: 07-17-2014 End: 07-17-2014 Follow Up Appt 1 year Follow Up Appt 1 year [facility] Work Phone: Start: 04-14-2014 End: 06-01-2014 *Hepatic Function Panel *Hepatic Function Panel [facility] Work Phone: Start: 04-14-2014 End: 06-01-2014 Lipid panel [AGGREGATE] *Lipid Profile CC PCP [facility] Work Phone: Start: 01-08-2014 End: 01-08-2014 MANAGER PURCHASING MANAGER PURCHASING [facility] Work Phone: Start: 01-08-2014 End: 01-08-2014 Follow Up Appt 6 months Follow Up Appt 6 months [facility] Work Phone: Start: 10-12-2013 End: 11-09-2013 *Hepatic Function Panel *Hepatic Function Panel [facility] Work Phone: Start: 10-12-2013 End: 11-09-2013 Lipid panel [AGGREGATE] *Lipid Profile CC PCP [facility] Work Phone: Start: 10-11-2013 End: 10-11-2013 MANAGER PURCHASING MANAGER PURCHASING [facility] Work Phone: Start: 10-11-2013 End: 10-11-2013 Follow Up Appt 3 months Follow Up Appt 3 months [facility] Work Phone: Start: 10-02-2013 End: 10-02-2013 *BMP *BMP [facility] Work Phone: Start: 10-02-2013 End: 10-02-2013 CBC W Auto Differential panel - Blood *CBC without Diff [facility] Work Phone: Start: 10-02-2013 End: 10-06-2013 Chest x-ray X-Ray, Chest, PA & Lateral [facility] Work Phone: Start: 10-02-2013 End: 10-02-2013 Coagulation factor induced.INR assay in platelet poor plasma *PT/INR [facility] Work Phone: Start: 10-02-2013 End: 10-06-2013 Electrocardiogram, complete EKG (In office) [facility] Work Phone: Start: 10-02-2013 End: 10-03-2013 Left Heart Cath Left Heart Cath [facility] Work Phone: Start: 09-26-2013 End: 01-08-2014 Follow Up Appt 1 year Follow Up Appt 1 year [facility] Phone: Start: 09-26-2013 End: 10-02-2013 Stress Echocardiogram (treadmill) Stress Echocardiogram (treadmill) [facility] Work Phone: Start: 04-14-2013 End: 04-26-2013 *Hepatic Function Panel *Hepatic Function Panel [facility] Work Phone: Start: 04-14-2013 End: 04-26-2013 Lipid panel [AGGREGATE] *Lipid Profile CC PCP [facility] Work Phone: Start: 10-12-2012 End: 11-03-2012 *Hepatic Function Panel *Hepatic Function Panel [facility] Work Phone: Start: 10-12-2012 End: 11-03-2012 Lipid panel [AGGREGATE] *Lipid Profile [facility] Work Phone: Start: 09-23-2012 End: 10-06-2013 *Hepatic Function Panel *Hepatic Function Panel [facility] Work Phone: Start: 09-23-2012 End: 09-23-2012 MANAGER PURCHASING MANAGER PURCHASING [facility] Work Phone: Start: 09-23-2012 End: 09-23-2012 Follow Up Appt 1 year Follow Up Appt 1 year [facility] Work Phone: Start: 09-23-2012 End: 10-06-2013 Lipid panel [AGGREGATE] *Lipid Profile [facility] Work Phone: Start: 04-14-2012 End: 04-19-2012 *Hepatic Function Panel *Hepatic Function Panel [facility] Work Phone: Start: 04-14-2012 End: 04-19-2012 Lipid panel [AGGREGATE] *Lipid Profile [facility] Work Phone: Start: 10-26-2011 End: 11-11-2011 *Hepatic Function Panel *Hepatic Function Panel [facility] Work Phone: Start: 10-26-2011 End: 11-11-2011 Lipid panel [AGGREGATE] *Lipid Profile [facility] Work Phone: Start: 07-21-2011 End: 07-21-2011 Follow Up Appt 1 year Follow Up Appt 1 year [facility] Work Phone: Patient Education [facility] Work Phone: Summary Purpose Family History No Family History Records Found Advance Directives No Advanced Directives Records Found Additional Source Comments (unrecognized sect ion and content) No Status Records Found INFORMATION SOURCE (unrecogn ized section and content) DATE CREATED AUTHOR 11/14/2023 [facility] FOR RECORDS PERTAINING TO PATIENTS WHO ARE [...] BE BASED ON THE PRIMARY CLINICAL RECORDS. [facility]. provides no warranty or guarantee of the accuracy or completeness of information in this document.
== END | disposition home or self-care (01) ==
LOC: LABSPEC 15:01
PROVIDERS: PCP Family Medicine; Referring Provider Family Medicine; Visit Provider Family Medicine
DX: D04.5 Carcinoma in situ of skin of trunk (principal)
CPT/HCPCS: 88305

== ENCOUNTER → 2024-05-17 | Outpatient (CLI) | payer MEDICARE, SELFPAY ==
--- NOTE | 2024-05-17 | IMM_PTH ---
PATIENT: FENG JONES LOC: [facility] U#:[id number] AGE/SX: 83/M ROOM: RE05/17/[address]: Dr. Manuel Simpson MD : 1940 BED: DIS: 05/17/2024 SPEC #: [id number] RECD: 05/19/24 11:07 STATUS: VAZQUEZ REQ #: [id number] ROMI: 05/17/24 00:[address]: Manuel Simpson DEPT: IMMUNOHISTOCHEMISTRY RECD BY: Farhat Iyer Tissues: Skin of back, NOS Procedures: Avery Ret (add) CK5-6 (add) KI-67 (add) P53 (add) Vimentin (add) Pankeratin (initial) MELAN-A (add) P40 (add) CD68 (ADD) S-100 (add) PHYSICIAN & INSTITUTION [place] [id number] SPECIMEN INFORMATION: Tissue Source: Left back Clinical Info: Squamous cell carcinoma Specimen Number: [id number] CPT code: 79484,33090s8 METHODOLOGY: Deparaffinized sections of prefer/formalin-fixed tissue or PAP/DQ stained slides are incubated with monoclonal/polyclonal antibodies/oligonucleotide probes. Localization is made via biotin free immunoperoxidase method. Appropriate controls are performed and reacted as expected. Results on target cell population are indicated in the following table: RESULTS: ANTIBODY / CLONE RESULT AE1-3 (AE1/AE3/PCK26) positive Vimentin (V9) negative CD68 (KP-1) positive, focal Melan A (A103) positive, focal S-100 (4C4.9) negative, focal CALRET (polyclonal) negative CK5-6 (D5 & 1684) positive P40 (BC28) positive P53 (DO-7) positive, missense type Ki-67 (30-9) positive, low These tests were developed and their performance characteristics determined by [facility]. They may not have been cleared or approved by the U.S. Food and Drug Administration. The FDA has determined that such clearance or approval is not necessary. The above immunohistochemical/dualISH markers are ordered and reviewed by the Pathologist. INTERPRETATION: Left arm, excision: Actinic keratosis with focal moderate atypia. Consistent with benign focal mild melanocytic hyperplasia. AM. 05/22/2024
--- NOTE | 2024-05-17 16:11 | LES_PTH ---
PATIENT: FENG JONES LOC: [facility] U#:[id number] AGE/SX: 83/M ROOM: RE05/17/[address]: Dr. Manuel Simpson MD : 1940 BED: DIS: 05/17/2024 SPEC #: [id number] RECD: 05/17/24 17:52 STATUS: VAZQUEZ [place]O #: [id number] ROMI: 05/17/24 16:[address]: Manuel Simpson DEPT: SURGICAL PATHOLOGY RECD BY: Bulmaro Rodgers Tissues: Skin of back, NOS Procedures: Surgery Specimen Level IV HEADER OPERATION: Excision back PRE-OP DIAGNOSIS: Squamous cell carcinoma TISSUE SUBMITTED: Neg- for margins MICROSCOPIC DIAGNOSIS Skin lesion of back, excision: Actinic change with focal moderate atypia. Focal benign mild melanocytic hyperplasia. Extensive solar elastosis. Focal benign histiocytic proliferation suggestive of previous procedure. See comment. AM 05/19/2024 COMMENT Immunohistochemistry ([id number]) supports the above diagnosis. Clinical correlation is suggested. MICROSCOPIC DESCRIPTION Slides are reviewed. GROSS DESCRIPTION Received in fixative is one container labeled with the patient's name and designated Left back. The specimen consists of an ellipse of light russell excised skin measuring 1.5 x 1.0 x 0.8cm. The specimen is inked, serially sectioned and totally submitted in one cassette. [place] 05/18/2024 TC:? CPT:46451
== END | disposition home or self-care (01) ==
PROVIDERS: PCP Family Medicine; Visit Provider Family Medicine
DX: D22.5 Melanocytic nevi of trunk (principal); L57.8 Other skin changes due to chronic exposure to nonionizing radiation
CPT/HCPCS: 88305; 88341; 88342

== ENCOUNTER → 2024-10-24 | Outpatient (CLI) | payer MEDICARE, SELFPAY ==
--- NOTE | 2024-10-24 10:26 | CT_ITS ---
PROCEDURE: ABDOMEN/PELVIS WITHOUT CONT 10/24/2024 REASON FOR EXAM: ABD PAIN Right flank pain. History of kidney stones. TECHNIQUE: Abdomen and pelvis CT without intravenous contrast. Noncontrast technique limits evaluation of the abdominal and pelvic viscera. Coronal and Sagittal reconstruction series were provided. One or more dose reduction techniques were used (e.g., Automated exposure control, adjustment of the mA and/or kV according to patient size, use of iterative reconstruction technique). PATIENT PREPARATION: Per protocol ORAL CONTRAST TYPE: None. CT DL volume: 6.72 mGy. DLP: 362.51 COMPARISON: Comparison is made with prior study dated December 23, 2021. FINDINGS: Lung bases: Mild dependent atelectasis dual-chamber pacemaker is seen in the heart. Liver: Stable 4.6 mm cyst in the lateral aspect of the right lobe of the liver in its midportion. Gallbladder: Several calcified gallstones. Spleen: Normal size. Stable 2.3 cm 2 cm calcified mesenteric lymph node in the left upper quadrant. Pancreas: Normal size. No surrounding inflammation. Adrenals: Unremarkable Kidneys: Moderate-sized right hydronephrosis and hydroureter due to a 3 mm calculus in the midportion of the right ureter. Nonobstructive calculus in the upper pole calyx of the right kidney. Nonobstructive calculus in the lower pole of the left kidney measuring 1.1 cm. Nonspecific bilateral perinephric stranding. Bladder: Mild degree of diffuse bladder wall thickening. Prostatic enlargement with indentation of the bladder base. The prostate measures 4.4 cm by 4.6 cm. Bowel: Colonic diverticulosis without diverticulitis.. Moderate-sized hiatal hernia. Appendix: The appendix is not identified. There is no inflammatory process identified in the right lower quadrant to suggest appendicitis. Lymph nodes: Unremarkable. Vasculature: Mild diffuse atherosclerotic calcifications are noted. Peritoneum / Retroperitoneum: Unremarkable Bones: Degenerative changes of the spine. CT/Abdomen/Pelvis without Cont IMPRESSION: Moderate degree of right hydronephrosis due to a 3 mm calculus in the midportio n of the right ureter. Nonobstructive bilateral intrarenal calculi and nonspecific bilateral perinephr ic stranding. Multiple gallstones. Sigmoid diverticulosis. Prostatic hypertrophy with indentation of the bladder base. Bladder wall thickening. Reading Location: [id number]
== END | disposition home or self-care (01) ==
PROVIDERS: PCP Family Medicine; Referring Provider Urology; Visit Provider Urology
DX: R10.84 Generalized abdominal pain (principal)
CPT/HCPCS: 74176

== ENCOUNTER 2024-11-03 08:39 | Day surgery (SDC) | payer MEDICARE, SELFPAY ==
--- NOTE | 2024-10-31 15:50 | PAT.ANE_ITS ---
Pre-Assessment Diagnosis/Proposed Procedure Planned Operative Procedure(s): (R) Cysto,Ureteroscopy,Retro,Dil,Laser,Stent Anesthesia History Anesthesia History - cook helper vegetable: Anesthesia History - cook helper vegetable Hx Hospitalization No 10/31/24 15:31 Any Problems With Anesthesia No 10/31/24 15:31 Cholinesterase deficiency No 10/31/24 15:31 You/Your Family Experience No 10/31/24 15:31 fever (hyperthermia) with Relationship Recent Exposure to Contagious No 03/14/18 11:55 Disease Does patient have nerve No 10/31/24 15:31 stimulator Patient instructed to have device shut off --Does patient have Pacemaker or ICD? When Was Last Pacemaker Check QUESTION #4 FULL TEXT: You/Your Family Experience fever (hyperthermia) with Anesthesia Last Oral Intake Last Oral intake: Last Oral Intake NPO since Meds taken in AM with sips of water? Meds patient instructed to take am of surgery PONV PONV - cook helper vegetable: PONV - cook helper vegetable Female No 10/31/24 15:31 HX of Motion Sickness No 10/31/24 15:31 HX of N/V After Surgery No 10/31/24 15:31 Non-Smoker Yes 10/31/24 15:31 Duration of Surgery greater No 10/31/24 15:31 than 60 minutes Number of Risk Factors 1 10/31/24 15:31 PONV Score Low Risk 10/31/24 15:31 Height & Weight Height & Weight: Anesthesia: Height & Weight Height 5 ft 11 in 09/12/24 07:56 Respiratory Assessment Respiratory Assessment - cook helper vegetable: Respiratory Tract Infection Hx - cook helper vegetable Hx Respiratory Tract Infection No 10/31/24 15:31 STOP Sleep Apnea STOP Sleep Apnea - cook helper vegetable: STOP Sleep Apnea - cook helper vegetable Hx Hypertension No 10/31/24 15:31 Hx Sleep Apnea No 10/31/24 15:31 CPAP No 10/31/24 15:31 BIPAP Do you snore loudly (louder No 10/31/24 15:31 than talking or can be heard Do you often feel tired/ No 10/31/24 15:31 fatigued/ sleepy during daytime? Has anyone observed you stop No 10/31/24 15:31 breathing during sleep? STOP Results Negative 10/31/24 15:31 QUESTION #5 FULL TEXT : Do you snore loudly (louder than talking or can be heard through closed doors)? 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 Specify any problems Hx of Preganancy in last 3 N/A 10/31/24 15:31 Months Nurse Filling Out Transfusion VCHRISTIN 10/31/24 15:31 & Questions: Date: 10/31/24 10/31/24 15:31 Time: 15:31 10/31/24 15:31 Patient unable to answer at this time (ie. confused, unrespo /Reproduction History /Reproductive History - cook helper vegetable: /Reproductive Hx- cook helper vegetable Hx Now Gestational Age (in weeks): EDC: Hx Hx Para Hx Section SAB PFSH Medical History (Updated 10/31/24 @ 15:30 by Sofia Vergara) Wears hearing aid Wears glasses Cancer Arthritis Excessive bleeding Injury of back Gastric reflux Non-smoker Shortness of breath on exertion History of edema History of echocardiogram History of stress test Cardiology follow-up encounter History of irregular heartbeat Non-sustained ventricular tachycardia Mobitz type 2 second degree atrioventricular block Nonobstructive atherosclerosis of coronary artery Osteoarthritis BPH (benign prostatic hyperplasia) Urinary calculi Renal calculi Hyperlipidemia Sinus bradycardia Home Medications ?Medication ?Instructions ?Recorded ?Last Taken ?Type aspirin 81 mg tablet,delayed 81 mg PO DAILY 06/10/21 0 10/10/24 History release (Adult Low Dose Aspirin) rosuvastatin 10 mg tablet See Rx Instructions .Route 0 08/08/24 Unknown Rx .COMPLEX #90 tabs metoprolol succinate 25 mg 25 mg PO DAILY #90 tabs Unknown Rx tablet,extended release 24 hr famotidine 20 mg tablet (Pepcid) 20 mg PO QDAY 5 Unknown History multivitamin 1 tab PO QDAY 09/12/24 Unkno wn History magnesium oxide 400 mg PO DAILY 10/31/24 Unk nown History melatonin 10 mg capsule 10 mg PO QHS 10/31/24 Unknow n History Allergy/AdvReac Type Severity Reaction Status Date / Time No Known Allergies Allergy Verified 10/31/24 15:20 Family History Father , age 71 COPD (chronic obstructive pulmonary disease) Brother Cancer brain tumor Surgical History (Updated 10/31/24 @ 15:30 by Sofia Vergara) S/P ureteral stent placement 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) History of cataract extraction (07/12/19) History of left inguinal hernia repair History of colonoscopy History of right inguinal hernia repair History of cystoscopy History of left heart catheterization (11/03/13) Social History Smoking Status: Never smoker alcohol intake: current alcohol intake frequency: holidays/special occasions only substance use type: does not use caffeine: Yes Type: carbonated beverages Number of servings: 1 and tea Number of servings: 1 Audit: Pertinent Findings Pertinent Findings EKG Perinent findings: 10/07/2021. AV dual paced rhythm. 50 bpm. Echo (EF%) pertinent findings: 07/06/2023. Normal size function EF 60%. Pulmonary artery pressure 45. Mild pulmonary hypertension. Consult pertinent findings: Cardiology 09/12/2024. History of cardiac pacemaker placement. Stable. Placed on metoprolol due to occasional supraventricular tachycardia episodes. Coronary artery disease. Chronic. Nonobstructive. Does not recommend any changes at this time. Recommendation Anesthesia Recommendation Anesthesia recommendation: OPTIMIZED for anesthesia
[2024-11-03] VITALS (11 sets, daily range): BP systolic 144–157; BP diastolic 75–94; PULSE 50–51; RESP 16–18; TEMP 36.1–36.4; O2SAT 95–100; BMI 23.3
--- NOTE | 2024-11-03 08:55 | PCM.PRE.AN2 ---
ASA Classification* ASA Classification ASA Classification: 3 Assessment & Plan Anesthesia* Anesthesia Assessment Anesthesia Assessment: Discussed sedation and/or anesthesia options, risks, benefits, and alternatives with patient/parents/legal guardian/POA. Questions invited. The patient/parents/legal guardian/POA seems to understand and agrees to proceed with anesthesia plan. Reviewed the physical assessment, medical history, allergy history and patient home medications list prior to surgery/procedure/anesthetic and documented any changes. Performed airway and anesthesia risk assessments. Anesthesia Type Anesthesia Type: General Anesthesia Focused Assessment* Airway Assessment Mouth opens: >3 cm Mallampati Score: II Focused Labs Anesthesia Preop lab: CBC WBC 6.6 K/mm3 (4.4-11.0) 07/21/23 15:07/21/23 RBC 4.30 M/mm3 (4.6-6.2) L 07/21/23 15:01 07/21/23 Hgb 12.7 g/dL (13.0-16.5) L 07/21/23 15:07/21/23 Hct 39.2 % (40-54) L 07/21/23 15:07/21/23 Plt Count 162 K/mm3 (150-450) 07/21/23 15:01 07/21/23 CHEMISTRY Potassium 3.4 mmol/L (3.5-5.1) L 07/21/23 15:01 07/21/23 Sodium 138 mmol/L (136-145) 07/21/23 15:01 07/21/23 BUN 25 mg/dL (7-18) H 07/21/23 15:07/21/23 Creatinine 1.27 mg/dL (0.70-1.30) 07/21/23 15:07/21/23 Glucose 89 mg/dL (74-106) 07/21/23 15:07/21/23 COAG PT 12.6 SECONDS (11.7-14.9) 10/26/19 10:43 10/26/19 Pre-Assessment Diagnosis/Proposed Procedure Planned Operative Procedure(s): (R) Cysto,Ureteroscopy,Retro,Dil,Laser,Stent Anesthesia History Anesthesia History - vice president of product marketing: Anesthesia History - vice president of product marketing Hx Hospitalization No 05/20/25 15:31 Any Problems With Anesthesia No 10/31/24 15:31 Cholinesterase deficiency No 10/31/24 15:31 You/Your Family Experience No 10/31/24 15:31 fever (hyperthermia) with Relationship Recent Exposure to Contagious No 03/14/18 11:55 Disease Does patient have nerve No 10/31/24 15:31 stimulator Patient instructed to have device shut off --Does patient have Pacemaker or ICD? When Was Last Pacemaker Check QUESTION #4 FULL TEXT: You/Your Family Experience fever (hyperthermia) with Anesthesia Last Oral Intake Last Oral intake: Last Oral Intake NPO since Meds taken in AM with sips of water? Meds patient instructed to take am of surgery PONV PONV - vice president of product marketing: PONV - vice president of product marketing Female No 10/31/24 15:31 HX of Motion Sickness No 10/31/24 15:31 HX of N/V After Surgery No 10/31/24 15:31 Non-Smoker Yes 10/31/24 15:31 Duration of Surgery greater No 10/31/24 15:31 than 60 minutes Number of Risk Factors 1 10/31/24 15:31 PONV Score Low Risk 10/31/24 15:31 Height & Weight Height & Weight: Anesthesia: Height & Weight Height 5 ft 11 in 11/02/24 07:50 Weight: 72.575 kg 11/02/24 07:50 Respiratory Assessment Respiratory Assessment - vice president of product marketing: Respiratory Tract Infection Hx - vice president of product marketing Hx Respiratory Tract Infection No 10/31/24 15:31 STOP Sleep Apnea STOP Sleep Apnea - vice president of product marketing: STOP Sleep Apnea - vice president of product marketing Hx Hypertension No 10/31/24 15:31 Hx Sleep Apnea No 10/31/24 15:31 CPAP No 10/31/24 15:31 BIPAP Do you snore loudly (louder No 10/31/24 15:31 than talking or can be heard Do you often feel tired/ No 10/31/24 15:31 fatigued/ sleepy during daytime? Has anyone observed you stop No 10/31/24 15:31 breathing during sleep? STOP Results Negative 10/31/24 15:31 QUESTION #5 FULL TEXT : Do you snore loudly (louder than talking or can be heard through closed doors)? 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 Specify any problems Hx of Preganancy in last 3 N/A 10/31/24 15:31 Months Nurse Filling Out Transfusion VCHRISTIN 10/31/24 15:31 & Questions: Date: 10/31/24 10/31/24 15:31 Time: 15:31 10/31/24 15:31 Patient unable to answer at this time (ie. confused, unrespo /Reproduction History /Reproductive History - vice president of product marketing: /Reproductive Hx- vice president of product marketing Hx Now Gestational Age (in weeks): EDC: Hx Hx Para Hx Section SAB Active Medications Active Medications: Current Medications Generic Name Dose Route Start Last Admin Trade Name Freq PRN Reason Stop Dose Admin Cefazolin Sodium 2 gm/ Sodium 110 mls @ 150 mls/hr 11/03/24 10:45 Chloride IV 11/03/24 11:28 INTRAOP ONE Lactated Ringer's 1,000 mls @ 15 mls/hr 11/03/24 09:00 IV .Q48H JESSICA PFSH Medical History Wears hearing aid Wears glasses Cancer Arthritis Excessive bleeding Injury of back Gastric reflux Non-smoker Shortness of breath on exertion History of edema History of echocardiogram History of stress test Cardiology follow-up encounter History of irregular heartbeat Non-sustained ventricular tachycardia Mobitz type 2 second degree atrioventricular block Nonobstructive atherosclerosis of coronary artery Osteoarthritis BPH (benign prostatic hyperplasia) Urinary calculi Renal calculi Hyperlipidemia Sinus bradycardia Home Medications ?Medication ?Instructions ?Recorded ?Last Taken ?Type aspirin 81 mg tablet,delayed 81 mg PO DAILY 06/10/21 10/10/24 History release (Adult Low Dose Aspirin) rosuvastatin 10 mg tablet See Rx Instructions .Route 08/08/24 Unknown Rx .COMPLEX #90 tabs metoprolol succinate 25 mg 25 mg PO DAILY #90 tabs 09/05/24 Unknown Rx tablet,extended release 24 hr famotidine 20 mg tablet (Pepcid) 20 mg PO QDAY 09/12/24 Unknown History multivitamin 1 tab PO QDAY 09/12/24 Unknown History magnesium oxide 400 mg PO DAILY 10/31/24 Unknown History melatonin 10 mg capsule 10 mg PO QHS 10/31/24 Unknown History Allergy/AdvReac Type Severity Reaction Status Date / Time No Known Allergies Allergy Verified 11/03/24 08:51 Family History Father , age 71 COPD (chronic obstructive pulmonary disease) Brother Cancer brain tumor Surgical History S/P ureteral stent placement 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) History of cataract extraction (07/12/19) History of left inguinal hernia repair History of colonoscopy History of right inguinal hernia repair History of cystoscopy History of left heart catheterization (11/03/13) Social History Smoking Status: Never smoker alcohol intake: current alcohol intake frequency: holidays/special occasions only substance use type: does not use caffeine: Yes Type: carbonated beverages Number of servings: 1 and tea Number of servings: 1 Review of Systems (Anesthesia) ROS Narrative System reviewed and no additional complaints, except as documented.
[2024-11-03] MEDS: Lactated Ringers 1,000 ML 15 ML IV (09:10)
--- NOTE | 2024-11-03 09:43 | PCM.HP.STD ---
[facility] - General General Date of Service: 11/03/24 Chief Complaint: Obstructing stone and stricture in the proximal right ureter HPI Narrative FENG JONES, is a 84 M who presents hospital for treatment of a ureteral stricture he has a history of a kidney stone that was stuck in the ureter back in 2017 this was lasered after this procedure he developed a stricture in the proximal ureter several times I had to dilate the stricture he comes back in with flank pain on the right side CAT scan was done that demonstrates a stone proximal to the stricture. Plan to do a cystoscopy retrograde pyelogram balloon dilation of the stricture and laser lithotripsy of the stone and stent placement. He understands it is very possible and likely that the stricture will come back we discussed referral to tertiary care center for possible reconstruction given the very nature of the stricture and the location of the stricture it would be very difficult to do a repair. [facility] Medical History Wears hearing aid Wears glasses Cancer Arthritis Excessive bleeding Injury of back Gastric reflux Non-smoker Shortness of breath on exertion History of edema History of echocardiogram History of stress test Cardiology follow-up encounter History of irregular heartbeat Non-sustained ventricular tachycardia Mobitz type 2 second degree atrioventricular block Nonobstructive atherosclerosis of coronary artery Osteoarthritis BPH (benign prostatic hyperplasia) Urinary calculi Renal calculi Hyperlipidemia Sinus bradycardia Home Medications ?Medication ?Instructions ?Recorded ?Last Taken ?Type aspirin 81 mg tablet,delayed 81 mg PO DAILY 06/10/21 10/10/24 History release (Adult Low Dose Aspirin) rosuvastatin 10 mg tablet See Rx Instructions .Route 08/08/24 11/02/24 Rx .COMPLEX #90 tabs metoprolol succinate 25 mg 25 mg PO DAILY #90 tabs 09/05/24 11/03/24 Rx tablet,extended release 24 hr famotidine 20 mg tablet (Pepcid) 20 mg PO QDAY 09/12/24 11/02/24 History multivitamin 1 tab PO QDAY 09/12/24 11/02/24 History magnesium oxide 400 mg PO DAILY 10/31/24 11/02/24 History melatonin 10 mg capsule 10 mg PO QHS 10/31/24 11/02/24 History acetaminophen 500 mg capsule 500 mg PO Q4H PRN pain #20 caps 11/03/24 Unknown Rx ibuprofen 600 mg tablet 600 mg PO Q6H PRN pain #20 tabs 11/03/24 Unknown Rx phenazopyridine 100 mg tablet 100 mg PO TID PRN pain #14 tabs 11/03/24 Unknown Rx (Pyridium) Allergy/AdvReac Type Severity Reaction Status Date / Time No Known Allergies Allergy Verified 11/03/24 08:51 Family History Father , age 71 COPD (chronic obstructive pulmonary disease) Brother Cancer brain tumor Surgical History S/P ureteral stent placement 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) History of cataract extraction (07/12/19) History of left inguinal hernia repair History of colonoscopy History of right inguinal hernia repair History of cystoscopy History of left heart catheterization (11/03/13) Social History Smoking Status: Never smoker alcohol intake: current alcohol intake frequency: holidays/special occasions only substance use type: does not use caffeine: Yes Type: carbonated beverages Number of servings: 1 and tea Number of servings: 1 Vital Signs Vital Signs Vital Signs: 11/03/24 09:07 11/03/24 09:07 Temperature 97 F L Temperature Source Temporal Pulse Rate 51 L Respiratory Rate 18 Respiratory Pattern Normal Blood Pressure 147/94 H Blood Pressure Mean 111 Blood Pressure Source Monitor Blood Pressure Position Semi-Fowlers Blood Pressure Location Right Arm Pulse Ox 100 Oxygen Delivery Method Room Air Weight Weight: 73.6 kg Body Mass Index (BMI) 23.3
--- NOTE | 2024-11-03 09:44 | DCINST_ITS ---
Discharge Instructions Diet Discharge Diet: No restrictions DC O2, CPAP, BIPAP needs Home O2 Discharge instructions: No Dressing / Incision Discharge Activity: Return to Normal Activity and May Not Drive (while taking narcotic pain medications.) Dressing / Incision Call your doctor if you observe: Fever of 101 or Higher Follow Up Care Please Follow Up With: Mike Dougherty MD When: Call [phone] for an appointment Test Results: Test results from this visit will be discussed in further detail at your follow- up appointment, if applicable. Discharge Plan Admission Primary Reason for Your Visit: Laser stone balloon dilation of stricture Attending Provider: Mike Dougherty Primary Care Provider: Manuel Simpson Instructions Print Language: Puerto Rican Discharge Orders/Prescriptions Prescriptions: New ibuprofen 600 mg tablet 600 mg PO Q6H PRN (Reason: pain) Qty: 20 0RF acetaminophen 500 mg capsule 500 mg PO Q4H PRN (Reason: pain) Qty: 20 0RF phenazopyridine [Pyridium] 100 mg tablet 100 mg PO TID PRN (Reason: pain) Qty: 14 0RF Continued aspirin [Adult Low Dose Aspirin] 81 mg tablet,delayed release (DR/EC) 81 mg PO DAILY multivitamin Tablet 1 tab PO QDAY famotidine [Pepcid] 20 mg tablet 20 mg PO QDAY melatonin 10 mg capsule 10 mg PO QHS magnesium oxide 400 mg magnesium capsule 400 mg PO DAILY rosuvastatin 10 mg tablet See Rx Instructions .ROUTE .COMPLEX Qty: 90 3RF Dose Instruction: TAKE 1 TABLET DAILY Rx Instructions: TAKE 1 TABLET DAILY metoprolol succinate 25 mg tablet extended release 24 hr 25 mg PO DAILY Qty: 90 3RF Referrals / Follow Up: Manuel Simpson MD [Primary Care Provider] - Mike Dougherty MD [Med Staff - Active Staff] - Disposition Disposition (needs filled in before D/C Order can be placed): Home, Self Care
[2024-11-03] MEDS: Cefazolin 2 GM in 0.9% Normal Saline (100mL Bag) 100 ML IV (10:47)
--- NOTE | 2024-11-03 11:26 | PCM.OPRPT ---
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 and right kidney stone Post-Operative Diagnosis: The same Surgery/Procedure Performed: Cystoscopy, retrograde pyelogram, balloon dilation of ureteral stricture, right ureteroscopy laser lithotripsy of stone and right stent placement orthotic/prosthetic clinician: No Type of Anesthesia: General RN Documented Start/Stop Times: Operation Date: 11/03/24 10:45 Case Time Into Pre-Op 11/03/24 08:52 Anesthesia Start 11/03/24 10:38 Into Room 11/03/24 10:38 Out of Pre-Op 11/03/24 10:38 Procedure Start 11/03/24 10:57 Procedure Start Time: 10:57 Procedure Stop Time: 11:27 Select all DRAINS/GRAFTS/IMPLANTS that apply: None (right stent) and Drains Drain details: 6x 26 cm stent Estimated Blood Loss: 0 Specimen collected: No Description of surgery: This is an 84-year-old gentleman has a history of kidney stones long time ago he had a stone impacted in the proximal right ureter underwent ureteroscopy and laser lithotripsy. Since then he has had recurrent stricture at the same site over and over several years ago I dilated this with a balloon dilator he came back to the office again CAT scan again demonstrated right hydronephrosis down to the area of his stricture in the proximal ureter. Renal taken back today to do a balloon dilation laser lithotripsy of the stone fragment and stent placement but I explained to the patient and the family very likely that the stricture will not cure with balloon dilation and I have a referral already pending to a reconstructive specialist up in [place] to see if they can offer him a reconstructive option to get rid of the ureteral stricture Patient was taken back to the operating room after smooth induction of anesthesia he was placed in dorsolithotomy position. Penis and testicles were prepped and draped in usual fashion went into the bladder with a 21 Bruneian rigid cystourethroscope he had a large obstructive prostate inside the bladder I cannulated the right ureteral orifice with a Glidewire advanced it up went all the way up to the kidney I then pulled it back and did a retrograde pyelogram with a Pollick catheter and images were saved on x-ray he can see a stricture in the mid proximal ureter appeared to be short in length I then advanced a 15 Bruneian balloon dilator and insufflated the balloon dilator up to 20 mic of pressure I first there was still the stricture but then with time the stricture went away and we waste went away and then I went up with a flexible ureteroscope I could see the stricture is very tense very dense was able to get through this ureteroscope and then above this and found a stone and lasered the stone little tiny pieces perform laser lithotripsy and the stone that should pieces should hopefully pass there were lasered at the dust using the thulium laser fiber with 2 and 200 ?m laser on dusting settings after this was done then I worked my way down the ureter again he could see the strictured area proximal ureter I do not think this is getting heal spontaneously over stent has not healed before. So I left the stent in but he has a referral to go to [place] to getting a second opinion on how to manage his ureteral stricture probably reconstructive procedure is necessary. Patient bladder was drained he will follow-up in my office but will put a referral but he will follow-up in my office Surgical Findings: Dense stricture in the mid proximal ureter right ureter Complications Complications: No Admit VTE Documentation VTE Present on Admission: No VTE Mechan Device Prophylaxis: SCD's VTE Pharm Prophylaxis ordered?: No
--- NOTE | 2024-11-03 11:38 | PCM.POST.ANE ---
Anesthesia: Postop Eval I Current Vital Signs Temperature: 97.6 F Pulse Rate: 50 (V Paced) Blood Pressure: 154/86 Respiratory Rate: 16 Pulse Ox: 98 Oxygen Delivery Method: Room Air Assessment Airway patent: Yes Spontaneous unlabored respirations: Yes Mental status: Awake and Calm nausea: No Vomiting: No Anesthesia Complication: No Fluid Hydration Crystalloid volume administer (ml): 600 Total IV fluid infused: 600 Progress Note Anesthesia document: Postop Eval 1 completed: Yes
[2024-11-03] MEDS: Ketorolac 30 MG/ML Syringe IV (11:47)
--- NOTE | 2024-11-03 12:55 | POSTOPAN2_ITS ---
Anesthesia Postop Eval I Sum Postop Eval Completion status Anesthesia document: Postop Eval 1 completed: Yes Anesthesia Postop Eval I Summary Anesthesia Postop Eval I Summary: Anesthesia Postop Eval I: Assessment Summary Airway patent Yes 11/03/24 11:39 CONTROL [email or web address] Spontaneous unlabored Yes 11/03/24 11:39 CONTROL [email or web address].MDOT respirations Mental status Awake,Calm 11/03/24 11:39 CONTROL [email or web address].MDOT nausea No 11/03/24 11:39 CONTROL [email or web address].MDOT Vomiting No 11/03/24 11:39 CONTROL [email or web address].[email or web address] Anesthesia Postop Eval I: Fluid Summary Crystalloid volume administer 600 11/03/24 11:39 CONTROL CLERK.MDOT (ml) Colloids volume administered ( ml) Blood Product volume administered (ml) Total IV fluid infused 600 11/03/24 11:39 CONTROL [email or web address].[email or web address] Anesthesia Postop Eval I: Summary Notes Anesthesia Complication No 11/03/24 11:39 CONTROL [email or web address].MDOT Anesthesia Complication Comment: Post-operative progress note Anesthesia: Postop Eval II Evaluation Mental status: Awake Pain Level: 0 nausea: No Vomiting: No
--- NOTE | 2024-11-03 12:55 | PCM.POSTANE2 ---
Anesthesia Postop Eval I Sum Postop Eval Completion status Anesthesia document: Postop Eval 1 completed: Yes Anesthesia Postop Eval I Summary Anesthesia Postop Eval I Summary: Anesthesia Postop Eval I: Assessment Summary Airway patent Yes 11/03/24 11:39 [email or web address] Spontaneous unlabored Yes 11/03/24 11:39 [email or web address] respirations Mental status Awake,Calm 11/03/24 11:39 [email or web address] nausea No 11/03/24 11:39 [email or web address] Vomiting No 11/03/24 11:39 [email or web address] [email or web address] Anesthesia Postop Eval I: Fluid Summary Crystalloid volume administer 600 11/03/24 11:39 BUSINESS [email or web address] (ml) Colloids volume administered ( ml) Blood Product volume administered (ml) Total IV fluid infused 600 11/03/24 11:39 BUSINESS [email or web address] Anesthesia Postop Eval I: Summary Notes Anesthesia Complication No 11/03/24 11:39 BUSINESS [email or web address] Anesthesia Complication Comment: Post-operative progress note Anesthesia: Postop Eval II Evaluation Mental status: Awake Pain Level: 0 nausea: No Vomiting: No
== END 2024-11-03 13:08 | disposition home or self-care (01) ==
LOC: SDC 08:40 → AC 08:40
PROVIDERS: PCP Family Medicine; Referring Provider Urology; Visit Provider Urology
PROC: (CPT 52356; principal; 2024-11-03 10:35)
DX: N13.2 Hydronephrosis with renal and ureteral calculous obstruction (principal); I25.10 Atherosclerotic heart disease of native coronary artery without angina pectoris; Z79.899 Other long term (current) drug therapy; K21.9 Gastro-esophageal reflux disease without esophagitis; E78.5 Hyperlipidemia, unspecified
CPT/HCPCS: 52353; 00918; 76000; C1769; C2617; J2405

== ENCOUNTER → 2025-03-20 | Outpatient (CLI) | payer MEDICARE, SELFPAY ==
--- NOTE | 2025-03-20 14:39 | CT_ITS ---
PROCEDURE: ABDOMEN/PELVIS WITHOUT CONT 03/20/2025 REASON FOR EXAM: KIDENY STONE TECHNIQUE: Procedure Code: CTABDPEL Modality: CT Procedure: ABDOMEN/PELVIS WITHOUT CONT Noncontrast technique limits evaluation of the abdominal and pelvic viscera. Coronal and Sagittal reconstruction series were provided. One or more dose reduction techniques were used (e.g., Automated exposure control, adjustment of the mA and/or kV according to patient size, use of iterative reconstruction technique). RADIATION DOSE SUMMARY: CTDlvol: 7.7 mGy DLP: 382 mGycm COMPARISON: CT abdomen and pelvis without contrast 10/24/2024. FINDINGS: Lung bases: Bibasilar atelectasis. Patchy nodularity with reticulation within left lung base. Partially visualized pacer leads. Liver: Mild diffuse hepatic steatosis. Stable right hepatic lobe hypoattenuating lesion measuring 8 mm likely cyst., unchanged Gallbladder: Several calcified gallstones. Spleen: Pancreas: Adrenals: Kidneys: Nonobstructing right midpole renal calculus measuring 3 mm. Right midpole renal lesion measuring 1.8 cm. Additional hypo attenuating lesion within right lower pole measured 2.1 x 1.3 cm. There is 3 mm left midpole renal calculus. There is new left UVJ calculus measuring 8 mm. Bilateral nonspecific perinephric stranding. Bladder: Reproductive Organs: Enlarged prostate measuring 5.6 x 4.3 cm with scattered calcification. Bowel: Moderate hiatal hernia. Colonic diverticulosis without evidence of diverticulitis. [id number] stool burden. Appendix: The appendix is not identified. There is no inflammatory process identified in the right lower quadrant to suggest appendicitis. Lymph nodes: Redemonstration of calcified mesenteric lymph node within left upper quadrant measuring 2.5 x 2.1 cm, unchanged since prior study. Scattered mesenteric lymph nodes such as left upper quadrant lymph node measuring 6 mm (series 601/55) Vasculature: Mild diffuse atherosclerotic calcifications are noted. Peritoneum / Retroperitoneum: Mild bilateral perinephric stranding. Bones: Redemonstration of compression deformity of L3 vertebral body. CT/Abdomen/Pelvis without Cont IMPRESSION: There is new left UVJ calculus measuring 8 mm. There is mild right hydronephro sis. Additional bilateral nonobstructing renal calculi are visualized measuring up to 3 mm. Cholelithiasis without evidence of cholecystitis. Enlarged prostate with scattered calcification. Raegvmyi-yj-ahspy stool burden. Colonic diverticulosis without evidence of div erticulitis. Reading Location: [id number]
== END | disposition home or self-care (01) ==
PROVIDERS: PCP Family Medicine; Referring Provider Urology; Visit Provider Urology
DX: N20.0 Calculus of kidney (principal)
CPT/HCPCS: 74176

== ENCOUNTER → 2025-03-20 | Outpatient (CLI) | payer MEDICARE, SELFPAY ==
--- NOTE | 2025-03-20 13:05 | RAD_ITS ---
PROCEDURE: ABDOMEN SINGLE VIEW 03/20/2025 REASON FOR EXAM: CALCULUS OF KIDNEY TECHNIQUE: Procedure Code: RADABD Modality: DX Procedure: ABDOMEN SINGLE VIEW COMPARISON: [facility]UB, 07/21/2023. FINDINGS: The bowel gas pattern is nonobstructive. There is a 2.6 cm in diameter nodule with a calcified wall in the left mid abdomen shown by recent CT to be an area of fat necrosis in the mesentery. There are 2 x 3 mm calcifications projected over the left renal outline, 1 in the upper pole and 1 in the lower pole. 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 RAD/Abdomen Single View IMPRESSION: Left nephrolithiasis as described. Other findings as noted. Reading Location: [id number]
== END | disposition home or self-care (01) ==
LOC: RAD 12:58
PROVIDERS: PCP Family Medicine; Referring Provider Urology; Visit Provider Urology
DX: N20.0 Calculus of kidney (principal)
CPT/HCPCS: 74018

== ENCOUNTER → 2025-04-03 | Outpatient (CLI) | payer MEDICARE, SELFPAY ==
--- NOTE | 2025-04-03 14:02 | EKG12_ITS ---
Test Reason : PREOP Blood Pressure : */* mmHG Vent. Rate : 50 BPM Atrial Rate : 50 BPM P-R Int : 176 ms QRS Dur : 166 ms QT Int : 532 ms P-R-T Axes : -17 -73 63 degrees QTcB Int : 485 ms Electronic A-V pacemaker Confirmed by Leonid Davis ([id number]), editorial project manager TANIA BUCKLEY ([id number]) on 04/04/2025 5:56:25 AM Referred By: Manuel Simpson Confirmed By: Leonid Davis
--- OUTSIDE RECORDS SUMMARY | 2025-04-03 14:16 | XMS RPT_ITS | CCD ---
Author Organization [facility] Care Team Providers Care Formal Service Waiter Name Role Phone WHG Nurse Unavailable Unavailable Kayce Claudio Unavailable Unavailable Tina RN, [place] Garcia Unavailable Unavailable MD Mason Cyril S Unavailable Dr. Omer Simpson Primary Care Provider [phone] Dr. Pardeep Mason Attending Provider Dr. Pardeep Mason Referring Provider [phone] Nik Hameed Attending Provider Dr. Mike Dougherty Referring Provider Dr. Omer Simpson Referring Provider Pauline Nieto Attending Provider Unavailable Dr. Omer Simpson Primary Care Provider [phone] Dr. Pardeep Mason Attending Provider Pauline Nieto Attending Provider Unavailable Dr. Omer Simpson Primary Care Provider [phone] Dr. Omer Simpson Referring Provider Pauline Nieto Attending Provider Unavailable Dr. Omer Simpson Primary Care Provider [phone] Roof SLITTER SCORER CUT OFF OPERATOR, SLITTER SCORER CUT OFF OPERATOR-C Gary Ventura Referring Provider Roof SLITTER SCORER CUT OFF OPERATOR, SLITTER SCORER CUT OFF OPERATOR-Anirudh Ventura Other Provider Dr. Pardeep Mason Attending Provider Roof SLITTER SCORER CUT OFF OPERATOR, SLITTER SCORER CUT OFF OPERATOR-C Gary Ventura Attending Provider Dr. Omer Simpson Referring Provider Allison MORA, MORGAN Kauffman Attending Provider MATTHIAS LARES Attending Unavailable RANNEY, JOSEER B Referring Unavailabl e Calvin DUFFY, Dr. Jackson Primary Care Provider Isabella DUFFY, Dr. Roberto Attending Provider Isabella DUFFY, Dr. Roberto Referring Provider Calvin DUFFY, Dr. Jackson Referring Provider Ladonna DUFFY, Dr. Mike Izquierdo Attending Provider Ladonna DUFFY, Dr. Mike Izquierdo Referring Provider Calvin DUFFY, Dr. Jackson Primary Care Provider Isabella DUFFY, Dr. Roberto Attending Provider Isabella DUFFY, Dr. Roberto Referring Provider [phone] Calvin DUFFY, Dr. Jackson Primary Care Physicia n Isabella DUFFY, Dr. Roberto Attending Physician [phone] Isabella DUFFY, Dr. Roberto Referring Provider Calvin DUFFY, Dr. Jackson Referring Provider [phone] Pauline Nieto Attending Physician Unavailable Ladonna, Zachary Referring Unavailable Ladonna, Mike Iqzuierdo Attending Unavailable [facility]available Ladonna, Mike Izquierdo Attending Unavailable Ladonna, Zachary Referring Unavailable Ranney, Christopher Primary Care Unavailable Ranney, Christopher Primary Care Unavailable Ladonna, Zachary Attending Unavailable Ladonna, Zachary Referring Unavailable Isabella, Pardeep Referring Unavailable Ranney, Christopher Primary Care Unavailable Isabella, [place] Attending Unavailable Isabella, [place] Referring Unavailable Ranney, Christopher Primary Care Unavailable Isabella, [place] Attending Unavailable Isabella, [place] Referring Unavailable Isabella, [place] Attending Unavailable Ranney, Christopher Primary Care Unavailable Isabella, Pardeep Attending Unavailable Ranney, Christopher Primary Care Unavailable Ranney, Christopher Primary Care Unavailable Isabella, [place] Referring Unavailable Isabella, Pardeep Attending Unavailable Isabella, [place] Referring Unavailable Isabella, Pardeep Attending Unavailable Manuel Simpson Primary Care Unavailable Ranroseanne, Manuel Referring Unavailable [facility] Unavailable Pardeep Mason Attending Unavailable Mike Dougherty Attending Unavailable Mike Dougherty Referring Unavailable Ranroseanne, Christopher Primary Care Unavailable Ranroseanne, Manuel Referring Unavailable Manuel Simpson Attending Unavailable Ranney, [facility] Primary Care Unavailable Manuel Simpson Attending Unavailable Calvin, [facility] Unavailable Mike Dougherty Referring Unavailable Mike Dougherty Attending Unavailable Calvin, Christcarler Primary Care Unavailable Ranroseanne, Joseer Primary Care Unavailable Jose Clancy Attending Unavailable Medications Current Medications Medication Drug Class(es) Dates Sig (Normalized) Sig (Original) acetaminophen 500 mg oral capsule (3 sources) Start: 11-03-2024 take 1 capsule by mouth every four hours as needed for pain aspirin 81 mg delayed release oral tablet (20 sources) Platelet Aggregation Inhibitor, Nonsteroidal Anti-inflammatory Drug Start: 06-10-2021 Start: 07-21-2011 take 1 tablet by kirt th once daily ASPIRIN 81 MG TABS One tablet by mouth daily ASPIRIN [id number] Pardeep Mason MD Start: 07-21-2011 take 1 tablet by kirt th once daily ASPIRIN 81 MG TABS One tablet by mouth daily ASPIRIN [id number] Pardeep Mason MD Start: 07-21-2011 take 1 tablet by kirt th once daily ASPIRIN EC 81 MG TBEC One tablet by mouth daily ASPIRIN [id number] Sisi Renae RN famotidine 20 mg oral tablet (20 sources) Histamine-2 Receptor Antagonist Start: 09-12-2024 take 1 tablet by mouth once daily Start: 07-22-2017 End: 07-26-2018 take 1 tablet by mouth once daily as needed Famotidine 10 mg tablet,chewable Discontinued 10 mg PO .q day as needed for Indigestion 0 July 22, 2017 9:57am July 26, 2018 10:07am Start: 07-22-2017 End: 07-26-2018 take 1 tablet by mouth once daily famotidine 10 mg chewable tablet Discontinued 10 MG PO .q day July 22, 2017 8:57am July 26, 2018 9:07am Start: 07-15-2017 End: 07-22-2017 take 2 tablets by mouth once daily as needed famotidine 10 mg chewable tablet Discontinued 10 MG PO .COMPLEX July 15, 2017 12:00am July 22, 2017 8:58am 10 mg PO 2 tablets PO QD PRN Start: 07-17-2011 End: 07-22-2017 take 2 tablets by mouth once daily as needed Famotidine 10 mg tablet,chewable Discontinued 10 mg PO .COMPLEX as needed 0 July 15, 2017 1:00am July 22, 2017 9:58am 10 mg PO 2 tablets PO QD PRN Start: 07-17-2011 take 2 tablets by mo [facility] once daily as needed PEPCID AC 10 MG CHEW Two tablets by mouth daily as needed FAMOTIDINE [id number] Pardeep Mason MD ibuprofen 600 mg oral tablet (3 sources) Nonsteroidal Anti-inflammatory Drug Start: 11-03-2024 take 1 tablet by mouth every six hours as needed for pain magnesium oxide 400 mg oral capsule (4 sources) Start: 10-31-2024 take 1 capsule by mouth once daily melatonin 10 mg oral capsule (8 sources) Start: 10-31-2024 take 1 capsule by mouth at bedtime Start: 07-16-2016 take 2 tablets by [facility] at bedtime as needed MELATONIN 10 MG CAPS Two tablets by mouth at bedtime as needed MELATONIN [id number] Pardeep Mason MD Multivitamin tablet (5 sources) Start: 09-12-2024 Start: 09-12-2024 Multivitamin t ablet Active 1 {tbl} PO daily September 12, 2024 12:00am phenazopyridine hydrochlorid e 100 mg oral tablet (3 sources) Start: 11-03-2024 take 1 tablet by [facility] three times daily as needed for pain Completed/Discontinued Medications Medication Drug Class(es) Dates Sig (Normalized) Sig (Original) acetaminophen 325 mg / HYDROcodone bitartrate 5 mg oral tablet (12 sources) Opioid Agonist Start: 03-14-2018 End: 03-19-2018 Hydrocodone-Acetami nophen 1 EACH tablet Discontinued 1 NMA PO EVERY 8 HOURS NEEDED as needed for Pain 15 5 0 March 14, 2018 1:02pm March 18, 2018 12:00am March 19, 2018 12:12am Start: 03-14-2018 End: 03-19-2018 Hydrocodone-Acetaminophen Di scontinued 1 EACH PO EVERY 8 HOURS NEEDED 15 March 14, 2018 12:02pm March 18, 2018 11:12pm cephalexin 500 mg oral capsule (12 sources) Cephalosporin Antibacterial Start: 04-11-2021 End: 06-10-2021 take 1 capsule by mouth every six hours Cephalexin 500 MG capsule Discontinued 500 mg PO EVERY 6 HOURS 40 0 April 11, 2021 12:00am June 10, 2021 10:14am ciprofloxacin 250 mg oral tablet (12 sources) Quinolone Antimicrobial Start: 01-06-2017 End: 07-22-2017 take 1 tablet by mouth twice daily Ciprofloxacin Hcl 250 MG tablet Discontinued 250 mg PO TWICE A DAY 20 January 06, 2017 12:00am July 22, 2017 9:57am dutasteride 0.5 mg oral capsule (8 sources) 5-alpha Reductase Inhibitor Start: 09-23-2012 End: 07-16-2016 take 1 tablet by mouth once daily AVODART 0.5 MG CAPS One tablet by mouth daily DUTASTERIDE [id number] Pardeep Mason MD finasteride 5 mg oral tablet (16 sources) 5-alpha Reductase Inhibitor Start: 07-16-2016 End: 07-26-2018 take 1 tablet by mouth once daily Finasteride 5 MG tablet Discontinued 5 mg PO DAILY January 05, 2017 12:00am July 26, 2018 10:07am lisinopril 2.5 mg oral tablet (12 sources) Angiotensin Converting Enzyme Inhibitor Start: 10-11-2013 End: 07-24-2015 take 1 tablet by mouth once daily LISINOPRIL 2.5 MG TABS One tablet by mouth daily LISINOPRIL [id number] An Cooper PA-C 24 hr metoprolol succinate 25 mg extended release oral tablet (20 sources) beta-Adrenergic Ambrosio Start: 04-14-2023 End: 09-05-2024 take 1 tablet by mouth once daily Metoprolol Succinate 25 mg tablet extended release 24 hr Discontinued 25 mg PO DAILY 90 3 August 08, 2024 5:50pm September 05, 2024 3:12pm MULTIPLE VITAMIN (3 sources) Start: 07-17-2011 take 1 tablet by mouth once daily MULTIVITAMINS TABS One tablet by mouth daily MULTIPLE VITAMIN [id number] Sheyla Paz MULTIPLE VITAMIN (1 source) Start: 07-17-2011 take 1 tablet by mouth once daily MULTIVITAMINS TABS One tablet by mouth daily MULTIPLE VITAMIN [id number] Sheyla Paz raNITIdine 150 mg oral tablet (12 sources) Histamine-2 Receptor Antagonist Start: 01-05-2017 End: 07-22-2017 take 1 tablet by mouth once daily Ranitidine Hcl 150 MG tablet Discontinued 150 mg PO DAILY January 05, 2017 12:00am July 22, 2017 9:58am rosuvastatin calcium 10 mg oral tablet (20 sources) HMG-CoA Reductase Inhibitor Start: 06-10-2023 End: 06-05-2024 Rosuvastatin 10 mg tablet Discontinued 0 .ROUTE .COMPLEX 90 3 June 10, 2023 8:56am June 05, 2024 11:14am TAKE 1 TABLET DAILY Start: 06-10-2023 End: 06-05-2024 Rosuvastatin 10 mg tablet Discontinued 0 .ROUTE .COMPLEX 90 June 10, 2023 8:56am June 05, 2024 11:14am TAKE 1 TABLET DAILY Start: 06-10-2023 Rosuvastatin A ctive 0 .ROUTE .COMPLEX 90 June 10, 2023 7:56am TAKE 1 TABLET DAILY Start: 08-03-2011 End: 08-08-2024 Rosuvastatin 10 mg tablet Discontinued 0 .ROUTE .COMPLEX 90 3 June 05, 2024 11:14am August 08, 2024 5:50pm TAKE 1 TABLET DAILY Start: 07-22-2011 take 2 tablets by mo ilh once daily CRESTOR 5 MG TABS Two tablest by mouth daily ROSUVASTATIN CALCIUM [id number] Melanie Nieto RN Start: 07-17-2011 take 1 tablet by kirt once daily CRESTOR 5 MG TABS One tablet by mouth daily ROSUVASTATIN CALCIUM [id number] MD Alex Rodriguez (16 sources) Start: 10-03-2013 End: 07-28-2019 take 900 mg by mouth once daily Alex Garay Discontinued 900 MG PO DAILY October 03, 2013 8:40am July 28, 2019 10:03am Start: 10-03-2013 End: 07-28-2019 take 1 capsule by mouth once daily Saw Kaleva 500 MG capsule Discontinued 900 mg PO DAILY October 03, 2013 12:00am July 28, 2019 10:03am Start: 10-03-2013 End: 07-28-2019 take 900 mg by mouth once daily Saw Kaleva Discontin ued 900 MG PO DAILY October 02, 2013 11:00pm July 28, 2019 9:03am Start: 10-03-2013 End: 07-28-2019 take 900 mg by mouth once daily Saw Kaleva Discontin ued 900 MG PO DAILY October 03, 2013 12:00am July 28, 2019 10:03am Start: 07-17-2011 take 1 tablet by kirt th once daily SAW PALMETTO 1000 MG CAPS One tablet by mouth daily SAW PALMETTO (SERENOA REPENS) [id number] Sheyla Paz Start: 07-17-2011 take 1 tablet by kirt th once daily SAW PALMETTO 1000 MG CAPS One tablet by mouth daily SAW PALMETTO (SERENOA REPENS) [id number] Sheyla Paz tamsulosin hydrochloride 0.4 mg oral capsule (20 sources) alpha-Adrenergic Ambrosio Start: 07-26-2018 End: 07-28-2019 take 1 capsule by mouth once daily Tamsulosin 0.4 mg capsule Discontinued 0.4 mg PO DAILY July 26, 2018 1:00am July 28, 2019 10:02am Start: 09-23-2012 End: 07-16-2016 take 1 tablet by mouth once daily FLOMAX 0.4 MG CAPS One tablet by mouth daily TAMSULOSIN HCL [id number] [place] Wilder RN valsartan 80 mg oral tablet (8 sources) Angiotensin 2 Receptor Ambrosio Start: 07-17-2011 End: 07-21-2011 take 1 tablet by mouth once daily DIOVAN 80 MG TABS One tablet by mouth daily VALSARTAN [id number] Sheyla Paz Problems Active Problems Problem Classification Problem Date Documented Date Episodic/Chronic Calculus of urinary tract (1 source) Calculus of kidney; Translations: [Calculus of kidney] Onset: 03-30-2025 Episodic Cardiac dysrhythmias (14 sources) Sinus bradycardia; Translations: [Nonsustained ventricular tachycardia ] Onset: 07-16-2015 07-16-2015 Chronic Comment on above: Per Device Report ; Cardiac dysrhythmias (18 sources) Sinus bradycardia; Translations: [Bradycardia, unspecified] Episodic Conduction disorders (20 sources) Mobitz type II atrioventricular block; Translations: [Atrioventricular block, second degree] Onset: 11-03-2019 Chronic Comment on above: Results [employer] Coronary atherosclerosis and other heart disease (20 sources) 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; Translations: [Coronary arteriosclerosis] Onset: 07-21-2011 07-16-2015 Chronic Disorders of lipid metabolism (16 sources) Hyperlipidemia; Translations: [Hyperlipidemia, unspecified] Onset: 07-22-2011 07-22-2011 Chronic E Codes: Fall (5 sources) Fall; Translations: [Unspecified fall, initial encounter] 04-15-2024 Episodic Open wounds of extremities (12 sources) Laceration of left ring finger; Translations: [Laceration without foreign body of left ring finger without damage to nail, initial encounter] 04-19-2021 Episodic Other aftercare (7 sources) Patient encounter status; Translations: [Other detention (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 therapy] 09-14-2019 Episodic Other aftercare (5 sources) Long-term current use of drug therapy; Translations: [Other detention (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 therapy] 09-14-2019 Episodic Other connective tissue disease (9 sources) Foot pain; Translations: [Pain in left foot] 05-04-2022 Episodic Unclassified (1 source) Long-term drug therapy; Translations: [Other detention (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 therapy] Onset: 07-17-2011 07-17-2011 Unclassified (1 source) Other ventricular tachycardia; Translations: [Other ventricular tachycardia] Onset: 04-02-2025 Past or Other Problems Problem Classification Problem Date Documented Date Episodic/Chronic Abdominal pain (1 source) Generalized abdominal pain; Translations: [Generalized abdominal pain] Onset: 10-31-2024 Episodic Open wounds of extremities (6 sources) Laceration of right forearm; Translations: [Laceration without foreign body of right forearm, initial encounter] Onset: 05-01-2024 04-15-2024 Episodic Other aftercare (3 sources) Other 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 continuous churn (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 therapy; Translations: [Other buttermaker continuous churn (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 therapy] Onset: 07-17-2011 07-17-2011 Episodic Other diseases of kidney and ureters (1 source) Hydronephrosis with renal and ureteral calculous obstruction; Translations: [Hydronephrosis with renal and ureteral calculous obstruction] Onset: 11-08-2024 Episodic Other lower respiratory disease (8 sources) Dyspnea; Translations: [Shortness of breath] Onset: 07-17-2011 Resolved: 07-16-2015 07-16-2015 Episodic Other non-epithelial cancer of skin (2 sources) 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 Imaging Services [address] [place] [address] [id number] Abdomen Single View MR#: [id number] Acct: [id number] Name: FENG COLUNGA Rep #: [id number] : 1940 M 84 From: Javed Gar MD PCP: Dr. Manuel Simpson MD Status: REG CLI Study: Abdomen Single View Date of Exam: 03/20/25 Exam# [id number] Ordering Dr: Mike Dougherty MD PROCEDURE: ABDOMEN SINGLE VIEW 03/20/2025 REASON FOR EXAM: CALCULUS OF KIDNEY TECHNIQUE: Procedure Code: RADABD Modality: DX Procedure: ABDOMEN SINGLE VIEW COMPARISON: KUB, 07/21/2023. FINDINGS: The bowel gas pattern is nonobstructive. There is a 2.6 cm in diameter nodule with a calcified wall in the left mid abdomen shown by recent CT to be an area of fat necrosis in the mesentery. There are 2 x 3 mm calcifications projected over the left renal outline, 1 in the upper pole and 1 in the lower pole. 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 RAD/Abdomen Single View IMPRESSION: Left nephrolithiasis as described. Other findings as noted. Reading Location: [id number] CC: Dr. Manuel Simpson MD; Dr. Mike Dougherty MD Account Specialist: Signed Normal [facility] Abdomen/Pelvis without Conto n 03-20-2025 Abdomen/Pelvis without Cont [facility] Imaging Services [address] [place] [address] [id number] Abdomen/Pelvis without Cont MR#: [id number] Acct: [id number] Name: FENG COLUNGA Rep #: [id number] : 1940 M 84 From: Lamin Gardner MD PCP: Dr. Manuel Simpson MD Status: REG CLI Study: Abdomen/Pelvis without Cont Date of Exam: 01/05 Exam# [id number] Ordering Dr: Mike Dougherty MD PROCEDURE: ABDOMEN/PELVIS WITHOUT CONT 03/20/2025 REASON FOR EXAM: KIDENY STONE TECHNIQUE: Procedure Code: CTABDPEL Modality: CT Procedure: ABDOMEN/PELVIS WITHOUT CONT Noncontrast technique limits evaluation of the abdominal and pelvic viscera. Coronal and Sagittal reconstruction series were provided. One or more dose reduction techniques were used (e.g., Automated exposure control, adjustment of the mA and/or kV according to patient size, use of iterative reconstruction technique). RADIATION DOSE SUMMARY: CTDlvol: 7.7 mGy DLP: 382 mGycm COMPARISON: CT abdomen and pelvis without contrast 10/24/2024. FINDINGS: Lung bases: Bibasilar atelectasis. Patchy nodularity with reticulation within left lung base. Partially visualized pacer leads. Liver: Mild diffuse hepatic steatosis. Stable right hepatic lobe hypoattenuating lesion measuring 8 mm likely cyst., unchanged Gallbladder: Several calcified gallstones. Spleen: Pancreas: Adrenals: Kidneys: Nonobstructing right midpole renal calculus measuring 3 mm. Right midpole renal lesion measuring 1.8 cm. Additional hypo attenuating lesion within right lower pole measured 2.1 x 1.3 cm. There is 3 mm left midpole renal calculus. There is new left UVJ calculus measuring 8 mm. Bilateral nonspecific perinephric stranding. Bladder: Reproductive Organs: Enlarged prostate measuring 5.6 x 4.3 cm with scattered calcification. Bowel: Moderate hiatal hernia. Colonic diverticulosis without evidence of diverticulitis. Graxvbgx-hx-ouqmz stool burden. Appendix: The appendix is not identified. There is no inflammatory process identified in the right lower quadrant to suggest appendicitis. Lymph nodes: Redemonstration of calcified mesenteric lymph node within left upper quadrant measuring 2.5 x 2.1 cm, unchanged since prior study. Scattered mesenteric lymph nodes such as left upper quadrant lymph node measuring 6 mm (series 601/55) Vasculature: Mild diffuse atherosclerotic calcifications are noted. Peritoneum / Retroperitoneum: Mild bilateral perinephric stranding. Bones: Redemonstration of compression deformity of L3 vertebral body. CT/Abdomen/Pelvis without Cont IMPRESSION: There is new left UVJ calculus measuring 8 mm. There is mild right hydronephrosis. Additional bilateral nonobstructing renal calculi are visualized measuring up to 3 mm. Cholelithiasis without evidence of cholecystitis. Enlarged prostate with scattered calcification. Wpkfqvys-cg-smgvh stool burden. Colonic diverticulosis without evidence of diverticulitis. Reading Location: [id number] CC: Dr. Manuel Simpson MD; Dr. Mike Dougherty MD Account Specialist: Signed Normal [facility] Pacemaker Checkon 03-12-2025 Pacemaker Check [facility] [place] [address] Pacemaker Check Date of Service: 03/12/25 1645 MR#: [id number] Acct: [id number] Name: FENG COLUNGA Rep #: [id number] : 1940 From: Pauline Nieto Age/Sex: 84/M Location: [facility] Status: Signed Billing Codes PM Device Codes: 26403 PM Dev Prog Eval, Dual Assessment and Plan Assessment and Plan (1) Non-sustained ventricular tachycardia: Status: Acute Comment: Per Device Report 04/14/2023; (2) History of permanent cardiac pacemaker placement: Status: Chronic Comment: [employer], Model (3) Mobitz type 2 second degree atrioventricular block: Status: Chronic 03/12/25 1646 Date Pauline Milnercristhianpaul Signature: Date (if applicable) CC: Normal [facility] Discharge Instructionon 10-13 Discharge Instruction [facility] Medical Records Department [address] [place] [address] Instructions for Home/Discharge Instructions 11/03/24 0944 MR#: [id number] Acct: [id number] Name: FENG COLUNGA Rep #: [id number] : 1940 84 From: Mike Dougherty MD PCP: Dr. Manuel Simpson MD Status:REG [facility] Discharge Instructions Diet Discharge Diet: No restrictions DC O2, CPAP, BIPAP needs Home O2 Discharge instructions: No Dressing / Incision Discharge Activity: Return to Normal Activity and May Not Drive (while taking narcotic pain medications.) Dressing / Incision Call your doctor if you observe: Fever of 101 or Higher Follow Up Care Please Follow Up With: Mike Dougherty MD When: Call [phone] for an appointment Test Results: Test results from this visit will be discussed in further detail at your follow-up appointment, if applicable. Discharge Plan Admission Primary Reason for Your Visit: Laser stone balloon dilation of stricture Attending Provider: Mike Dougherty Primary Care Provider: Manuel Simpson Instructions Print Language: Uruguayan Discharge Orders/Prescriptions Prescriptions: New ibuprofen 600 mg tablet 600 mg PO Q6H PRN (Reason: pain) Qty: 20 0RF acetaminophen 500 mg capsule 500 mg PO Q4H PRN (Reason: pain) Qty: 20 0RF phenazopyridine [Pyridium] 100 mg tablet 100 mg PO TID PRN (Reason: pain) Qty: 14 0RF Continued aspirin [Adult Low Dose Aspirin] 81 mg tablet,delayed release (DR/EC) 81 mg PO DAILY multivitamin Tablet 1 tab PO QDAY famotidine [Pepcid] 20 mg tablet 20 mg PO QDAY melatonin 10 mg capsule 10 mg PO QHS magnesium oxide 400 mg magnesium capsule 400 mg PO DAILY rosuvastatin 10 mg tablet See Rx Instructions .ROUTE .COMPLEX Qty: 90 3RF Dose Instruction: TAKE 1 TABLET DAILY Rx Instructions: TAKE 1 TABLET DAILY metoprolol succinate 25 mg tablet extended release 24 hr 25 mg PO DAILY Qty: 90 3RF Referrals / Follow Up: Manuel Simpson MD [Primary Care Provider] - Mike Dougherty MD [Med Staff - Active Staff] - Disposition Disposition (needs filled in before D/C Order can be placed): Home, Self Care 11/03/24 0944 Mike Dougherty MD CC: Dr. Manuel Simpson MD Signed [facility] MR/POSTOP.[facility] 11-03-2024 MR/POSTOP.[facility] Medical Records Department [address] [place] [address] Anesthesia Postop Eval I 11/03/24 1138 MR#: [id number] Acct: [id number] Name: FENG COLUNGA Rep #: [id number] : 1940 84 From: Shine Linda PCP: Dr. Manuel Simpson MD Status:REG SDC Y Race: C Location: [place] [address] Anesthesia: Postop Eval I Current Vital Signs Temperature: 97.6 F Pulse Rate: 50 (V Paced) Blood Pressure: 154/86 Respiratory Rate: 16 Pulse Ox: 98 Oxygen Delivery Method: Room Air Assessment Airway patent: Yes Spontaneous unlabored respirations: Yes Mental status: Awake and Calm nausea: No Vomiting: No Anesthesia Complication: No Fluid Hydration Crystalloid volume administer (ml): 600 Total IV fluid infused: 600 Progress Note Anesthesia document: Postop Eval 1 completed: Yes 11/03/24 1139 Date Shine Milnerignpaul Signature: Date CC: Signed Normal [facility] MR/[id number] 11-03-2024 MR/POSTOPAN2 [facility] Medical Records Department [address] [place] [address] Anesthesia Postop Eval II 11/03/24 1255 MR#: [id number] Acct: [id number] Name: FENG COLUNGA Rep #: [id number] : 1940 84 From: Rasta Bailey MD PCP: Dr. Manuel Simpson MD Status:REG [facility] Y Race: C Location: [place] [address]- Anesthesia Postop Eval I Sum Postop Eval Completion status Anesthesia document: Postop Eval 1 completed: Yes Anesthesia Postop Eval I Summary Anesthesia Postop Eval I Summary: Anesthesia Postop Eval I: Assessment Summary Airway patent Yes 11/03/24 11:39 OSTEOPATHIC PHYSICIAN.MDOT Spontaneous unlabored Yes 11/03/24 11:39 OSTEOPATHIC PHYSICIAN.MDOT respirations Mental status Awake,Calm 11/03/24 11:39 OSTEOPATHIC PHYSICIAN.MDOT nausea No 11/03/24 11:39 OSTEOPATHIC PHYSICIAN.MDOT Vomiting No 11/03/24 11:39 OSTEOPATHIC PHYSICIAN.MDOT Anesthesia Postop Eval I: Fluid Summary Crystalloid volume administer 600 11/03/24 11:39 OSTEOPATHIC PHYSICIAN.MDOT (ml) Colloids volume administered ( ml) Blood Product volume administered (ml) Total IV fluid infused 600 11/03/24 11:39 OSTEOPATHIC PHYSICIAN.MDOT Anesthesia Postop Eval I: Summary Notes Anesthesia Complication No 11/03/24 11:39 OSTEOPATHIC PHYSICIAN.MDOT Anesthesia Complication Comment: Post-operative progress note Anesthesia: Postop Eval II Evaluation Mental status: Awake Pain Level: 0 nausea: No Vomiting: No 11/03/24 1255 Date Rasta Navarrete Signature: Date CC: Signed Normal [facility] Operative Reporton 5 Operative Report [facility] Medical Records Department [address] [place] [address] Operative Report 11/03/24 1126 MR#: [id number] Acct: [id number] Name: FENG COLUNGA Rep #: [id number] : 1940 84 From: Mike Dougherty MD PCP: Dr. 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 and right kidney stone Post-Operative Diagnosis: The same Surgery/Procedure Performed: Cystoscopy, retrograde pyelogram, balloon dilation of ureteral stricture, right ureteroscopy laser lithotripsy of stone and right stent placement press assistant and feeder: No Type of Anesthesia: General RN Documented Start/Stop Times: Operation Date: 11/03/24 10:45 Case Time Into Pre-Op 11/03/24 08:52 Anesthesia Start 11/03/24 10:38 Into Room 11/03/24 10:38 Out of Pre-Op 11/03/24 10:38 Procedure Start 11/03/24 10:57 Procedure Start Time: 10:57 Procedure Stop Time: 11:27 Select all DRAINS/GRAFTS/IMPLANT S that apply: None (right stent) and Drains Drain details: 6x 26 cm stent Estimated Blood Loss: 0 Specimen collected: No Description of surgery: This is an 84-year-old gentleman has a history of kidney stones long time ago he had a stone impacted in the proximal right ureter underwent ureteroscopy and laser lithotripsy. Since then he has had recurrent stricture at the same site over and over several years ago I dilated this with a balloon dilator he came back to the office again CAT scan again demonstrated right hydronephrosis down to the area of his stricture in the proximal ureter. Renal taken back today to do a balloon dilation laser lithotripsy of the stone fragment and stent placement but I explained to the patient and the family very likely that the stricture will not cure with balloon dilation and I have a referral already pending to a reconstructive specialist up in [place] to see if they can offer him a reconstructive option to get rid of the ureteral stricture Patient was taken back to the operating room after smooth induction of anesthesia he was placed in dorsolithotomy position. Penis and testicles were prepped and draped in usual fashion went into the bladder with a 21 Luxembourger rigid cystourethroscope he had a large obstructive prostate inside the bladder I cannulated the right ureteral orifice with a Glidewire advanced it up went all the way up to the kidney I then pulled it back and did a retrograde pyelogram with a Pollick catheter and images were saved on x-ray he can see a stricture in the mid proximal ureter appeared to be short in length I then advanced a 15 Luxembourger balloon dilator and insufflated the balloon dilator up to 20 mic of pressure I first there was still the stricture but then with time the stricture went away and we waste went away and then I went up with a flexible ureteroscope I could see the stricture is very tense very dense was able to get through this ureteroscope and then above this and found a stone and lasered the stone little tiny pieces perform laser lithotripsy and the stone that should pieces should hopefully pass there were lasered at the dust using the thulium laser fiber with 2 and 200 ???m laser on dusting settings after this was done then I worked my way down the ureter again he could see the strictured area proximal ureter I do not think this is getting heal spontaneously over stent has not healed before. So I left the stent in but he has a referral to go to [place] to getting a second opinion on how to manage his ureteral stricture probably reconstructive procedure is necessary. Patient bladder was drained he will follow-up in my office but will put a referral but he will follow-up in my office Surgical Findings: Dense stricture in the mid proximal ureter right ureter Complications Complications: No Admit VTE Documentation VTE Present on Admission: No VTE Mechan Device Prophylaxis: SCD's VTE Pharm Prophylaxis ordered?: No 11/03/24 1130 Cosigner Signature (if applicable): CC: Dr. Manuel Simpson MD; Dr. Mike Dougherty MD Signed Normal [facility] MR/PATMichael 10-31-2024 MR/PAT.[facility] Medical Records Department [address] [place] [address] PAT - Anesthesia 10/31/24 1550 MR#: [id number] Acct: [id number] Name: FENG COLUNGA Rep #: [id number] : 1940 84 From: Rasta Bailey MD PCP: Dr. Manuel Simpson MD Status:PRE SDC Y Race: C Location: [facility] Pre-Assessment Diagnosis/Proposed Procedure Planned Operative Procedure(s): (R) Cysto,Ureteroscopy,Re tro,Dil,Laser,Stent Anesthesia History Anesthesia History - speech scientist: Anesthesia History - speech scientist Hx Hospitalization No 10/31/24 15:31 Any Problems With Anesthesia No 10/31/24 15:31 Cholinesterase deficiency No 10/31/24 15:31 You/Your Family Experience No 10/31/24 15:31 fever (hyperthermia) with Relationship Recent Exposure to Contagious No 03/14/18 11:55 Disease Does patient have nerve No 10/31/24 15:31 stimulator Patient instructed to have device shut off --Does patient have Pacemaker or ICD? When Was Last Pacemaker Check QUESTION #4 FULL TEXT: You/Your Family Experience fever (hyperthermia) with Anesthesia Last Oral Intake Last Oral intake: Last Oral Intake NPO since Meds taken in AM with sips of water? Meds patient instructed to take am of surgery PONV PONV - speech scientist: PONV - speech scientist Female No 10/31/24 15:31 HX of Motion Sickness No 10/31/24 15:31 HX of N/V After Surgery No 10/31/24 15:31 Non-Smoker Yes 10/31/24 15:31 Duration of Surgery greater No 10/31/24 15:31 than 60 minutes Number of Risk Factors 1 10/31/24 15:31 PONV Score Low Risk 10/31/24 15:31 Height Weight Height Weight: Anesthesia: Height Weight Height 5 ft 11 in 09/12/24 07:56 Respiratory Assessment Respiratory Assessment - speech scientist: Respiratory Tract Infection Hx - speech scientist Hx Respiratory Tract Infection No 10/31/24 15:31 STOP Sleep Apnea STOP Sleep Apnea - speech scientist: STOP Sleep Apnea - speech scientist Hx Hypertension No 10/31/24 15:31 Hx Sleep Apnea No 10/31/24 15:31 CPAP No 10/31/24 15:31 BIPAP Do you snore loudly (louder No 10/31/24 15:31 than talking or can be heard Do you often feel tired/ No 10/31/24 15:31 fatigued/ sleepy during daytime? Has anyone observed you stop No 10/31/24 15:31 breathing during sleep? STOP Results Negative 10/31/24 15:31 QUESTION #5 FULL TEXT : Do you snore loudly (louder than talking or can be heard through closed doors)? Tobacco Use History Tobacco Use History - speech scientist: Tobacco Use History - speech scientist Tobacco Use Smoking Status Never smoker 10/31/24 15:31 Hx Tobacco Use No 10/31/24 15:31 Years Smoking Packs Smoked per Day Smoking Cessation Date was within the last 15 years Hx Smoking Cessation Date Hx Smoking Cessation No 10/31/24 15:31 Counseling Hematologic Medial History Hematologic Hx - speech scientist: Hematologic Medical Hx - automatic embroidery machine tender Hx of Blood Transfusion No 10/31/24 15:31 Hx of Transfusion in last 3 No 10/31/24 15:31 Months Date of Last Transfusion (if within last 3 months) Ever experience any problems No 10/31/24 15:31 with transfusion(s)? Specify any problems Hx of Preganancy in last 3 N/A 10/31/24 15:31 Months Nurse Filling Out Transfusion VCHRISTIN 10/31/24 15:31 Questions: Date: 10/31/24 10/31/24 15:31 Time: 15:31 10/31/24 15:31 Patient unable to answer at this time (ie. confused, unrespo /Reproductio n History /Reproductiv e History - speech scientist: /Reproductiv e Hx- speech scientist Hx Now Gestational Age (in weeks): EDC: Hx Hx Para Hx Section SAB PFSH Medical History (Updated 10/31/24 @ 15:30 by Sofia Vergara) Wears hearing aid Wears glasses Cancer Arthritis Excessive bleeding Injury of back Gastric reflux Non-smoker Shortness of breath on exertion History of edema History of echocardiogram History of stress test Cardiology follow-up encounter History of irregular heartbeat Non-sustained ventricular tachycardia Mobitz type 2 second degree atrioventricular block Nonobstructive atherosclerosis of coronary artery Osteoarthritis BPH (benign prostatic hyperplasia) Urinary calculi Renal calculi Hyperlipidemia Sinus bradycardia Home Medications ???Medication ???Instructions ???Recorded ???Last Taken ???Type aspirin 81 mg tablet,delayed 81 mg PO DAILY 06/10/21 10/10/24 H istory release (Adult Low Dose Aspirin) rosuvastatin 10 mg tablet See Rx Instructions .Route 5 Unknown Rx .COMPLEX #90 tabs metoprolol succinate 25 mg 25 mg PO (more content not included)... Normal [facility] Abdomen/Pelvis without Conto n 10-24-2024 Abdomen/Pelvis without Cont [facility] Imaging Services [address] [place], [place] [address] Abdomen/Pelvis without Cont MR#: [id number] Acct: [id number] Name: FENG COLUNGA Rep #: [id number] : 1940 M 84 From: Zen casey MD PCP: Dr. Manuel Simpson MD Status: REG CLI Study: Abdomen/Pelvis without Cont Date of Exam: 10/12 09/05 Exam# [id number] Ordering Dr: Mike Dougherty MD PROCEDURE: ABDOMEN/PELVIS WITHOUT CONT 10/24/2024 REASON FOR EXAM: ABD PAIN Right flank pain. History of kidney stones. TECHNIQUE: Abdomen and pelvis CT without intravenous contrast. Noncontrast technique limits evaluation of the abdominal and pelvic viscera. Coronal and Sagittal reconstruction series were provided. One or more dose reduction techniques were used (e.g., Automated exposure control, adjustment of the mA and/or kV according to patient size, use of iterative reconstruction technique). PATIENT PREPARATION: Per protocol ORAL CONTRAST TYPE: None. CT DL volume: 6.72 mGy. DLP: 362.51 COMPARISON: Comparison is made with prior study dated December 23, 2021. FINDINGS: Lung bases: Mild dependent atelectasis dual-chamber pacemaker is seen in the heart. Liver: Stable 4.6 mm cyst in the lateral aspect of the right lobe of the liver in its midportion. Gallbladder: Several calcified gallstones. Spleen: Normal size. Stable 2.3 cm 2 cm calcified mesenteric lymph node in the left upper quadrant. Pancreas: Normal size. No surrounding inflammation. Adrenals: Unremarkable Kidneys: Moderate-sized right hydronephrosis and hydroureter due to a 3 mm calculus in the midportion of the right ureter. Nonobstructive calculus in the upper pole calyx of the right kidney. Nonobstructive calculus in the lower pole of the left kidney measuring 1.1 cm. Nonspecific bilateral perinephric stranding. Bladder: Mild degree of diffuse bladder wall thickening. Prostatic enlargement with indentation of the bladder base. The prostate measures 4.4 cm by 4.6 cm. Bowel: Colonic diverticulosis without diverticulitis.. Moderate-sized hiatal hernia. Appendix: The appendix is not identified. There is no inflammatory process identified in the right lower quadrant to suggest appendicitis. Lymph nodes: Unremarkable. Vasculature: Mild diffuse atherosclerotic calcifications are noted. Peritoneum / Retroperitoneum: Unremarkable Bones: Degenerative changes of the spine. CT/Abdomen/Pelvis without Cont IMPRESSION: Moderate degree of right hydronephrosis due to a 3 mm calculus in the midportion of the right ureter. Nonobstructive bilateral intrarenal calculi and nonspecific bilateral perinephric stranding. Multiple gallstones. Sigmoid diverticulosis. Prostatic hypertrophy with indentation of the bladder base. Bladder wall thickening. Reading Location: [facility] CC: Dr. Manuel Simpson MD; Dr. Mike Dougherty MD Account Specialist: Signed Normal [facility] Cardiology Visit Reporton Cardiology Visit Report [facility] [address] [place], [place] [address] OFFICE VISIT Date of Service: 09/12/24 MR#: [id number] Acct: [id number] Name: FENG COLUNGA Rep #: [id number] : 1940 Provider: Dr. Pardeep Mason MD Age/Sex: 84/M Location: [facility] Status: Signed HPI HPI History of Present Illness Details: Feng Colunga is an 84-year-old man with a history of minimal coronary artery disease status post cardiac catheterization in 2013. He had presented with some occasional dizzy spells a Holter monitor had demonstrated a long pause of 3.3 seconds which was symptomatic and he went on to undergo a permanent pacemaker implantation in October 2019. He has done well since then. His last echocardiogram in August 2019 demonstrated an ejection fraction of 60% with stage I diastolic dysfunction his blood pressure has been well controlled. His last echocardiogram was in August 2019 demonstrating an ejection fraction of 60%. From a cardiac standpoint, patient is doing well. He does not have any chest discomfort/heaviness/ tightness. His exercise tolerance is stable for his age. He recently ran a marathon over the course of a weekend without issues. He does not have any worsening symptoms of shortness of breath. He denies any PND. He does not have any orthopnea. He does not have any symptoms of congestive heart failure. He does not have any palpitations that he is aware of. He does not have any lightheadedness or dizziness. He does not have any near-syncope or syncope. He does not have any lower extremity edema. He does not have any symptoms of claudication. Intake Vital Signs 07/27/23 08:25 04/07/24 21:07 09/12/24 07:56 Height 5 ft 11 in 5 ft 11 in 5 ft 11 in Weight: 164 lb BMI 22.8 BP 117/75 Blood Pressure Location Lt brachial Position Sitting Respiration 16 Pulse 50 L Pulse Source Monitor Intake Visit Reasons: 1 Y FU Lead Applier Required: No Accompanied by: Self Is patient in pain?: No Allergies No Known Allergies Allergy (Verified 09/12/24 07:57) Medications ???Medication ???Instructions ???Recorded ???Confirmed ???Type aspirin 81 mg tablet,delayed 81 mg PO DAILY 06/10/21 09/12/24 H istory release (Adult Low Dose Aspirin) rosuvastatin 10 mg tablet See Rx Instructions .Route 5 09/12/24 Rx .COMPLEX #90 tabs metoprolol succinate 25 mg 25 mg PO DAILY #90 tabs 09/05/24 0 09/12/24 Rx tablet,extended release 24 hr famotidine 20 mg tablet (Pepcid) 20 mg PO QDAY 09/12/24 09/12/24 Hi story multivitamin 1 tab PO QDAY 09/12/24 09/12/24 Hi story Have you fallen in the past year?: Yes (hx of drop foot) PFSH Medical History Non-sustained ventricular tachycardia Mobitz type 2 second degree atrioventricular block Nonobstructive atherosclerosis of coronary artery Osteoarthritis BPH (benign prostatic hyperplasia) Urinary calculi Renal calculi Hyperlipidemia Sinus bradycardia Surgical History S/P ureteral stent placement 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) History of cataract extraction (07/12/19) History of left inguinal hernia repair History of colonoscopy History of right inguinal hernia repair History of cystoscopy History of left heart catheterization (11/03/13) Family History Father , age 71 COPD (chronic obstructive pulmonary disease) Brother Cancer brain tumor Social History Smoking Status: Never smoker alcohol intake: current alcohol intake frequency: holidays/special occasions only substance use type: does not use caffeine: Yes Type: carbonated beverages Number of servings: 1 and tea Number of servings: 1 ROS Const Const: Negative for fatigue, weakness, headache(s), daytime sleepiness or difficulty sleeping ENT ENT: Positive for dizziness (with position changes ); Negative for headache(s) or Nosebleed/epistaxis Cardio Chest Pain: No Palpitations: No Edema: Bilateral (BLE trace at times ) Resp Respiratory: Positive for SOB with activity (at times ); Negative for SOB at rest, SOB orthopnea SOB lying down or Cough GI GI: Negative nausea, vomiting or heartburn Neuro Neuro: Positive for dizziness (with position changes ); Negative for lightheadedness, near syncope, headache(s) or weakness Endo Endo: Negative for fatigue Cardiology Exam Const Appearance: cooperative, healthy appearing, no acute distress, well developed and well groomed Nutritional Appearance: average body habitus and well nourished Orientation: alert, awake and oriented x3 Head Head: normal to inspection, normocephalic (more content not included)... Normal [facility] S-100 (add)on 05-17-2024 S-100 (add) - -------- Patient Age/Sex Location Account Attending Physician -------- [facility]ENG [id number]. Manuel Simpson MD -------- Specimen: [id number] Received: 05/19/24 Status: VAZQUEZ Houser Num: [id number] Spec Type: IMMUNO Subm Dr: Dr. Manuel Simpson MD PHYSICIAN INSTITUTION [place] [address] SPECIMEN INFORMATION: Tissue Source: Left back Clinical Info: Squamous cell carcinoma Specimen Number: [id number] CPT code: 40537,32750h7 METHODOLOGY: Deparaffinized sections of prefer/formalin-fixed tissue or PAP/DQ stained slides are incubated with monoclonal/polyclonal antibodies/oligonucle otide probes. Localization is made via biotin free immunoperoxidase method. Appropriate controls are performed and reacted as expected. Results on target cell population are indicated in the following table: RESULTS: ANTIBODY / CLONE RESULT AE1-3 (AE1/AE3/PCK26) positive Vimentin (V9) negative CD68 (KP-1) positive, focal Melan A (A103) positive, focal S-100 (4C4.9) negative, focal CALRET (polyclonal) negative CK5-6 (D5 1684) positive P40 (BC28) positive P53 (DO-7) positive, missense type Ki-67 (30-9) positive, low These tests were developed and their performance characteristics determined by [facility]. They may not have been cleared or approved by the U.S. Food and Drug Administration. The FDA has determined that such clearance or approval is not necessary. The above immunohistochemical/d ualISH markers are ordered and reviewed by the Pathologist. INTERPRETATION: Left arm, excision: Actinic keratosis with focal moderate atypia. Consistent with benign focal mild melanocytic hyperplasia. AM. 05/22/2024 Signed (signature on file) Dr. Wojciech Odom, DO 05/22/24 1325 -------- Normal [facility] Comment on above: Performed By: #### P s100. #### [facility] [address] [place], [place], [address] Surgery Specimen Level Divya 05-17-2024 Surgery Specimen Level IV -------- Patient Age/Sex Location Account Attending Physician -------- [facility]ENG COLUN[facility] [id number] Dr. Manuel Simpson MD -------- Specimen: [id number] Received: 05/17/24 Status: VAZQUEZ Houser Num: [id number] Spec Type: Lesion Subm Dr: Dr. Manuel Simpson MD HEADER OPERATION: Excision back PRE-OP DIAGNOSIS: Squamous cell carcinoma TISSUE SUBMITTED: Neg- for margins -------- MICROSCOPIC DIAGNOSIS Skin lesion of back, excision: Actinic change with focal moderate atypia. Focal benign mild melanocytic hyperplasia. Extensive solar elastosis. Focal benign histiocytic proliferation suggestive of previous procedure. See comment. AM.mr 05/19/2024 COMMENT Immunohistochemistry ([id number]) supports the above diagnosis. Clinical correlation is suggested. MICROSCOPIC DESCRIPTION Slides are reviewed. GROSS DESCRIPTION Received in fixative is one container labeled with the patient's name and designated "Left back." The specimen consists of an ellipse of light russell excised skin measuring 1.5 x 1.0 x 0.8cm. The specimen is inked, serially sectioned and totally submitted in one cassette. AM. 05/18/2024 TC:? CPT:86618 -------- Patient Age/Sex Location Account Attending Physician -------- FENG COLUNGA 83/M [facility] [id number] Dr. Manuel Simpson MD -------- Signed (signature on file) Dr. Wojciech Odom DO 05/22/24 1022 -------- Normal [facility] Comment on above: Performed By: #### P EFREN #### [facility] [place], [address] Emergency Department Summary on 04-07-2024 Emergency Department Summary [facility] Medical Records Department [address] [place] [address] Emergency Department Summary 04/07/24 MR#: [id number] Acct: [id number] Name: FENG COLUNGA Rep #: [id number] : 1940 83 From: Jose Paul PCP: Dr. Manuel Simpson MD Status:DEP ER Location: ED HPI History of Present Illness Chief Complaint: Laceration Informant: patient Narrative Narrative: Laceration right forearm 3 PM after tripped and fell using a leaf blower. Some baby aspirin. Tetanus 2020 and records here. No head injuries. Bleeding uncontrolled therefore came here. No paresthesias. No loss of function. Tetanus Immunization: <5 years [facility] Medical History Non-sustained ventricular tachycardia Mobitz type 2 second degree atrioventricular block Nonobstructive atherosclerosis of coronary artery Osteoarthritis BPH (benign prostatic hyperplasia) Urinary calculi Renal calculi Hyperlipidemia Sinus bradycardia Home Medications ???Medication ???Instructions ???Recorded ???Last Taken ???Type aspirin 81 mg tablet,delayed 81 mg PO DAILY 06/10/21 Unknown History release (Adult Low Dose Aspirin) rosuvastatin 10 mg tablet See Rx Instructions .Route 06/10/23 Unknown Rx .COMPLEX #90 tabs metoprolol succinate 25 mg 25 mg PO DAILY #90 tabs 07/27/23 Unknown Rx tablet,extended release 24 hr Allergy/AdvReac Type Severity Reaction Status Date / Time No Known Allergies Allergy Verified 04/07/24 21:07 Family History Father , age 71 COPD (chronic obstructive pulmonary disease) Brother Cancer brain tumor Surgical History S/P ureteral stent placement 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) History of cataract extraction (07/12/19) History of left inguinal hernia repair History of colonoscopy History of right inguinal hernia repair History of cystoscopy History of left heart catheterization (11/03/13) Social History Smoking Status: Never smoker alcohol intake: current alcohol intake frequency: holidays/special occasions only substance use type: does not use caffeine: Yes Type: carbonated beverages Number of servings: 1 and tea Number of servings: 1 ROS ROS ED Constitutional Constitutional ED: Denies fever(s) Cardiovascular Cardiovascular: Denies chest pain Musculoskeletal Musculoskeletal: Denies back pain or neck pain Integumentary Reports other Neurologic Neurologic: Denies paresthesias or weakness EXAM Physical Exam Const Vital Signs: 04/07/24 21:07 Temperature 98 F Temperature Source Temporal Pulse Rate 53 L Respiratory Rate 18 Blood Pressure 135/105 H Blood Pressure Mean 115 Pulse Ox 97 Oxygen Delivery Method Room Air Positive well nourished and well developed Constitutional Narrative: GCS 15. General Appearance ED: well developed and NAD HEENT Reports moist mucous membranes HEENT Narrative: Hearing aids bilaterally. normocephalic and atraumatic Eyes EOMs intact bilaterally and conjunctivae normal General Eye ED: Yes normal appearance of both eyes Neck full ROM, no lymphadenopathy and supple General: Negative for tenderness Chest Wall Chest: Negative for tenderness Resp normal respiratory effort and normal air movement Effort and Inspection: symmetric chest movement; Negative for respiratory distress Cardio regular rate, regular rhythm and no murmurs Peripheral Pulses: pulses 2+ throughout GI normal to inspection, nondistended, normoactive bowel sounds and non-tender Palpation: Negative for guarding or rebound tenderness present Back/Spine no CVA tenderness and no thoracic nor lumbar tenderness Extremity Extremity Narrative: Full range of motion upper extremities shoulders elbows and wrist. Right forearm proximal medial dorsal aspect flap laceration 4 cm. Bleeding controlled with pressure. No pain of the olecranon. General Extremety ED: Negative for edema or tenderness General Extremity: Negative for edema Neuro oriented x3 and no sensory deficits noted Sensorium / Orientation: awake and alert Skin Skin Narrative: See above MDM MDM MDM Narrative Medical decision making narrative: Interventions / MDM: Differential diagnosis: Fall, forearm laceration Diagnosis considered but do not suspect: No visualized foreign body. My EKG interpretation: N/A Imaging independently reviewed and interpreted by myself: N/A External documents reviewed: N/A Test considered but not ordered:N/A ED course: Patient skin laceration there is no bony tenderness. Tetanus is up-to-date. Will prep for suture repair. Procedu (more content not included)... Normal [facility] Surgery Specimen Level Divya 04-07-2024 Surgery Specimen Level IV -------- Patient Age/Sex Location Account Attending Physician -------- FENG COLUNGA 83/M [facility] [id number] Dr. Manuel Simpson MD -------- Specimen: [id number] Received: 04/07/24 Status: VAZQUEZ Housre Num: [id number] Spec Type: Lesion Subm Dr: Dr. 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 See comment. 04/11/2024 COMMENT Lesion also shows overlying cutaneous horn. Clinical correlation and appropriate follow up are necessary. MICROSCOPIC DESCRIPTION Slides are reviewed. GROSS DESCRIPTION Received in fixative is one container labeled with the patient's name and designated "Back." The specimen consists of a piece of russell-white skin measuring 0.6 x 0.3 x 0.4cm. The entire specimen is submitted in one cassette. 04/10/2024 TC:0 CPT:60715 -------- Patient Age/Sex Location Account Attending Physician -------- [id number]. Manuel Simpson MD -------- Signed (signature on file) Dr. Gopi Echols MD 04/11/24 1233 -------- Normal [facility] Comment on above: Performed By: #### P SUIV #### [facility] [address] [place], [place], [id number] Absolute lymphocyte countOrd ered By: Omer Simpson on 07-21-2023 Lymphocytes Auto (Unsp spec) [#/Vol] 0.71 10*3/uL 0.83-4.51 [facility] Automated lymphocyte count a s percentage of total leukocytesOrdered By: Omer Simpson on 07-21-2023 Lymphocytes/100 WBC Auto (Unsp spec) 10.7 % 19-41 [facility] Basophil percentageOrdered B y: Omer Simpson on 07-21-2023 Basophils/100 WBC (Bld) 0.3 % 0-1 [facility] Bilirubin [Mass/Vol] 0.50 mg/dL 0.20-1.00 [facility] Comment on above: For patients on eltr ombopag therapy, use of Dimension Lawler TBIL is not recommended. Chloride [Moles/Vol] 109 mmol/L 98-107 [facility] Eosinophils/100 WBC (Bld) 1.4 % 0-5 [facility] Glucose [Mass/Vol] 89 mg/dL 74-106 [facility] Hemoglobin (Bld) [Mass/Vol] 12.7 g/dL 13.0-16.5 [facility] Monocytes/100 WBC (Bld) 8.9 % 0-10 [facility] Neutrophils (Bld) [#/Vol] 5.2 10*3/uL 2.0-7.7 [facility] Neutrophils/100 WBC (Bld) 78.2 % 47-70 [facility] Potassium [Moles/Vol] 3.4 mmol/L 3.5-5.1 [facility] Protein [Mass/Vol] 6.8 g/dL 6.4-8.2 [facility] Sodium [Moles/Vol] 138 mmol/L 136-145 [facility] WBC (Bld) [#/Vol] 6.6 10*3/uL 4.4-11.0 [facility] Determination of erythrocyte mean corpuscular volume (MCV)Ordered By: Omer Simpson on 07-21-2023 MCV (RBC) [Entitic vol] 91.2 fL 80-94 [facility] Erythrocyte distribution wid th ratioOrdered By: Omer Simpson on 07-21-2023 Erythrocyte distribution width (RBC) [Ratio] 12.9 % 11.6-14.6 [facility] Erythrocyte distribution wid th standard deviationOrdered By: Omer Simpson on 07-21-2023 Erythrocyte distribution width (RBC) [Entitic vol] 42.6 fL 35.1-43.9 [facility] Hematocrit Auto (Bld) [Volum e fraction]Ordered By: Omer Simpson on 07-21-2023 Hematocrit (Bld) [Volume fraction] 39.2 % 40-54 [facility] Immature granulocytes/100 WB C Auto (Bld)Ordered By: Omer Simpson on 07-21-2023 Immature granulocytes/100 WBC (Bld) 0.500 % 0.0-0.9 [facility] Comment on above: IG% - Immature Granu locytes (promyelocytes, myelocytes and metamyelocytes) > 1% indicates that a LEFT SHIFT is Present. Laboratory - Chemistry and C hemistry - challengeOrdered By: Omer Simpson on 07-21-2023 Albumin/Globulin [Mass ratio] 0.8 {ratio} 0.9-2.4 [facility] ALP [Catalytic activity/Vol] 76 U/L 45-117 [facility] ALT [Catalytic activity/Vol] 31 U/L 16-61 [facility] CO2 [Moles/Vol] 25.0 mmol/L 21.0-32.0 [facility] Globulin (S) [Mass/Vol] 3.7 g/dL 2.2-4.2 [facility] Urea nitrogen/Creatinine [Mass ratio] 19.7 mg/mg 10-20 [facility] Laboratory - Hematology and Cell countsOrdered By: Omer Simpson on 07-21-2023 MCH (RBC) [Entitic mass] 29.5 pg 27.0-32.0 [facility] MCHC (RBC) [Mass/Vol] 32.4 g/dL 32-36 [facility] Nucleated RBC/100 WBC (Bld) [Ratio] 0 % 0-5 [facility] Platelet mean volume (Bld) [Entitic vol] 9.6 fL 6.2-12.0 [facility] Platelets (Bld) [#/Vol] 162 10*3/uL 150-450 [facility] No Panel InformationOrdered By: Omer Simpson on 07-21-2023 Estimated GFR (MDRD) Amer 70 mL/min >60 [facility] Comment on above: GFR Calc Estimated GFR (MDRD) Non-Af Amer 58 mL/min >60 [facility] Comment on above: Non- GFR Calc RBC Auto (Bld) [#/Vol]Ordere d By: Omer Simpson on 07-21-2023 RBC (Bld) [#/Vol] 4.30 10*6/uL 4.6-6.2 [facility] Serum or plasma calcium lee urement (mass/volume)Ordered By: Omer Simpson on 07-21-2023 Calcium [Mass/Vol] 8.9 mg/dL 8.5-10.1 [facility] Serum or plasma creatinine m easurement (mass/volume)Ordered By: Omer Simpson on 07-21-2023 Creatinine [Mass/Vol] 1.27 mg/dL 0.70-1.30 [facility] Comment on above: The validity of the calculated GFR & GFRAA in patients over 70 years has not been determined. Clinical correlation is essential. Serum or plasma urea nitroge n measurement (mass/volume)Ordered By: Omer Simpson on 07-21-2023 Urea nitrogen [Mass/Vol] 25 mg/dL 7-18 [facility] Thin prep Papanicolaou smear with manual screeningOrdered By: Omer Simpson on 07-21-2023 Thin prep Papanicolaou smear with manual screening 3.1 g/dL 3.2-5.0 [facility] Thin prep Papanicolaou smear with manual screening 27 U/L 15-37 [facility] Thin prep Papanicolaou smear with manual screening 4 5-15 [facility] Basophil percentageon 2021 Creatinine [Mass/Vol] 1.4 mg/dL 0.70-1.30 [facility] Work Phone: Laboratory - Chemistry and C hemistry - challengeon 12-23-2021 GFR/1.73 sq M.predicted among non-blacks MDRD (S/P/Bld) [Vol rate/Area] 53.0000 mL/min/{1.73_m2} >60 [facility] Work Phone: Laboratory - Microbiology an d Antimicrobial susceptibilityon 10-07-2021 SARS-CoV-2 (COVID-19) RNA VARGHESE+probe Ql (Unsp spec) Not detected Not Detect [facility] Work Phone: Comment on above: Normal Reference Ran ge: Not DetectedMethod:(RT-PCR) real-time reverse transcriptase PCRLuminex JASMIN Instrument*The Food and Drug Administration (FDA) has issued an Emergency Use Authorization (EAU) for the JASMIN SARS-CoV-2 Assay for the rapid detection of the virus that causes COVID-19. This test has been validated, but the FDAs independent review of this validation is pending.*Negative results do not preclude infection and should not be used as the sole basis for treatment or patient management. Optimum specimen types and timing for peak viral levels during infections caused by SARS-CoV-2 have not been determined. Collection of multiple specimens from the same patient may be necessary to detect the virus. The possibility of a false negative result should be considered if the patient has clinical presentation or has had recent exposure. Basophil percentageon 2021 Chloride [Moles/Vol] 108 mmol/L 98-107 [facility] Work Phone: Glucose [Mass/Vol] 99 mg/dL 74-106 [facility] Work Phone: [phone] Potassium [Moles/Vol] 5.0 mmol/L 3.5-5.1 [facility] Work Phone: Sodium [Moles/Vol] 138 mmol/L 136-145 [facility] Work Phone: [phone] WBC (Bld) [#/Vol] 4.8 10*3/uL 4.4-11.0 [facility] Work Phone: Blood erythrocytes count (nu mber/volume)on 10-06-2021 RBC (Bld) [#/Vol] 5.01 10*6/uL 4.6-6.2 [facility] Work Phone: [phone] Blood hemoglobin measurement (mass/volume)on 10-06-2021 Hemoglobin (Bld) [Mass/Vol] 15.1 g/dL 13.0-16.5 [facility] Work Phone: [phone] Blood platelet mean volumeon 10-06-2021 Platelet mean volume (Bld) [Entitic vol] 9.7 fL 6.2-12.0 [facility] Work Phone: [phone] Determination of erythrocyte mean corpuscular volume (MCV)on 10-06-2021 MCV (RBC) [Entitic vol] 92.2 fL 80-94 [facility] Work Phone: [phone] Hematocrit Auto (Bld) [Volum e fraction]on 10-06-2021 Hematocrit (Bld) [Volume fraction] 46.2 % 40-54 [facility] Work Phone: [phone] Laboratory - Chemistry and C hemistry - challengeon 10-06-2021 CO2 [Moles/Vol] 25.0 mmol/L 21.0-32.0 [facility] Work Phone: [phone] Urea nitrogen/Creatinine [Mass ratio] 20.9 mg/mg 10-20 [facility] Work Phone: [phone] Laboratory - Hematology and Cell countson 10-06-2021 Erythrocyte distribution width (RBC) [Entitic vol] 42.5 fL 35.1-43.9 [facility] Work Phone: [phone] Erythrocyte distribution width (RBC) [Ratio] 12.5 % 11.6-14.6 [facility] Work Phone: [phone] MCH (RBC) [Entitic mass] 30.1 pg 27.0-32.0 [facility] Work Phone: MCHC Auto (RBC) [Mass/Vol]on 10-06-2021 MCHC (RBC) [Mass/Vol] 32.7 g/dL 32-36 [facility] Work Phone: No Panel Informationon 10-06 Estimated GFR (MDRD) Amer 63 mL/min >60 [facility] Work Phone: Comment on above: GFR Calc Estimated GFR (MDRD) Non-Af Amer 52 mL/min >60 [facility] Work Phone: Comment on above: Non- GFR Calc Platelets bldon 10-06-2021 Platelets (Bld) [#/Vol] 194 10*3/uL 150-450 [facility] Work Phone: Serum or plasma calcium lee urement (mass/volume)on 10-06-2021 Calcium [Mass/Vol] 9.1 mg/dL 8.5-10.1 [facility] Work Phone: Serum or plasma creatinine m easurement (mass/volume)on 10-06-2021 Creatinine [Mass/Vol] 1.39 mg/dL 0.70-1.30 [facility] Work Phone: Comment on above: The validity of the calculated GFR & GFRAA in patients over 70 years has not been determined. Clinical correlation is essential. Serum or plasma urea nitroge n measurement (mass/volume)on 10-06-2021 Urea nitrogen [Mass/Vol] 29 mg/dL 7-18 [facility] Work Phone: Thin prep Papanicolaou smear with manual screeningon 10-06-2021 Thin prep Papanicolaou smear with manual screening 5 5-15 [facility] Work Phone: Lab Report: BNP,B-Type NATRI URETIC PEPTIDEon 07-28-2017 BNP 54.2 pg/mL Invalid Interpretation Code 0-100 [facility] Work Phone: [phone] Lab Report: Basic Metabolic Profile (BMP)on 07-28-2017 Anion gap 7 mmol/L Invalid Interpretation Code 5-15 [facility] [employer] [facility] Work Phone: [phone] BUN/Creatinine Ratio 21.2 RATIO High 10-[address] [facility] [address] [facility] [employer] [facility] Work Phone: [phone] Calcium 8.6 mg/dL Invalid Interpretation Code 8.5-10.1 [facility] [employer] Work Phone: [phone] Chloride 106 mmol/L Invalid Interpretation Code 98-107 [facility] [employer] Work Phone: [phone] CO2 29.0 mmol/L Invalid Interpretation Code 21.0-32.0 [facility] Work Phone: [phone] Creatinine 1.32 mg/dL High 0.70-1.30 [facility] [employer] Work Phone: [phone] eGFR (non-black) 68 mL/min/{1.73_m2} Invalid Interpretation Code >60 [facility] Work Phone: [phone] eGFR (non-black) 56 mL/min/{1.73_m2} Low >60 [facility] Work Phone: [phone] Glucose 83 mg/dL Invalid Interpretation Code 74-106 [facility] Work Phone: [phone] Potassium 4.3 mmol/L Invalid Interpretation Code 3.5-5.1 [facility] Work Phone: [phone] Sodium 142 mmol/L Invalid Interpretation Code 136-145 [facility] Work Phone: [phone] Urea nitrogen 28 mg/dL High 7-18 [facility] Work Phone: [phone] Lab Report: Lipid Profileon 06-18-2017 Cholesterol 147 mg/dL Invalid Interpretation Code 200 [facility] [employer] Work Phone: [phone] HDL Cholesterol 64 mg/dL Invalid Interpretation Code [facility] [employer] Work Phone: [phone] LDL Cholesterol 72 mg/dL Invalid Interpretation Code 0-130 [facility] Work Phone: [phone] Triglyceride 55 mg/dL Invalid Interpretation Code [facility] Work Phone: [phone] very low density lipoproteins 11 mg/dL Invalid Interpretation Code 5-40 [facility] Work Phone: [phone] Lab Report: Liver Profileon 06-18-2017 Alanine aminotransferase (ALT) 34 U/L Invalid Interpretation Code 12-78 [facility] Work Phone: [phone] Albumin 3.5 g/dL Invalid Interpretation Code 3.4-5.0 [facility] Work Phone: [phone] Alkaline phosphatase (ALP) 83 U/L Invalid Interpretation Code 45-117 [facility] Work Phone: [phone] Aspartate aminotransferase (AST) 31 U/L Invalid Interpretation Code 15-37 [facility] Work Phone: [phone] Bilirubin (direct) 0.15 mg/dL Invalid Interpretation Code 0.00-0.30 [facility] Work Phone: [phone] Bilirubin (total) 0.50 mg/dL Invalid Interpretation Code 0.20-1.00 [facility] Phone: [phone] Globulin 3.3 g/dL Invalid Interpretation Code 2.2-4.2 [facility] Work Phone: [phone] Protein 6.8 g/dL Invalid Interpretation Code 6.4-8.2 [facility] Work Phone: [phone]) Lab Report: Lipid Profileon 12-10-2016 Cholesterol in HDL mass conc 57 mg/dL Invalid Interpretation Code [facility] Work Phone: [phone] Cholesterol in LDL mass conc 70 mg/dL Invalid Interpretation Code 0-130 [facility] Work Phone: [phone] Cholesterol mass conc 137 mg/dL Invalid Interpretation Code 200 [facility] Work Phone: [phone] Lipoprotein.pre-beta mass conc 10 mg/dL Invalid Interpretation Code 5-40 [facility] Work Phone: [phone] Triglyceride mass conc 48 mg/dL Invalid Interpretation Code [facility] Work Phone: [phone]) Lab Report: Liver Profileon 12-10-2016 Albumin mass conc 3.4 g/dL Invalid Interpretation Code 3.4-5.0 [facility] Work Phone: [phone] Alkaline phosphatase (ALP) 94 U/L Invalid Interpretation Code 45-117 [facility] Work Phone: [phone] ALP enzyme act/vol (Bld) 94 U/L 45-117 [facility] Work Phone: [phone] ALT enzyme act/vol 33 U/L Invalid Interpretation Code 12-78 [facility] Work Phone: [phone] AST enzyme act/vol 27 U/L Invalid Interpretation Code 15-37 [facility] Work Phone: [phone] Bilirubin mass conc 0.60 mg/dL Invalid Interpretation Code 0.20-1.00 [facility] Work Phone: [phone] Bilirubin.direct mass conc 0.14 mg/dL Invalid Interpretation Code 0.00-0.30 [facility] Work Phone: [phone] Globulin 3.2 g/dL Invalid Interpretation Code 2.3-3.5 [facility] Work Phone: [phone] Globulin mass conc (S) 3.2 g/dL 2.3-3.5 [facility] [employer] Work Phone: [phone] Protein mass conc 6.6 g/dL Invalid Interpretation Code 6.4-8.2 [facility] [employer] Work Phone: [phone] Office Visiton 07-16-2016 Documentation of current medications (procedure) Done Invalid Interpretation Code [facility] [employer] Work Phone: [phone] Protein mass conc Done [facility] [employer] Work Phone: [phone] Office Visiton 07-16-2015 General cardiovascular disease 10Y risk [#] Superior.Marcella'Agoobinna N/A Invalid Interpretation Code [facility] [employer] Work Phone: [phone] Tobacco smoking status LAIS Tobacco smoking status NHIS Invalid Interpretation Code [facility] Work Phone: [phone] Tobacco smoking status LAIS Never smoker [facility] [employer] Work Phone: [phone] Tobacco use [facility] Never smoker Invalid Interpretation Code [facility] Work Phone: [phone] Office Visiton 07-17-2014 cardiac risk group C Invalid Interpretation Code [facility] [employer] Work Phone: [phone]) Lab Report: Basic Metabolic Profile (BMP)on 05-30-2014 Anion gap 5 mmol/L Invalid Interpretation Code 5-15 [facility] Work Phone: [phone] Anion gap molar conc 5 mmol/L 5-[address] [facility] Work Phone: [phone] Calcium mass conc 9.2 mg/dL Invalid Interpretation Code 8.5-10.1 [facility] Work Phone: [phone] Chloride molar conc 103 mmol/L Invalid Interpretation Code 98-107 [facility] Work Phone: [phone] CO2 30.0 mmol/L Invalid Interpretation Code 21.0-32.0 [facility] Work Phone: [phone] CO2 ppres (BldV) 30.0 mmol/L 21.0-32.0 [facility] Work Phone: [phone] Creatinine mass conc 1.0 mg/dL Invalid Interpretation Code 0.8-1.3 [facility] Work Phone: [phone] Glucose 94 mg/dL Invalid Interpretation Code 70-110 [facility] Work Phone: [phone] Glucose mass conc 94 mg/dL 70-110 [facility] Work Phone: [phone] Potassium molar conc 4.2 mmol/L Invalid Interpretation Code 3.5-5.1 [facility] Work Phone: [phone] Sodium molar conc 138 mmol/L Invalid Interpretation Code 136-145 [facility] Work Phone: [phone] Urea nitrogen mass conc 20 mg/dL Critically high 7-18 [facility] Work Phone: [phone] Urea nitrogen/Creatinine mass ratio 20.0 RATIO Invalid Interpretation Code 10-20 [facility] Work Phone: [phone] Lab Report: Liver Profileon 05-30-2014 ALK P 73 U/L 50-136 [facility] Work Phone: [phone] GE use only - for [employer] import when terms are not otherwise specified 73 U/L Invalid Interpretation Code 50-136 [facility] Work Phone: [phone]) Lab Report: CBCon 10-02-2013 Erythrocytes (RBC) 4.78 10*6/uL Normal 4.6-6.2 [employer] Work Phone: [phone] Hematocrit (HCT) 42.3 % Normal 40-54 [facility] Work Phone: [phone] Hematocrit Volume Fraction (Bld) 42.3 % Normal 40-54 [facility] Work [phone] Hemoglobin mass conc (Bld) 14.3 g/dL Normal 13.0-16.5 [facility] Work Phone: [phone] MCH 29.9 pg Normal 27.0-32.0 [facility] Work Phone: [phone]) MCH Entitic mass (RBC) 29.9 pg Normal 27.0-32.0 [facility] Work Phone: [phone] MCHC 33.8 G/GL Normal 32-36 [facility] Work Phone: [phone]) MCHC mass conc (RBC) 33.8 G/GL Normal 32-[address] [facility] Work Phone: [phone] MCV 88.5 fL Normal 80-94 [facility] Work Phone: [phone]) MCV Entitic volume (RBC) 88.5 fL Normal 80-94 [facility] Work Phone: [phone]) Platelet mean volume Entitic volume (Bld) 9.8 fL Normal 6.2-12.0 [facility] Work Phone: [phone]) Platelets 207 10*3/mm3 Normal 150-450 [facility] Work Phone: [phone] Platelets #/vol (Bld) 207 10*3/mm3 Normal 150-450 [facility] Work Phone: [phone] PMV by Rafael 9.8 fL Normal 6.2-12.0 [facility] Work Phone: [phone] RBC #/vol (Bld) 4.78 10*6/uL Normal 4.6-6.2 [facility] Work [phone] WBC #/vol (Bld) 5.3 10*3/uL Normal 4.4-11.0 [facility] Work Phone: [phone] WBC (Leukocytes) 5.3 10*3/uL Normal 4.4-11.0 [facility] Work Phone: [phone]) Lab Report: PTon 10-02-2013 INR Coag RelTime (PPP) 1.0 {INR} Normal [facility] Work Phone: [phone] INR in blood by coagulation 1.0 {INR} Normal [facility] Work Phone: [phone] prothrombin time, actual/normal, ratio 12.6 SECONDS Normal 11.9-14.4 [facility] Work Phone: [phone] PTP 12.6 SECONDS Normal 11.9-14.4 [facility] Work Phone: [phone] Clinical Lists Update: Prelo security representative 07-22-2012 Albumin/Globulin mass ratio 1.2 {ratio} Invalid Interpretation Code [facility] Work Phone: [phone] Globulin 3.0 g/dL Invalid Interpretation Code [facility] Work Phone: [phone] Globulin mass conc (S) 3.0 g/dL [facility] Work Phone: [phone] Lab Report: PSAon 07-21-2011 prostate specific antigen (PSA) screening 2.4 ng/mL Normal 0.0-4.0 [facility] Work Phone: [phone] Protein mass conc 2.4 ng/mL Normal 0.0-4.0 [facility] Work Phone: [phone] Vital Signs Date Time Vital Sign Value Performing Clinician Jana rodríguez 11-03-2024 12:12-0400 Body temperature 97.1 [degF] Dr. Manuel Simpson MD Work Phone: [facility] 11-03-2024 12:12-0400 Diastolic blood pressure 81 mm[Hg] Dr. Manuel Simpson MD Work Phone: [facility] 11-03-2024 12:12-0400 Heart rate 50 /min Dr. Manuel Simpson MD Work Phone: [facility] 11-03-2024 12:12-0400 Respiratory rate 16 /min Dr. Manuel Simpson MD Work Phone: [facility] 11-03-2024 12:12-0400 SaO2% (BldA) [Mass fraction] 97 % Dr. Manuel Simpson MD Work Phone: [phone] [place] [address] 11-03-2024 12:12-0400 Systolic blood pressure 144 mm[Hg] Dr. Manuel Simpson MD Work Phone: [phone] [place] [address] 11-03-2024 09:07-0400 Body height 177.[address] Manuel Simpson MD Work Phone: [phone] [place] [address] 11-03-2024 09:07-0400 Body mass index (BMI) [Ratio] 23.3 kg/m2 Dr. Manuel Simpson MD Work Phone: [phone] [place] [address] 11-03-2024 09:07-0400 Body weight 73.[address] Manuel Simpson MD Work Phone: [phone] [place] [address] 09-12-2024 07:56-0400 Body height 180.[address] Manuel Simpson MD Work Phone: [phone] [place] [address] 09-12-2024 07:56-0400 Body mass index (BMI) [Ratio] 22.8 kg/m2 Dr. Manuel Simpson MD Work Phone: [phone] [place] [address] 09-12-2024 07:56-0400 Body weight 74.[address] Manuel Simpson MD Work Phone: [phone] [place] [address] 09-12-2024 07:56-0400 Diastolic blood pressure 75 mm[Hg] Dr. Manuel Simpson MD Work Phone: [phone] [place] [address] 09-12-2024 07:56-0400 Heart rate 50 /min Dr. Manuel Simpson MD Work Phone: [phone] [place] [address] 09-12-2024 07:56-0400 Respiratory rate 16 /min Dr. Manuel Simpson MD Work Phone: [phone] [place] [address] 09-12-2024 07:56-0400 Systolic blood pressure 117 mm[Hg] Dr. Manuel Simpson MD Work Phone: [phone] [place] [address] 07-27-2023 08:25-0500 Body height 180.[address] Omer Simpson Work Phone: [facility] 07-27-2023 08:25-0500 Body mass index (BMI) [Ratio] 22.4 kg/m2 Dr. Omer Simpson Work Phone: [facility] 07-27-2023 08:25-0500 Body weight 73.[address] Omer Simpson Work Phone: [facility] 07-27-2023 08:25-0500 Diastolic blood pressure 79 mm[Hg] Dr. Omer Simpson Work Phone: [facility] 07-27-2023 08:25-0500 Heart rate 51 /min Dr. Omer Simpson Work Phone: [facility] 07-27-2023 08:25-0500 Respiratory rate 16 /min Dr. Omer Simpson Work Phone: [facility] 07-27-2023 08:25-0500 Systolic blood pressure 127 mm[Hg] Dr. Omer Simpson Work Phone: [facility] 04-26-2022 00:21-0500 Heart rate 64 /min Dr. Omer Simpson Work Phone: [facility] Work Phone: 04-26-2022 00:21-0500 Respiratory rate 15 /min Dr. Omer Simpson Work Phone: [facility] Work Phone: 04-26-2022 00:21-0500 SaO2% (BldA) [Mass fraction] 99 % Dr. Omer Simpson Work Phone: [facility] Work Phone: 04-25-2022 22:22-0500 Body height 175.[address] Omer Simpson Work Phone: [facility] Work Phone: 04-25-2022 22:22-0500 Body mass index (BMI) [Ratio] 23.5 kg/m2 Dr. Omer Simpson Work Phone: [facility] Work Phone: 04-25-2022 22:22-0500 Body temperature 98.1 [degF] Dr. Omer Simpson Work Phone: [facility] Work Phone: 04-25-2022 22:22-0500 Body weight 72.[address] Omer Simpson Work Phone: [facility] Work Phone: 04-25-2022 22:22-0500 Diastolic blood pressure 81 mm[Hg] Dr. Omer Simpson Work Phone: [facility] Work Phone: 04-25-2022 22:22-0500 Systolic blood pressure 147 mm[Hg] Dr. Omer Simpson Work Phone: [facility] Work Phone: 03-26-2022 14:15-0400 Diastolic blood pressure 84 mm[Hg] Dr. Omer Simpson Work Phone: [facility] Work Phone: 03-26-2022 14:15-0400 Heart rate 49 /min Dr. Omer Simpson Work Phone: [facility] Work Phone: 03-26-2022 14:15-0400 Respiratory rate 14 /min Dr. Omer Simpson Work Phone: [facility] Work Phone: 03-26-2022 14:15-0400 SaO2% (BldA) [Mass fraction] 99 % Dr. Omer Simpson Work Phone: [facility] Work Phone: 03-26-2022 14:15-0400 Systolic blood pressure 153 mm[Hg] Dr. Omer Simpson Work Phone: [facility] Work Phone: 03-26-2022 13:21-0400 Body height 177.[address] Omer Simpson Work Phone: [facility] Work Phone: 03-26-2022 13:21-0400 Body mass index (BMI) [Ratio] 22.9 kg/m2 Dr. Omer Simpson Work Phone: [facility] Work Phone: 03-26-2022 13:21-0400 Body temperature 97.1 [degF] Dr. Omer Simpson Work Phone: [facility] Work Phone: 03-26-2022 13:21-0400 Body weight 72.[address] Omer Simpson Work Phone: [facility] Work Phone: 07-16-2016 09:02-0500 BMI (Body Mass Index) 23.1 [...] 09:02-0500 Weight 73.03 kg Pardeep Mason MD [facility] Work Phone: 07-21-2011 13:140500 Height 177.8 cm Pardeep Mason MD [facility] Work Phone: Encounters Encounter Date Encounter Type Care Provider Facility Start: 04-03-2025 ambulatory Manuel Bates lity:[facility] Start: 03-27-2025 Encounter for other preprocedural examination [facility] Start: 03-20-2025 End: 03-20-2025 ambulatory [facility] Facility:[facility] Start: 03-12-2025 End: 03-12-[address] Manuel Simpson MD Work Phone: -[facility] Start: 03-12-2025 End: 03-12-2025 Patient encounter procedure Pauline Nieto -[facility] Work Phone: Start: 01-17-2025 End: 01-17-[address] Manuel Simpson MD Work Phone: -[facility] Start: 01-17-2025 End: 01-17-[address] Pardeep Mason MD -[facility] Work Phone: Start: 11-03-2024 End: 11-03-2024 Admission to same day surgery center Dr. Mkie Dougherty [facility] Start: 11-03-2024 End: 11-03-2024 ambulatory Mike Dougherty Facility:[facility] Start: 10-24-2024 End: 10-24-[address] Manuel Simpson MD Work Phone: [facility] Work Phone: Start: 10-24-2024 End: 10-24-[address] Mike Dougherty MD -[facility] Work Phone: Start: 10-24-2024 End: 10-24-2024 ambulatory Mike Dougherty Facility:[facility] Start: 10-18-2024 End: 10-18-[address] Manuel Simpson MD Work Phone: [facility] Work Phone: Start: 10-18-2024 End: 10-18-[address] Pardeep Mason MD -[facility] Work Phone: Start: 09-12-2024 End: 09-12-[address] Pardeep Mason MD -[facility] Work Phone: Start: 09-12-2024 End: 09-12-2024 ambulatory Manuel Simpson [facility] Start: 07-19-2024 End: 07-19-2024 ambulatory Pardeep Mason Facility:[facility] Start: 07-19-2024 End: 07-19-[address] Pardeep Mason MD -[facility] Work Phone: Start: 05-17-2024 End: 05-17-2024 ambulatory [facility] [place] Facility:[facility] Start: 04-19-2024 End: 04-19-2024 ambulatory [facility] [place] Facility:[facility] Start: 04-07-2024 End: 04-07-2024 [facility] Start: 04-07-2024 End: 04-07-2024 ambulatory [facility] [place] Facility:[facility] Start: 07-27-2023 End: 07-27-[address] Omer Simpson Work Phone: [facility] Work Phone: Start: 07-21-2023 End: 07-21-[address] Omer Simpson Work Phone: [facility] Work Phone: Start: 07-21-2023 End: 07-21-[address] Omer Simpson Work Phone: [facility] Work Phone: Start: 07-09-2023 Non-patient / Non-visit Dr. Oswaldo Simpson Work Phone: [facility] Work Phone: Start: 07-06-2023 Non-patient / Non-visit Dr. Oswaldo Simpson Work Phone: [facility] Start: 07-06-2023 End: 07-06-[address] Omer Simpson Work Phone: [facility] Work Phone: Start: 07-06-2023 End: 07-06-[address] Omer Simpson Work Phone: [facility] Work Phone: Start: 05-17-2023 Non-patient / Non-visit Dr. Oswaldo Simpson Work Phone: [facility] Work Phone: Start: 05-17-2023 Non-patient / Non-visit Dr. Oswaldo Simpson Work Phone: [facility] Start: 05-17-2023 End: 05-17-[address] Omer Simpson Work Phone: [facility] Work Phone: Start: 05-17-2023 End: 05-17-[address] Omer Simpson Work Phone: [facility] Work Phone: Start: 04-25-2022 End: 04-26-2022 Emergency department patient visit Dr. Omer Simpson Work Phone: [facility]-Emergency Department Start: 03-26-2022 End: 03-26-[address] Omer Simpson Work Phone: [facility] Work Phone: Start: 03-26-2022 End: 03-26-[address] Omer Simpson Work Phone: [facility] Start: 03-11-2022 End: 03-11-[address] Omer Simpson Work Phone: [facility] Start: 12-23-2021 End: 12-23-[address] Omer Simpson Work Phone: [facility] Start: 12-05-2021 End: 12-05-[address] Omer Simpson Work Phone: [facility] Start: 10-07-2021 End: 10-07-[address] Omer Simpson Work Phone: [facility]-Pulmonary Services/Neurology Start: 10-07-2021 Non-patient / Non-visit Dr. Oswaldo Simpson Work Phone: [facility] Start: 10-06-2021 End: 10-06-[address] Omer Simpson Work Phone: [facility] Start: 08-29-2021 End: 08-29-[address] Omer Simpson Work Phone: [facility] Start: 03-21-2018 End: 03-24-2018 ambulatory MATTHIAS LARES [facility] Procedures Date Procedure Procedure Detail Performing Clinician Start: 11-03-2024 Fluoroscopic guidance Marcella Simpson MD Work Phone: Start: 10-24-2024 CT of abdomen and pe lvis without contrast Dr. Manuel Simpson MD Work Phone: Start: 07-21-2023 Diagnostic radiograp hy of abdomen Dr. Omer Simpson Work Phone: Start: 07-21-[address] Pool Simpson Work Phone: Start: 05-17-2023 Cardiovascular stres s test using pharmacologic stress agent Dr. Omer Simpson Work Phone: Start: 04-25-2022 X-ray of both feet Dr. Omer Simpson Work Phone: Start: 03-26-[address] Alireza Simpson Work Phone: Start: 03-26-2022 Computerized axial tomography of lumbar spine with contrast Dr. Omer Simpson Work Phone: Start: 12-23-2021 Computed tomography of abdomen and pelvis with contrast Dr. Omer Simpson Work Phone: Start: 10-06-2021 Diagnostic radiograp hy of abdomen Dr. Omer Simpson Work Phone: Start: 06-11-2017 End: 06-18-2017 *Hepatic Function Panel Jamari Rodriguez Start: 06-11-2017 End: 06-18-2017 Lipid panel [AGGREGATE] Jamari Rodriguez Start: 11-18-2016 End: 12-10-2016 *Hepatic Function Panel Jamari Rodriguez Start: 11-18-2016 End: 12-10-2016 Lipid panel [AGGREGATE] Jamari Rodriguez Start: 07-16-2016 End: 07-16-2016 CHIEF CLERK Pardeep Mason MD Start: 07-16-2016 End: 07-16-2016 Follow [...] [AGGREGATE] Jamari Rodriguez Start: 10-11-2013 End: 10-11-2013 CHIEF CLERK An Cooper PA-C Work Phone: Start: 10-11-2013 [...] Panel Jamari Rodriguez Start: 09-23-2012 End: 09-23-2012 CHIEF CLERK Pardeep Mason MD Start: 09-23-2012 End: 09-23-2012 [...] Treatment Date Care Activity Detail Author Start: 11-03-2024 Kajal sharpmntyin manj&/rmvl ureteral calculus ANESTH STONE REMOVAL [facility] Start: 11-03-2024 Cysto w/ureteroscopy w/lithotripsy CYSTOURETERO W/LITHOTRIPSY [facility] Start: 11-03-2024 Ambulation without limitation [facility] Start: 11-03-2024 Medication education [facility] Start: 11-03-2024 Patient discharge [facility] Start: 11-03-2024 Taking patient vital signs [facility] Start: 11-03-2024 [facility] Start: 07-22-2017 End: 07-22-2017 Appointment Appointment [facility] Work Phone: Start: 06-11-2017 End: 06-18-2017 *Hepatic Function Panel *Hepatic Function Panel [facility] Work Phone: Start: 06-11-2017 End: 06-18-2017 Lipid panel [AGGREGATE] *Lipid Profile CC PCP [facility] Work Phone: Start: 11-18-2016 End: 12-10-2016 *Hepatic Function Panel *Hepatic Function Panel [facility] Work Phone: Start: 11-18-2016 End: 12-10-2016 Lipid panel [AGGREGATE] *Lipid Profile CC PCP [facility] Work Phone: Start: 07-16-2016 End: 07-16-2016 CHIEF CLERK CHIEF CLERK [facility] Work Phone: Start: 07-16-2016 End: 07-16-2016 Follow Up Appt 1 year Follow Up Appt 1 year [facility] Work Phone: Start: 02-28-2016 End: 05-20-2016 *Hepatic Function Panel *Hepatic Function Panel [facility] Work Phone: Start: 02-28-2016 End: 05-20-2016 Lipid panel [AGGREGATE] *Lipid Profile CC PCP [facility] Work Phone: Start: 08-14-2015 End: 08-28-2015 *Hepatic Function Panel *Hepatic Function Panel [facility] Work Phone: Start: 08-14-2015 End: 08-28-2015 Lipid panel [AGGREGATE] *Lipid Profile CC PCP [facility] Work Phone: Start: 07-16-2015 End: 07-16-2015 CHIEF CLERK CHIEF CLERK [facility] Work Phone: Start: 07-16-2015 End: 07-16-2015 Follow Up Appt 1 year Follow Up Appt 1 year [facility] Work Phone: Start: 12-03-2014 End: 02-13-2015 *Hepatic Function Panel *Hepatic Function Panel [facility] Work Phone: Start: 12-03-2014 End: 02-13-2015 Lipid panel [AGGREGATE] *Lipid Profile CC PCP [facility] Work Phone: Start: 07-17-2014 End: 07-17-2014 CHIEF CLERK CHIEF CLERK [facility] Work Phone: Start: 07-17-2014 End: 07-17-2014 Follow Up Appt 1 year Follow Up Appt 1 year [facility] Work Phone: Start: 04-14-2014 End: 06-01-2014 *Hepatic Function Panel *Hepatic Function Panel [facility] Work Phone: Start: 04-14-2014 End: 06-01-2014 Lipid panel [AGGREGATE] *Lipid Profile CC PCP [facility] Work Phone: Start: 01-08-2014 End: 01-08-2014 CHIEF CLERK CHIEF CLERK [facility] Work Phone: Start: 01-08-2014 End: 01-08-2014 Follow Up Appt 6 months Follow Up Appt 6 months [facility] Work Phone: Start: 10-12-2013 End: 11-09-2013 *Hepatic Function Panel *Hepatic Function Panel [facility] Work Phone: Start: 10-12-2013 End: 11-09-2013 Lipid panel [AGGREGATE] *Lipid Profile CC PCP [facility] Work Phone: Start: 10-11-2013 End: 10-11-2013 CHIEF CLERK CHIEF CLERK [facility] Work Phone: Start: 10-11-2013 End: 10-11-2013 Follow Up Appt 3 months Follow Up Appt 3 months [employer] Work Phone: Start: 10-02-2013 End: 10-02-2013 *BMP *BMP [facility] Work Phone: Start: 10-02-2013 End: 10-02-2013 CBC W Auto Differential panel - Blood *CBC without Diff [facility] Work Phone: Start: 10-02-2013 End: 10-06-2013 Chest x-ray X-Ray, Chest, PA & Lateral [employer] Work Phone: Start: 10-02-2013 End: 10-02-2013 Coagulation factor induced.INR assay in platelet poor plasma *PT/INR [facility] Work Phone: Start: 10-02-2013 End: 10-06-2013 Electrocardiogram, complete EKG (In office) [facility] Work Phone: Start: 10-02-2013 End: 10-03-2013 Left Heart Cath Left Heart Cath [facility] Work Phone: Start: 09-26-2013 End: 01-08-2014 Follow Up Appt 1 year [facility] Work [facility]: Start: 09-26-2013 End: 10-02-2013 Stress Echocardiogram (treadmill) Stress Echocardiogram (treadmill) [facility] Work Phone: Start: 04-14-2013 End: 04-26-2013 *Hepatic Function Panel *Hepatic Function Panel [employer] Work Phone: Start: 04-14-2013 End: 04-26-2013 Lipid panel [AGGREGATE] *Lipid Profile CC PCP [facility] Work Phone: Start: 10-12-2012 End: 11-03-2012 *Hepatic Function Panel *Hepatic Function Panel [employer] Work Phone: Start: 10-12-2012 End: 11-03-2012 Lipid panel [AGGREGATE] *Lipid Profile [facility] Work Phone: Start: 09-23-2012 End: 10-06-2013 *Hepatic Function Panel *Hepatic Function Panel [facility] Work Phone: Start: 09-23-2012 End: 09-23-2012 CHIEF CLERK CHIEF CLERK [facility] Work Phone: Start: 09-23-2012 End: 09-23-2012 Follow Up Appt 1 year Follow Up Appt 1 year [facility] Work Phone: Start: 09-23-2012 End: 10-06-2013 Lipid panel [AGGREGATE] *Lipid Profile [facility] Work Phone: Start: 04-14-2012 End: 04-19-2012 *Hepatic Function Panel *Hepatic Function Panel [facility] Work Phone: Start: 04-14-2012 End: 04-19-2012 Lipid panel [AGGREGATE] *Lipid Profile [facility] Work Phone: Start: 10-26-2011 End: 11-11-2011 *Hepatic Function Panel *Hepatic Function Panel [facility] Work Phone: Start: 10-26-2011 End: 11-11-2011 Lipid panel [AGGREGATE] *Lipid Profile [facility] Work Phone: Start: 07-21-2011 End: 07-21-2011 Follow Up Appt 1 year Follow Up Appt 1 year [facility] Work Phone: Patient Education [facility] Work Phone: Patient referral [facility] Work Phone: [facility] Immunizations Immunization Date Immunization Notes Care Provider [facility] 04-11-2021 tetanus toxoid, reduced diphtheria toxoid, and acellular pertussis vaccine, adsorbed Dr. Omer Simpson Work Phone: [facility] Payers Date Payer Category Payer Self-pay [id number] 2023 Medicare [id number] 2007 Medicare [id number] Private Health Insurance [id number] Unknown [id number] Unknown [id number] 2.16.8 [id number] Unknown [id number] 2.16.8 [id number] Unknown [id number] 2.16.8 [id number] Unknown [id number] 2.16.8 [id number] Unknown [id number] 2.16.8 [id number] Unknown [id number] 2.16.8 [id number] Unknown [id number] 2.16.8 [id number] Unknown [id number] 2.16.8 [id number] Unknown [id number] 2.16.8 [id number] Unknown [id number] 2.16.8 [id number] Unknown [id number] 2.16.8 [id number] Unknown [id number] 2.16.8 [id number] Unknown [id number] 2.16.8 [id number] Unknown [id number] 2.16.8 [id number] Unknown [id number] 2.16.8 [id number] Social History Date Type Detail Facility Start: 06-10-2021 End: 07-27-2023 Tobacco smoking status LAIS Unknown if ever smoked [facility] Start: 1940 Sex Assigned At Male [facility] Start: 03-07-2018 Non-smoker [facility] Start: 04-07-2024 End: 10-31-2024 Tobacco smoking status NHIS Never smoked tobacco (finding) [facility] Sex Male [facility] Medical Equipment Procedure Code Equipment Code Equipment Origin al Text Equipment Identifier Dates Cystoureteroscopy, with retrograde pyelogram, balloon dilation of ureter, laser litho STENT,URETERAL PIGTAIL [id number] FDA Start: 11-03-2024 Cystoureteroscopy, with retrograde pyelogram, balloon dilation of ureter, laser litho STENT,URETERAL PIGTAIL [id number] FDA Start: 11-03-2024 Cystoureteroscopy, with retrograde pyelogram, balloon dilation of ureter, laser litho STENT,URETERAL PIGTAIL [id number] FDA Start: 11-03-2024 MESH,3DMAX LEFT LG [id number] FDA Start: 03-14-2018 MESH,3DMAX LEFT LG [id number] FDA Start: 03-14-2018 MESH,3DMAX LEFT LG [id number] FDA Start: 03-14-2018 MESH,3DMAX LEFT LG [id number] FDA Start: 03-14-2018 MESH,3DMAX LEFT LG [id number] FDA Start: 03-14-2018 [employer] MRI IS-1 FDA Start: 11-03-2019 [employer] MRI ISOpal1 FDA Start: 11-03-2019 [employer] MRI IS-1 FDA Start: 11-03-2019 MESH,3DMAX LEFT LG [id number] FDA Start: 03-14-2018 [employer] Anirudh ESSENTIO MRI IS-1 FDA Start: 11-03-2019 [employer] C ESSENT[employer] MRI DR IS-1 FDA Start: 11-03-2019 [employer] MRI IS-1 FDA Start: 11-03-2019 MESH,3DMAX LEFT LG [id number] FDA Start: 03-14-2018 [employer] MRI IS-1 FDA Start: 11-03-2019 [employer] MRI DR IS-1 FDA Start: 11-03-2019 [employer] MRI IS-1 FDA Start: 11-03-2019 MESH,3DMAX LEFT LG [id number] FDA Start: 03-14-2018 [employer] MRI IS-1 FDA Start: 11-03-2019 [employer] MRI IS-1 FDA Start: 11-03-2019 [employer] MRI IS-1 FDA Start: 11-03-2019 MESH,3DMAX LEFT LG [id number] FDA Start: 03-14-2018 [employer] MRI IS-1 FDA Start: 11-03-2019 [employer] MRI IS-1 FDA Start: 11-03-2019 [employer] MRI IS-1 FDA Start: 11-03-2019 MESH,3DMAX LEFT LG [id number] FDA Start: 03-14-2018 [employer] MRI IS-1 FDA Start: 11-03-2019 [employer] MRI IS-1 FDA Start: 11-03-2019 [employer] MRI IS-1 FDA Start: 11-03-2019 MESH,3DMAX LEFT LG [id number] FDA Start: 03-14-2018 [employer] MRI IS-1 FDA Start: 11-03-2019 [employer] MRI IS-1 FDA Start: 11-03-2019 [employer] MRI IS-1 FDA Start: 11-03-2019 MESH,3DMAX LEFT LG [id number] FDA Start: 03-14-2018 [employer] MRI IS-1 FDA Start: 11-03-2019 [employer] MRI IS-1 FDA Start: 11-03-2019 [employer] MRI IS-1 FDA Start: 11-03-2019 Goals Date Patient Goal Desired Activity /State Functional Status Date Assessment Result Facility 11-03-2024 Functional status [facility] Work Phone: Mental Status Date Assessment Result Facility 11-03-2024 Cognitive function [facility] Work Phone: 11-03-2024 Cognitive function Patient Orien tation Person;Place;Time [place] [facility] Work Phone: 03-26-2022 Cognitive function Voice/Name [facility] Work Phone: Procedure note 03-12-2025 Note Date & Type Note Facility 03-12-2025 Procedure note [facility] Evaluation note 03-12-2025 Note Date & Type Note Facility 03-12-2025 Evaluation note Diagnosis Onset Date Resolution Non-sustained ventricular tachycardia acute March 12, 2025 12:56pm History of permanent cardiac pacemaker placement November 03, 2019 chronic March 12, 2025 12:56pm 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 Manuel Simpson MD Status:[facility] Location: [place] [address]- HPI - General General Date of Service: 11/03/24 Chief Complaint: Obstructing stone and stricture in the proximal right ureter HPI Narrative FENG COLUNGA, is a 84 M who presents hospital for treatment of a ureteral stricture he has a history of a kidney stone that was stuck in the ureter back in 2017 this was lasered after this procedure he developed a stricture in the proximal ureter several times I had to dilate the stricture he comes back in with flank pain on the right side CAT scan was done that demonstrates a stone proximal to the stricture. Plan to do a cystoscopy retrograde pyelogram balloon dilation of the stricture and laser lithotripsy of the stone and stent placement. He understands it is very possible and likely that the stricture will come back we discussed referral to tertiary care center for possible reconstruction given the very nature of the stricture and the location of the stricture it would be very difficult to do a repair. [facility] Medical History Wears hearing aid Wears glasses Cancer Arthritis Excessive bleeding Injury of back Gastric reflux Non-smoker Shortness of breath on exertion History of edema History of echocardiogram History of stress test Cardiology follow-up encounter History of irregular heartbeat Non-sustained ventricular tachycardia Mobitz type 2 second degree atrioventricular block Nonobstructive atherosclerosis of coronary artery Osteoarthritis BPH (benign prostatic hyperplasia) Urinary calculi Renal calculi Hyperlipidemia Sinus bradycardia Home Medications ???Medication ???Instructions ???Recorded ???Last Taken ???Type aspirin 81 mg tablet,delayed 81 mg PO DAILY 06/10/21 10/10/24 H istory release (Adult Low Dose Aspirin) rosuvastatin 10 mg tablet See Rx Instructions .Route 5 11/02/24 Rx .COMPLEX #90 tabs metoprolol succinate 25 mg 25 mg PO DAILY #90 tabs 09/05/24 0 11/03/24 Rx tablet,extended release 24 hr famotidine 20 mg tablet (Pepcid) 20 mg PO QDAY 09/12/24 11/02/24 Hi story multivitamin 1 tab PO QDAY 09/12/24 11/02/24 Hi story magnesium oxide 400 mg PO DAILY 10/31/24 11/02/24 History melatonin 10 mg capsule 10 mg PO QHS 10/31/24 11/02/24 His tory acetaminophen 500 mg capsule 500 mg PO Q4H PRN pain #20 caps Unknown Rx ibuprofen 600 mg tablet 600 mg PO Q6H PRN pain #20 tabs Unknown Rx phenazopyridine 100 mg tablet 100 mg PO TID PRN pain #14 tabs Unknown Rx (Pyridium) Allergy/AdvReac Type Severity Reaction Status Date / Time No Known Allergies Allergy Verified 11/03/24 08:51 Family History Father , age 71 COPD (chronic obstructive pulmonary disease) Brother Cancer brain tumor Surgical History S/P ureteral stent placement 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) History of cataract extraction (07/12/19) History of left inguinal hernia repair History of colonoscopy History of right inguinal hernia repair History of cystoscopy History of left heart catheterization (11/03/13) Social History Smoking Status: Never smoker alcohol intake: current alcohol intake frequency: holidays/special occasions only substance use type: does not use caffeine: Yes Type: carbonated beverages Number of servings: 1 and tea Number of servings: 1 Vital Signs Vital Signs Vital Signs: 11/03/24 09:07 11/03/24 09:07 Temperature 97 F L Temperature Source Temporal Pulse Rate 51 L Respiratory Rate 18 Respiratory Pattern Normal Blood Pressure 147/94 H Blood Pressure Mean 111 Blood Pressure Source Monitor Blood Pressure Position Semi-Fowlers Blood Pressure Location Right Arm Pulse Ox 100 Oxygen Delivery Method Room Air Weight Weight: 73.6 kg Body Mass Index (BMI) 23.3 11/03/24 0944 Cosigner Signature (if applicable): CC: Dr. Manuel Simpson MD; Dr. Mike Dougherty MD Signed [facility] Radiology Diagnostic study note 10-24-2024 Note Date & Type Note Facility 10-24-2024 Radiology Diagnostic study note [facility] Imaging Services [address] [place] [address] Abdomen/Pelvis without Cont MR#: [id number] Acct: [id number] Name: FENG COLUNGA Rep #: [id number] : [id number] M 84 From: Duglas Adame MD PCP: Dr. Manuel Simpson MD Status: REG CLI Study:Abdomen/Pelvis without Cont Date of Exa m: 10/24/24 Exam# [id number] Ordering Dr: Yin Dougherty MD PROCEDURE: ABDOMEN/PELVIS WITHOUT CONT 10/24/2024 REASON FOR EXAM: ABD PAIN Right flank pain. History of kidney stones. TECHNIQUE: Abdomen and pelvis CT without intravenous contrast. Noncontrast technique limits evaluation of the abdominal and pelvic viscera. Coronal and Sagittal reconstruction series were provided. One or more dose reduction techniques were used (e.g., Automated exposure control, adjustment of the mA and/or kV according to patient size, use of iterative reconstruction technique). PATIENT PREPARATION: Per protocol ORAL CONTRAST TYPE: None. CT DL volume: 6.72 mGy. DLP: 362.51 COMPARISON: Comparison is made with prior study dated December 23, 2021. FINDINGS: Lung bases: Mild dependent atelectasis dual-chamber pacemaker is seen in the heart. Liver: Stable 4.6 mm cyst in the lateral aspect of the right lobe of the liver in its midportion. Gallbladder: Several calcified gallstones. Spleen: Normal size. Stable 2.3 cm 2 cm calcified mesenteric lymph node in the left upper quadrant. Pancreas: Normal size. No surrounding inflammation. Adrenals: Unremarkable Kidneys: Moderate-sized right hydronephrosis and hydroureter due to a 3 mm calculus in the midportion of the right ureter. Nonobstructive calculus in the upper pole calyx of the right kidney. Nonobstructive calculus in the lower pole of the left kidney measuring 1.1 cm. Nonspecific bilateral perinephric stranding. Bladder: Mild degree of diffuse bladder wall thickening. Prostatic enlargement with indentation of the bladder base. The prostate measures 4.4 cm by 4.6 cm. Bowel: Colonic diverticulosis without diverticulitis.. Moderate-sized hiatal hernia. Appendix: The appendix is not identified. There is no inflammatory process identified in the right lower quadrant to suggest appendicitis. Lymph nodes: Unremarkable. Vasculature: Mild diffuse atherosclerotic calcifications are noted. Peritoneum / Retroperitoneum: Unremarkable Bones: Degenerative changes of the spine. CT/Abdomen/Pelvis without Cont IMPRESSION: Moderate degree of right hydronephrosis due to a 3 mm calculus in the midportionof the right ureter. Nonobstructive bilateral intrarenal calculi and nonspecific bilateral perinephric stranding. Multiple gallstones. Sigmoid diverticulosis. Prostatic hypertrophy with indentation of the bladder base. Bladder wall thickening. Reading Location: [id number] CC: Dr. Manuel Simpson MD; Dr. 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 Sinus bradycardia chronic History of permanent cardiac pacemaker placement November 03, 2019 acute 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 Sinus bradycardia [facility] Work Phone: Evaluation note 11-03-2019 Note Date & Type Note Facility 11-03-2019 Evaluation note Diagnosis Onset Date History of permanent cardiac pacemaker placement November 03, 2019 chronic Nonobstructive atheroscleros is of coronary artery [facility] Work Phone: Evaluation note 11-03-2019 Note Date & Type Note Facility 11-03-2019 Evaluation note Diagnosis Onset Date Resolution History of permanent cardiac pacemaker placement November 03, 2019 chronic September 12, 2024 7:50am Nonobstructive atherosclerosis of coronary artery chronic September 12, 2024 7:50am [facility] Work Phone: Evaluation note Note Date & Type Note Facility Evaluation note No assessment information availa [facility] Work Phone: Reason for referral (narrative) Note Date & Type Note Facility Reason for referral (narrative) No reason for referral information available [facility] Work Phone: Chief Complaint and Reason for Visit Chief Complaint 3 mos remote PPM f/u Encounter for preprocedural cardiovascular Encounter for preprocedural cardiovascular Reason for Visit History of permanent cardiac 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 Sinus bradycardia Chief Complaint 3 mos remote PPM f/u Encounter for preprocedural cardiovascular Encounter for preprocedural cardiovascular 3 mos remote PPM f/u STRICTURE OF URETER, CROSSING VESSEL Reason for Visit History of permanent cardiac 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 Sinus bradycardia History of permanent cardiac 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 Sinus bradycardia Chief Complaint 3 mos remote PPM f/u STRICTURE OF URETER, CROSSING VESSEL 3 mos remote PPM f/u LUMBAR SPINAL STENOSIS Reason for Visit History of permanent cardiac 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 Sinus bradycardia History of permanent cardiac 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 Sinus bradycardia Chief Complaint 3 mos remote PPM f/u LUMBAR SPINAL STENOSIS LEG Reason for Visit History of permanent cardiac 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 Sinus bradycardia Chief Complaint NSVT NSVT Amb Documentation Chief Complaint NSVT NSVT Amb Documentation Other ventricular tachycardia Chief Complaint NSVT NSVT Amb Documentation Other ventricular tachycardia Amb Documentation 1 Y FU Reason for Visit History of permanent cardiac pacemaker placement Nonobstructive atherosclerosis of coronary artery Chief Complaint Admit Date Pacer Check Remote July 19, 2024 2 :31am 1 Y FU September 12, 2024 7:50 am Pacer Check Remote October 18, 2024 2:32am R10.84 Generalized abdominal pain October 242024 10:18am Reason for Visit Admit Date History of permanent cardiac pacemaker p lacement September 12, 2024 7:50am Nonobstructive atherosclerosis of adorno ry artery September 12, 2024 7:50am Chief Complaint Admit Date Pacer Check Remote October 18, 2024 2:32am R10.84 Generalized abdominal pain October 242024 10:18am Cysto,Ureteroscopy,Retro,Dil,Laser,Stent November 03, 2024 8:39am Pacer Check Remote January 17, 2025 2:3 1am Chief Complaint Admit Date Pacer Check Remote January 17, 2025 2:3 1am Pacer Check Remote March 12, 2025 9:00am BSX UPDATE March 12, 2025 12:56pm Reason for Visit Admit Date Non-sustained ventricular tachycardia Se ptember 2024 12:56pm History of permanent cardiac pacemaker p lacement March 12, 2025 12:56pm 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 March 12, 2025 12:56pm Family History No Family History Records Found Relationship Condition Age at Onset Recorded Date/T aliya father Chronic obstructive pulmonary disease Unk nown brother Malignant neoplasm Unknown Advance Directives No Advanced Directives Records Found Advance Directive Response Recorded Date/ Time Advance Directives Yes November 02 0 11:17am Living Will Yes April 11 3:13pm Power of Didactic Program In Dietetics Director Yes April 11, 2021 3:13pm Advance Directive Response Recorded Date/ Time Advance Directives Yes November 02 0 10:17am Living Will No April 25 10:39pm Power of Didactic Program In Dietetics Director No April 25, 2022 10:39pm Advance Directive Response Recorded Date/ Time Living Will No April 25 11:39pm Do you have a Healthcare Power of Didactic Program In Dietetics Director? No April 25, 2022 11:39pm Advance Directives Yes November 02 0 11:17am Advance Directive Response Recorded Date/ Time Do you have a Healthcare Power of Didactic Program In Dietetics Director? Yes October 31, 2024 3:31pm Advance Directives Yes November 02 0 11:17am Advance Directive Response Recorded Date/ Time Advance Directives Yes November 02 0 11:17am Summary Purpose Additional Source Comments Goals (unrecognized section and content) Goals may be documented in a n alternate sectionGoals may be documented in an alternate sectionGoals may be documented in an alternate sectionGoals may be documented in an alternate sectionGoals may be documented in an alternate sectionGoals may be documented in an alternate sectionGoals may be documented in an alternate sectionGoals may be documented in an alternate sectionGoals may be documented in an alternate sectionGoals may be documented in an alternate sectionGoals may be documented in an alternate section Care Teams (unrecognized sec tion and content) Team Status: Active Member Role Status Dates Dr. Omer Simpson MD Family Provider Active Dr. Omer Simpson MD Primary Care Provider Activ e Team Status: Active Member Role Status Dates Dr. Omer Simpson MD Primary Care Provider Activ cheryl Watson SLITTER SCORER CUT OFF OPERATOR, SLITTER SCORER CUT OFF OPERATOR-C Referring Provider, Other Provide r Active Dr. Pardeep Mason MD Attending Provider Active Team Status: Active Member Role Status Dates Dr. Omer Simpson MD Primary Care Provider Activ e Gary Watson SLITTER SCORER CUT OFF OPERATOR, SLITTER SCORER CUT OFF OPERATOR-C Attending Provider Active Team Status: Inactive Member Role Status Dates Dr. Omer Simpson MD Primary Care Provider Activ e Gary Watson SLITTER SCORER CUT OFF OPERATOR, SLITTER SCORER CUT OFF OPERATOR-C Attending Provider, Referring Pro vider Active Team Status: Active Member Role Status Dates Dr. Omer Simpson MD Primary Care Provider Activ e Dr. Pardeep Mason MD Attending Provider Active Team Status: Inactive Member Role Status Dates Dr. Omer Simpson MD Primary Care Provider, Refe rring Provider Active An Cooper PA, PA Attending Provider Active Team Status: Active Member Role Status Dates Dr. Omer Simpson MD Primary Care Provider Activ e Dr. Pardeep Mason MD Attending Provider Active Gary Watson SLITTER SCORER CUT OFF OPERATOR, SLITTER SCORER CUT OFF OPERATOR-C Referring Provider Active Team Status: Inactive Member Role Status Dates Dr. Omer Simpson MD Primary Care Provider, Attending Provider, Referring Provider Active Team Status: Active Member Role Status Dates Dr. Manuel Simpson MD Primary Care Provider Acti ve Team Status: Inactive Member Role Status Dates Dr. Manuel Simpson MD Primary Care Provider Acti ve Start: July 19, 2024 End: July 19, 2024 Dr. Pardeep Mason MD Attending Provider Active S tart: July 19, 2024 End: July 19, 2024 Dr. Pardeep Mason MD Referring Provider Active S tart: July 19, 2024 End: July 19, 2024 Team Status: Inactive Member Role Status Dates Dr. Manuel Simpson MD Primary Care Provider Acti ve Start: September 12, 2024 End: September 12, 2024 Dr. Manuel Simpson MD Referring Provider Active Start: September 12, 2024 End: September 12, 2024 Dr. Pardeep Mason MD Attending Provider Active S tart: September 12, 2024 End: September 12, 2024 Team Status: Inactive Member Role Status Dates Dr. Manuel Simpson MD Primary Care Provider Acti ve Start: October 18, 2024 End: October 18, 2024 Dr. Pardeep Mason MD Attending Provider Active S tart: October 18, 2024 End: October 18, 2024 Team Status: Active Member Role Status Dates Dr. Manuel Simpson MD Primary Care Provider Acti ve Start: October 24, 2024 Dr. Mike Dougherty MD Attending Provider Active Start: October 24, 2024 Dr. Mike Dougherty MD Referring Provider Active Start: October 24, 2024 Team Status: Inactive Member Role Status Dates Dr. Manuel Simpson MD Primary Care Provider Acti ve Start: October 24, 2024 End: October 24, 2024 Dr. Mike Dougherty MD Attending Provider Active Start: October 24, 2024 End: October 24, 2024 Dr. Mike Dougherty MD Referring Provider Active Start: October 24, 2024 End: October 24, 2024 Team Status: Active Member Role/Relationship Status Dates Dr. Manuel Simpson MD Primary Care Provider Acti ve Team Status: Inactive Member Role/Relationship Status Dates Dr. Manuel Simpson MD Primary Care Provider Acti ve Start: October 18, 2024 End: October 18, 2024 Dr. Pardeep Mason MD Attending Provider Active S tart: October 18, 2024 End: October 18, 2024 Dr. Pardeep Mason MD Referring Provider Active S tart: October 18, 2024 End: October 18, 2024 Team Status: Inactive Member Role/Relationship Status Dates Dr. Manuel Simpson MD Primary Care Provider Acti ve Start: October 24, 2024 End: October 24, 2024 Dr. Mike Dougherty MD Attending Provider Active Start: October 24, 2024 End: October 24, 2024 Dr. Mike Dougherty MD Referring Provider Active Start: October 24, 2024 End: October 24, 2024 Team Status: Inactive Member Role/Relationship Status Dates Dr. Manuel Simpson MD Primary Care Provider Acti ve Start: November 03, 2024 End: November 03, 2024 Dr. Mike Dougherty MD Attending Provider Active Start: November 03, 2024 End: November 03, 2024 Dr. Mike Dougherty MD Referring Provider Active Start: November 03, 2024 End: November 03, 2024 Team Status: Inactive Member Role/Relationship Status Dates Dr. Manuel Simpson MD Primary Care Provider Acti ve Start: January 17, 2025 End: January 17, 2025 Dr. Pardeep Mason MD Attending Provider Active S tart: January 17, 2025 End: January 17, 2025 Team Status: Active Member Role/Relationship Status Dates Dr. Manuel Simpson MD Primary care physician Act [email or web address] Team Status: Inactive Member Role/Relationship Status Dates Dr. Manuel Simpson MD Primary care physician Act [email or web address] Start: January 17, 2025 End: January 17, 2025 Dr. Pardeep Mason MD Attending physician Active Start: January 17, 2025 End: January 17, 2025 Dr. Pardeep Mason MD Referring Provider Active S tart: January 17, 2025 End: January 17, 2025 Team Status: Active Member Role/Relationship Status Dates Dr. Manuel Simpson MD Primary care physician Act [email or web address] Start: March 12, 2025 Dr. Pardeep Mason MD Attending physician Active Start: March 12, 2025 Team Status: Inactive Member Role/Relationship Status Dates Dr. Manuel Simpson MD Primary care physician Act [email or web address] Start: March 12, 2025 End: March 12, 2025 Dr. Manuel Simpson MD Referring Provider Active Start: March 12, 2025 End: March 12, 2025 Pauline Nieto Attending physician Active Start: March 12, 2025 End: March 12, 2025 Team Status: Inactive Member Role/Relationship Status Dates Dr. Manuel Simpson MD Primary care physician Act [email or web address] Start: March 12, 2025 End: March 12, 2025 Dr. Pardeep Mason MD Attending physician Active Start: March 12, 2025 End: March 12, 2025 (unrecognized sect ion and content) No Status Records FoundNo Status Records Found INFORMATION SOURCE (unrecogn ized section and content) DATE CREATED AUTHOR 11/14/2023 [facility] DATE CREATED AUTHOR AUTHOR'S ORGANIZ ATION 04/03/2025 [facility] FOR RECORDS PERTAINING TO PATIENTS WHO [...] BE BASED ON THE PRIMARY CLINICAL RECORDS. [employer] provides no warranty or guarantee of the accuracy or completeness of information in this document.
[2025-04-03 14:42] LABS: Hematocrit 43.3 % (40-54); Hemoglobin 14.5 g/dL (13.0-16.5); Mean Corp Hgb Conc 33.5 g/dL (32-36); Mean Corpuscular Volume 89.3 fL (80-94); Mean Platelet Vol. 9.1 fl (6.2-12.0); Platelet Count 193 K/mm3 (150-450); RBC Distribution Width CV 12.5 % (11.6-14.6); RBC Distribution Width SD 40.9 fl (35.1-43.9); Red Blood Count 4.85 M/mm3 (4.6-6.2); White Blood Count 4.9 K/mm3 (4.4-11.0)
[2025-04-03 18:35] LABS: Anion Gap 11 (5-15); BUN 25 mg/dL (4-19); BUN/Creat Ratio 18.6 RATIO (10-20); Calcium,Total 9.0 mg/dL (7.6-11.0); Carbon Dioxide 22.9 mmol/L (21.0-32.0); Chloride 105 mmol/L (98-108); Cholesterol 139 mg/dL (<=200); Glucose 133 mg/dL (70-99); Low Density Lipoprotein Calc. 76 mg/dL; Potassium 4.6 mmol/L (3.3-5.1); Triglycerides 87 mg/dL; Very Low Density Lipoprotein 17 mg/dL (5-40); Vitamin D,25 Hydroxy 40.6 ng/mL (30-100); cholesterol:hdl ratio screen 3.03
[2025-04-03 20:44] LABS: Iron 92 ug/dL (65-175)
== END | disposition home or self-care (01) ==
PROVIDERS: PCP Family Medicine; Referring Provider Family Medicine; Visit Provider Urology
DX: Z01.810 Encounter for preprocedural cardiovascular examination (principal); N18.30 Chronic kidney disease, stage 3 unspecified; Z01.818 Encounter for other preprocedural examination; E78.5 Hyperlipidemia, unspecified
CPT/HCPCS: 80048; 80061; 82306; 83540; 85027; 93005